=== PATIENT | male | born 1985 | race Caucasian/White ===

== ENCOUNTER 2016-06-23 20:44 | Emergency (ER) | payer OTHER ==
[2016-06-23 20:47] VITALS: BP 135/78; PULSE 84; RESP 18; TEMP 98.8
[2016-06-23] MEDS ORDERED: CLINDAMYCIN 150 MG CAP PO STA (20:57)
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
== END 2016-06-23 21:05 | disposition home or self-care (01) ==
LOC: EC 20:44
DX: K02.9 Dental caries, unspecified (principal); F17.200 Nicotine dependence, unspecified, uncomplicated; Z88.0 Allergy status to penicillin
CPT/HCPCS: 99282

== ENCOUNTER 2020-08-13 13:11 | Observation (INO) | payer OTHER ==
[2020-08-13] MEDS ORDERED: ASPIRIN 81 MG PO STA (13:30)
[2020-08-13] MEDS ORDERED: NITROGLYCERIN OINT 1 INCH/GM PACKET TOPICAL STA (13:30)
[2020-08-13] MEDS ORDERED: SODIUM CHLORIDE 0.9% 1,000 ML IV ONE (13:39)
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
[2020-08-13] MEDS ORDERED: LORazepam 2 MG/ML INJ IV STA (13:40)
--- NOTE | 2020-08-13 14:01 | XR ---
EXAMINATION TYPE: XR chest 2V DATE OF EXAM: 08/13/2020 COMPARISON: 06/16/1949 TECHNIQUE: PA and lateral views submitted. HISTORY: Chest pain FINDINGS: The lungs are clear and there is no pneumothorax, pleural effusion, or focal pneumonia. Size normal . No overt failure. Mild hyperinflation. IMPRESSION: 1. No acute process.
[2020-08-13 14:27] LABS: Basophils % (A) 1 %; Eosinophils # (A) 0.1 k/uL (0-0.7); Eosinophils % (A) 2 %; HCT 47.9 % (39.0-53.0); HGB 16.9 gm/dL (13.0-17.5); Lymphocytes # (A) 1.8 k/uL (1.0-4.8); Lymphocytes % (A) 24 %; MCH 31.7 pg (25.0-35.0); MCHC 35.2 g/dL (31.0-37.0); Mean Platelet Volume 7.4; Monocytes # (A) 0.8 k/uL (0-1.0); Monocytes % (A) 10 %; Neutrophils # (A) 4.8 k/uL (1.3-7.7); Neutrophils % (A) 63 %; Platelet Count 187 k/uL (150-450); RBC 5.32 m/uL (4.30-5.90); RDW 12.7 % (11.5-15.5); WBC 7.7 k/uL (3.8-10.6)
[2020-08-13 14:35] LABS: Partial Thromboplastin Time 23.1 sec (22.0-30.0); Prothrombin Time 10.5 sec (9.0-12.0)
[2020-08-13 14:37] LABS: ALT 28 U/L (4-49); AST 45 U/L (17-59); African American GFR (CKD) >90 (>60 ml/min/1.73 sqM); Albumin 4.6 g/dL (3.5-5.0); Alkaline Phosphatase 57 U/L (38-126); Anion Gap 11 mmol/L; Blood Urea Nitrogen 10 mg/dL (9-20); Calcium 9.7 mg/dL (8.4-10.2); Carbon Dioxide 22 mmol/L (22-30); Chloride 107 mmol/L (98-107); Glucose 102 mg/dL (74-99); Magnesium 1.9 mg/dL (1.6-2.3); Non-African American GFR(CKD) >90 (>60 ml/min/1.73 sqM); Sodium 140 mmol/L (137-145); Total Bilirubin 0.4 mg/dL (0.2-1.3); Total Protein 7.3 g/dL (6.3-8.2)
[2020-08-13] MEDS ORDERED: HEPARIN SODIUM 1,000 UN/ML (10ML VL) IV STA (15:02)
[2020-08-13] MEDS ORDERED: NITROGLYCERIN SL TABS 0.4 MG TAB SUBLINGUAL PRN (15:07)
[2020-08-13] MEDS ORDERED: HEPARIN SOD,PORK IN 0.45% NACL 25,000 UNIT in 0.45% NACL 1 250ML.BAG IV SCH (15:15)
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
[2020-08-13] MEDS ORDERED: IBUPROFEN 400 MG TAB PO STA (21:38)
[2020-08-13] MEDS: NICOTINE 14MG/24HR PATCH TRANSDERM SCH (22:21)
[2020-08-13] MEDS: NITROGLYCERIN OINT 1 INCH/GM PACKET TOPICAL SCH ×2 (22:23→23:05)
[2020-08-14] MEDS ORDERED: HEPARIN SODIUM 1,000 UN/ML (10ML VL) IV PRN (00:37)
[2020-08-14 02:27] VITALS: RESP 16
[2020-08-14] MEDS: NITROGLYCERIN OINT 1 INCH/GM PACKET TOPICAL SCH (04:38)
[2020-08-14] MEDS: NICOTINE 14MG/24HR PATCH TRANSDERM SCH (08:08)
[2020-08-14] MEDS ORDERED: ASPIRIN 325 MG TAB PO SCH (09:00)
[2020-08-14] MEDS ORDERED: ASPIRIN 81 MG PO SCH (09:00)
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
[2020-08-14 11:13] LABS: Chol/HDL Ratio 2.27; LDL Cholesterol,Calculated 53.2 mg/dL (0.0-131.0); VLDL Calculation 12.8 mg/dL (5.00-40.00)
--- NOTE | 2020-08-14 12:21 | ECHOF ---
Referral Reason:LV function MEASUREMENTS -------- HEIGHT: 170.2 cm WEIGHT: 71.7 kg BP: RVIDd: 3.0 cm (< 3.3) IVSd: 0.9 cm (0.6 - 1.1) LVIDd: 4.9 cm (3.9 - 5.3) LVPWd: 1.0 cm (0.6 - 1.1) IVSs: 1.1 cm LVIDs: 3.6 cm LVPWs: 1.5 cm LA Diam: 3.1 cm (2.7 - 3.8) LAESV Index (A-L): 15.04 ml/m Ao Diam: 3.1 cm (2.0 - 3.7) AV Cusp: 2.2 cm (1.5 - 2.6) LA Diam: 3.5 cm (2.7 - 3.8) MV EXCURSION: 22.278 mm (> 18.000) MV EF SLOPE: 99 mm/s (70 - 150) EPSS: 0.4 cm MV E Heath: 0.97 m/s MV DecT: 197 ms MV A Heath: 1.11 m/s MV E/A Ratio: 0.87 RAP: 5.00 mmHg RVSP: 25.41 mmHg FINDINGS -------- Sinus rhythm. This was a technically good study. LV size, wall thickness and systolic function are normal, with an EF greater than 55%. The left veronika tricular size is normal. The right ventricle is normal in size. Normal LA size by volume 22+/-6 ml/m2. The right atrial size is normal. The aortic valve is trileaflet, and appears structurally normal. No aortic stenosis or regurgitation. The mitral valve leaflets are mildly thickened. Mild mitral regurgitation is present. The tricuspid valve appears structurally normal. Mild tricuspid regurgitation present. Right vent ricular systolic pressure is normal at < 35 mmHg. There is no pulmonic regurgitation present. The aortic root size is normal. There is no pericardial effusion. CONCLUSIONS -------- 1. LV size, wall thickness and systolic function are normal, with an EF greater than 55%. 2. The left ventricular size is normal. 3. Normal LA size by volume 22+/-6 ml/m2. 4. The aortic valve is trileaflet, and appears structurally normal. No aortic stenosis or regurgitati on. 5. The mitral valve leaflets are mildly thickened. 6. Mild mitral regurgitation is present. 7. Mild tricuspid regurgitation present. 8. There is no pericardial effusion. PASSENGER REPRESENTATIVE: Kassandra Gabriel RDCS
--- NOTE | 2020-08-14 13:49 | ECHOS ---
STRESS ECHOCARDIOGRAM DATE OF SERVICE: AGE: 35 SEX: M HT: 5'7" WT: 158 lbs. PROTOCOL: STAGE: 4 DURATION OF EXERCISE: 12:01 HEART RATE REST: 82 BLOOD PRESSURE REST: 114/50 MAXIMUM HEART RATE ACHIEVED: 165 MAXIMUM BLOOD PRESSURE: 114/50 85% MPHR: 165 100% MPHR: 194/91 METS: 12.3 RESULTS: Baseline rhythm is a sinus mechanism, rate of 82, normal axis and intervals, normal electrocardiogram. Baseline blood pressure 114/50 minute Hg. The patient exercised on Joseph protocol for 12 minutes 1 second reaching peak rate 165 beats per minute which is equal to 90% maximum predicted heart rate. Peak blood pressure 194/91 mmHg. Test was terminated due to significant fatigue. There was no chest pain. Electrocardiograph monitoring revealed no evidence of diagnostic ischemic ST deviation. FINDINGS: Baseline echocardiogram revealed normal wall motion. At peak exercise, there was normal wall motion augmentation with no hypokinesis or dyskinesis. CONCLUSION: 1. Good exercise tolerance with normal electrocardiographic response to exercise. 2. Normal stress echocardiogram with no evidence of stress-induced ischemia. MMODL / IJN: [id number] /
[2020-08-14 14:07] LABS: Hemoglobin A1C 5.5 % (4.0-6.0)
[2020-08-14 14:59] VITALS: BP 127/88; PULSE 75; TEMP 98.2
[2020-08-14] MEDS ORDERED: CIPROFLOXACIN-DEXAMETH 0.3-0.1% DROPS 7.5 ML BTL LEFT EAR SCH (16:00)
[2020-08-14] MEDS ORDERED: CLARITHROMYCIN 500 MG TAB PO SCH (21:00)
--- NOTE | 2020-08-15 06:15 | CONS ---
CONSULTATION DATE OF CONSULTATION: 08/14/2020 REASON FOR THE CONSULTATION: Draining left ear. HISTORY OF PRESENT ILLNESS: This patient is a 35-year-old male who was admitted via the [facility] Emergency Room on 08/13/2020 with a major complaint of chest pain. While in the emergency room, the patient was given nitroglycerin and aspirin and this seemed to relieve his chest pain. An EKG was unremarkable but it was determined to admit the patient for further evaluation. In addition, this patient stated he had a draining left ear which had been going on for approximately 3 weeks. He apparently had been on one particular antibiotic and this did not seem to help and he has an allergy to PENICILLIN. Prior to 3 weeks ago, he did not have any problems with respect to ear infections or ear pain and he has never had ear tubes. The patient admits to using Q-Tips to clean his ears. I advised him to stop for obvious health reasons. ALLERGIES: PENICILLIN. SOCIAL HISTORY: He smokes 1/2 to a pack of cigarettes per day and we urged him to quit for obvious health reasons. FAMILY HISTORY: Cancer and also family history of heart disease. MEDICATIONS: Prior to his admission he was not on any medications. PAST MEDICAL HISTORY: There is no history of asthma, diabetes mellitus or hypertension. REVIEW OF SYSTEMS: The review of systems is essentially unremarkable. PHYSICAL EXAMINATION: This patient is a 35-year-old male who is alert, cooperative and well-oriented to time and place and is in no acute distress at this time. HEENT EXAMINATION: Shows patient is normocephalic. Examination right ear reveals right canal completely devoid of any wax. Tympanic membrane on the right side is completely unremarkable. Examination of the left ear reveals left ear is completely filled with purulent material and therefore the left tympanic membrane could not be observed. Pupils equal, round, react to light and accommodation. Extraocular movements within normal limits. Intranasal examination of oropharynx and cranial nerves 2-12 and remainder of the head and neck exam is all within normal limits. CHEST CARDIOVASCULAR: Both lung car are clear to percussion and auscultation. Patient is in regular sinus rhythm. S1, S2 are present without any evidence of any murmurs S3s or S4. ABDOMEN: There is no evident masses, megaly or tenderness. The abdomen is soft. The remainder of physical exam is unremarkable. IMPRESSION: 1. Left acute suppurative otitis media, left acute otitis media, perforation of left tympanic membrane? 2. Decreased hearing secondary to conductive hearing loss because either the ear canal being filled with purulent material or their is a perforation. PLAN: We are recommend placing the patient on Biaxin 500 mg p.o. b.i.d., and he should be discharged on this for 10 days. In addition to this, we will start him on Ciprodex otic suspension 4 drops in left ear t.i.d. until the 7.5 mL bottle is completely gone. When the patient is discharged, he should be given the remainder of this medication to take home. I have emphasized to him the importance of continuing the medication and that 90-95% of these type of perforations, if there is a perforation, tend to heal within the next 2-3 weeks . The patient stated that originally he had left ear pain and subsequently he sneezed and it was after the sneeze that he noticed there was a bloody purulent discharge from the left ear.He eventually was seen by a physician who simply told him that he had ruptured his eardrum, but did not place him on any medications. I have advised the patient that he should use his ear drops religiously, 4 drops in left ear 3 times daily until the medication is gone. He should stop using Q-Tips to clean his ears, although the Q-Tips did not cause his problem. Unfortunately, patients who regularly use Q-tips are subject to developing itchy ears or so-called eczematoid external otitis, which if it occurs it is generally a permanent condition. I demonstrated to the patient the proper way to clean his ears and dry his ears after a shower. Unfortunately, because has Medicaid for his health insurance plan, my office does not accept Medicaid and I do not even have a Medicaid number. However, I advised the patient that he can contact his corrective therapy aide and certainly he should be set up with a primary care physician. At that time the primary care physician can follow his left ear and make sure that the perforation has completely healed. If it does not heal, then certainly he can refer him to an ENT physician who accepts Medicaid insurance. I cautioned the patient that he should avoid pinching his nostrils when he blows his nose for the next 2 weeks and if he has to sneeze, he should open his mouth and let the force of the sneeze come out of his mouth, so as not to push pressure up into the eustachian tube and into the ear which might re-rupture the eardrum if it is healed, assuming it has ruptured in the first place. This patient can be discharged home at any time from a ENT standpoint. Again, I will not be able to see him for followup my office and I have instructed him to contact his case resource manager to find out which primary care physicians in the community are accepting Medicaid. I want to take this opportunity to thank you for allowing me to assist in the care of your patient. If I can be of any further assistance, please feel free to call my office. EMERY / HETAL: [id number] / RC
--- NOTE | 2020-08-15 15:54 | P.DS ---
Providers Date of admission: 08/13/20 15:07 Expected date of discharge: 08/14/20 Attending physician: Brandy Kimball Consults: 08/13/20 15:07 Consult Physician Urgent Consulting Provider: [facility] Consult Reason/Comments: Unstable angina Do you want consulting provider notified?: Yes 08/14/20 00:07 Consult Physician Routine Consulting Provider: Jerald Pelaez Consult Reason/Comments: Left ear discharge Do you want consulting provider notified?: Yes, Notify in am Primary care physician: Stated None Hospital Course: Final diagnosis Chest pain Acute coronary syndrome ruled out Family history of [place] Active smoker Left ear discharge secondary to eardrum rupture Discharge disposition Patient is being discharged in a stable condition with guarded prognosis to home. Patient will follow-up with Dr. Stanley in the outpatient setting upon discharge. Patient also instructed to follow-up with ENT Dr. Pelaez or speak to his insurance and find a provider that will accept his insurance for outpatient follow-up. Total time taken is greater than 35 minutes. Hospital course Mr. Barrett is a 35-year-old male with a past medical history of smoking and strong family history of heart disease coming into the hospital with a chief complaint of chest pain. Patient states that he was at work this morning when he started to feel substernal chest pain that was very severe in intensity. He also felt hot and was having diaphoresis at that time when he had the chest pain. He said he felt short of breath at that time. Patient felt that he would pass out and leaned to the ground but there was no loss of consciousness or syncopal episode. Patient denied having any nausea or vomiting. He denies any radiation of the pain to the left arm or jaw or back. He has significant history of smoking one pack a day for the past 20 years. He mentions that his father had a history of heart attack a in his 30s. Patient denies having any recent travel, no lower extremity swelling. Patient denies having any cough or sputum production. No abdominal pain nausea vomiting or diarrhea. No dysuria or hematuria. Patient states that he has discharge from his left ear that has been going on for past 3 weeks. He states that he wanted to see ENT but due to insurance issues he could not get an appointment. He also complains of hearing loss in his left ear. Patient denies having any headaches or blurring of vision. There was no loss of consciousness or syncopal episodes. In the ER at the time of admission patient's vitals temperature 98.2, heart rate 99, respiratory rate 18, blood pressure 122/74, saturating at 99% on 2 L of nasal cannula. Reviewing his labs white count of 7.7, hemoglobin 16.9, platelets 187. Sodium 140, potassium 4, chloride 107, bicarb 22, BUN 10, creatinine 0.9. Troponin less than 0.0122. Reyes virus PCR is negative. Chest x-ray negative for any acute cardiopulmonary process and EKG done showing sinus tachycardia with no ST or T-wave changes. 08/14/2020 Patient is seen in follow-up this morning and and underwent stress echo with cardiology which was negative. Urology also continues to have left ear pain and drainage and was recently diagnosed with eardrum rupture and was seen and evaluated by ENT and started on oral antibiotics along with eardrops by Dr. Pelaez. Instructed the patient to call his insurance to find out an accepting physician ENT as Dr. Pelaez's office does not accept Medicaid. Currently no reports of chest pain, shortness of breath, or palpitations. Patient is afebrile. No reports of nausea or vomiting and patient is tolerating diet. Patient will be discharged home today. On exam vital signs are stable. Cardio S1, S2 are muffled. Respiratory system shows diminished breath sounds at the bases with no wheezing or rhonchi noted. Abdomen is soft and nontender. Nervous system shows no focal deficits. Please refer to medication reconciliation sheet for a list of medications. Plan - Discharge Summary Discharge Rx Participant: Yes New Discharge Prescriptions: New Clarithromycin [Biaxin] 500 mg PO BID 10 Days #20 tab Ciprofloxacin-Dexameth [Ciprodex Otic Susp] 4 drops LEFT EAR TID #7.5 ml Discharge Medication List Ciprofloxacin-Dexameth [Ciprodex Otic Susp] 4 drops LEFT EAR TID #7.5 ml 08/14/20 [Rx] Clarithromycin [Biaxin] 500 mg PO BID 10 Days #20 tab 08/14/20 [Rx] Follow up Appointment(s)/Referral(s): Colleen Stanley MD [REFERRING] - 1-2 Days Patient Instructions/Handouts: Ruptured Eardrum (DC), Ear Infection (DC) Activity/Diet/Wound Care/Special Instructions: Activity Limited until follow-up Follow-up with primary care provider or establish with one as soon as possible Continue with antibiotics per ENT continue with eardrops per ENT Follow-up with ear nose throat specialist outpatient Discuss with your insurance about ENT providers that except your insurance Monitor for fever and treat with Tylenol and/or Motrin Continue current diet Avoid alcohol and tobacco use Discharge Disposition: HOME SELF-CARE
== END 2020-08-14 16:40 | disposition home or self-care (01) ==
LOC: EC 13:11 → 6NMEDSUR 15:07
PROVIDERS: ADMIT Internal Medicine; ATTEND Internal Medicine
DX: R07.89 Other chest pain (principal); H66.012 Acute suppurative otitis media with spontaneous rupture of ear drum, left ear; H90.2 Conductive hearing loss, unspecified; R00.0 Tachycardia, unspecified; R61 Generalized hyperhidrosis; R06.02 Shortness of breath; F17.210 Nicotine dependence, cigarettes, uncomplicated; Z20.822 Contact with and (suspected) exposure to COVID-19; Z88.0 Allergy status to penicillin; Z87.81 Personal history of (healed) traumatic fracture; Z98.890 Other specified postprocedural states; Z72.89 Other problems related to lifestyle; Z82.49 Family history of ischemic heart disease and other diseases of the circulatory system; Z80.9 Family history of malignant neoplasm, unspecified
CPT/HCPCS: 96376 ×2; 96366 ×3; 93005 ×2; 96365; 96375; 99291; 36415; 93306; 93351; 80061; 80053; 83735; 84484; 85025; 85610; 85730 ×2; 83036; 87635; 71046; G0378 ×2; S4990 ×2; J2060; J1644 ×3

== ENCOUNTER 2020-09-14 08:46 | Emergency (ER) | payer OTHER ==
[2020-09-14 08:52] VITALS: RESP 18
[2020-09-14] MEDS ORDERED: SODIUM CHLORIDE 0.9% 500 ML 500 ML IV STA (09:14)
[2020-09-14] MEDS ORDERED: LORazepam 2 MG/ML INJ IV STA (09:31)
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
--- NOTE | 2020-09-14 09:32 | XR ---
EXAMINATION TYPE: XR chest 2V DATE OF EXAM: 09/14/2020 COMPARISON: 08/13/2020 HISTORY: Heart is racing after taking ecstasy. TECHNIQUE: Frontal and lateral views of the chest are obtained. FINDINGS: There is no focal air space opacity, pleural effusion, or pneumothorax seen. The cardiac silhouette size is within normal limits. The osseous structures are intact. IMPRESSION: No acute cardiopulmonary process.
[2020-09-14 09:36] LABS: Basophils % (A) 1 %; Eosinophils # (A) 0.2 k/uL (0-0.7); Eosinophils % (A) 2 %; HCT 49.7 % (39.0-53.0); HGB 17.1 gm/dL (13.0-17.5); Lymphocytes # (A) 1.6 k/uL (1.0-4.8); Lymphocytes % (A) 23 %; MCH 30.9 pg (25.0-35.0); MCHC 34.5 g/dL (31.0-37.0); MCV 89.5 fL (80.0-100.0); Mean Platelet Volume 7.1; Monocytes # (A) 0.7 k/uL (0-1.0); Monocytes % (A) 11 %; Neutrophils # (A) 4.2 k/uL (1.3-7.7); Neutrophils % (A) 61 %; Platelet Count 149 k/uL (150-450); RBC 5.55 m/uL (4.30-5.90); RDW 12.7 % (11.5-15.5); WBC 6.9 k/uL (3.8-10.6)
[2020-09-14 09:46] LABS: Amphetamine Screen,Urine Detected (NotDetected); Barbiturate Screen,Urine Not Detected (NotDetected); Benzodiazepines Screen,Urine Not Detected (NotDetected); Cocaine Screen,Urine Not Detected (NotDetected); Methadone Screen, Urine Not Detected (NotDetected); Opiate Screen,Urine Not Detected (NotDetected); Oxycodone Screen, Urine Not Detected (NotDetected); Phencyclidine Screen,Urine Not Detected (NotDetected); Tricyclic Antidepressant,Urine Not Detected (NotDetected); Urn Cannabinoid Scrn Detected (NotDetected)
[2020-09-14 09:47] LABS: INR 0.9 (<1.2); Partial Thromboplastin Time 23.3 sec (22.0-30.0); Prothrombin Time 10.2 sec (9.0-12.0)
[2020-09-14 09:54] LABS: ALT 31 U/L (4-49); AST 42 U/L (17-59); African American GFR (CKD) >90 (>60 ml/min/1.73 sqM); Albumin 4.7 g/dL (3.5-5.0); Alkaline Phosphatase 67 U/L (38-126); Anion Gap 11 mmol/L; Blood Urea Nitrogen 7 mg/dL (9-20); Calcium 9.9 mg/dL (8.4-10.2); Carbon Dioxide 22 mmol/L (22-30); Chloride 105 mmol/L (98-107); Glucose 97 mg/dL (74-99); Non-African American GFR(CKD) >90 (>60 ml/min/1.73 sqM); Sodium 138 mmol/L (137-145); Total Bilirubin 0.8 mg/dL (0.2-1.3); Total Protein 7.8 g/dL (6.3-8.2)
[2020-09-14 10:53] VITALS: BP 130/85; PULSE 104; TEMP 98.3
== END 2020-09-14 10:52 | disposition home or self-care (01) ==
LOC: EC 08:46
DX: R07.89 Other chest pain (principal); F15.10 Other stimulant abuse, uncomplicated; F17.200 Nicotine dependence, unspecified, uncomplicated; F12.90 Cannabis use, unspecified, uncomplicated; Z88.0 Allergy status to penicillin
CPT/HCPCS: 36415; 93005; 80053; 83735; 84484; 85025; 85610; 85730; 80306; 71046; 99285; 96374; J2060

== ENCOUNTER 2020-10-08 13:33 | Emergency (ER) | payer OTHER ==
[2020-10-08 14:04] VITALS: BP 111/77; PULSE 115; RESP 16; TEMP 99.3
--- NOTE | 2020-10-08 14:45 | XR ---
EXAMINATION TYPE: XR chest 2V DATE OF EXAM: 10/08/2020 COMPARISON: 09/14/2020 HISTORY: Cough, congestion TECHNIQUE: Chest is examined in the frontal and lateral projections. FINDINGS: Heart size is normal. The pulmonary vasculature is normal. The lungs are clear. IMPRESSION: 1. Normal 2 view chest
[2020-10-08] MEDS ORDERED: ACETAMINOPHEN TAB 500 MG TAB PO STA (15:05)
[2020-10-08] MEDS ORDERED: AZITHROMYCIN 500 MG TAB PO STA (15:13)
[2020-10-08] MEDS ORDERED: DOXYCYCLINE 100 MG CAP PO STA (15:17)
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
== END 2020-10-08 15:33 | disposition home or self-care (01) ==
LOC: EC 13:33
DX: J01.90 Acute sinusitis, unspecified (principal); R05 Cough; F17.200 Nicotine dependence, unspecified, uncomplicated; F12.90 Cannabis use, unspecified, uncomplicated; Z20.822 Contact with and (suspected) exposure to COVID-19; Z88.0 Allergy status to penicillin; Z88.2 Allergy status to sulfonamides; Z88.1 Allergy status to other antibiotic agents
CPT/HCPCS: 71046; 87635; 99283

== ENCOUNTER 2021-02-13 13:21 | Emergency (ER) | payer OTHER ==
[2021-02-13 13:32] VITALS: BP 118/73; TEMP 97.8
[2021-02-13] MEDS ORDERED: CIPROFLOXACIN-DEXAMETH 0.3-0.1% DROPS 7.5 ML BTL LEFT EAR STA (13:42)
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
[2021-02-13 14:28] VITALS: PULSE 70; RESP 16
== END 2021-02-13 14:28 | disposition home or self-care (01) ==
LOC: EC 13:21
DX: H66.92 Otitis media, unspecified, left ear (principal); F12.90 Cannabis use, unspecified, uncomplicated; Z87.891 Personal history of nicotine dependence; Z88.0 Allergy status to penicillin; Z88.1 Allergy status to other antibiotic agents; Z88.2 Allergy status to sulfonamides
CPT/HCPCS: 99282

== ENCOUNTER 2021-02-23 18:39 | Emergency (ER) | payer OTHER ==
[2021-02-23 19:49] VITALS: BP 111/74; PULSE 82; RESP 20; TEMP 98.4
[2021-02-23] MEDS: LEVOFLOXACIN 500 MG TAB PO STA (21:34)
[2021-02-23] MEDS: IBUPROFEN 600 MG TAB PO STA (21:34)
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
== END 2021-02-23 21:50 | disposition home or self-care (01) ==
LOC: EC 18:39
DX: H60.92 Unspecified otitis externa, left ear (principal); F12.90 Cannabis use, unspecified, uncomplicated; Z87.891 Personal history of nicotine dependence
CPT/HCPCS: 87070; 87205; 99282

== ENCOUNTER 2021-04-01 15:13 | Inpatient (IN) | payer OTHER ==
[2021-04-01] MEDS ORDERED: HYDROmorphone 1 MG/ML 1 ML SYRINGE IVP STA (16:43)
--- NOTE | 2021-04-01 18:01 | CT ---
EXAMINATION TYPE: CT brain wo con DATE OF EXAM: 04/01/2021 COMPARISON: None HISTORY: Right ear pain, mastoiditis, abnormal uptake temporal lobe. CT DLP: 995.5 mGycm Automated exposure control for dose reduction was used. Ventricles and sulci appear normal. There is no mass effect or midline shift. There is no sign of int racranial hemorrhage. The calvarium is intact. There is opacification of the left mastoid sinus. There is opacification of the left loan auditor y canal. There is however normal aeration of the epitympanic recess on the left side. There is aerati on of the left middle ear cavity. IMPRESSION: No intracranial abnormality. Changes of severe left-sided mastoiditis and otitis externa with complete opacification of the left e xternal auditory canal and soft tissue swelling around the left ear.
[2021-04-01] MEDS ORDERED: IBUPROFEN 400 MG TAB PO PRN (18:10)
[2021-04-01] MEDS ORDERED: NALOXONE 0.4 MG/ML 1 ML VIAL IV PRN (18:10)
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
[2021-04-01] MEDS: SODIUM CHLORIDE 0.9% 1,000 ML IV SCH (19:58)
[2021-04-01] MEDS: MORPHINE SULFATE 4 MG/ML SYRINGE IV PRN ×2 (19:58→23:55)
[2021-04-01] MEDS ORDERED: VANCOMYCIN IV PER PHARMACY 1 EACH MISC MISCELLANE PRN (22:12)
[2021-04-01] MEDS ORDERED: VANCOMYCIN 1,250 MG in SODIUM CHLORIDE 0.9% 250 ML IVPB ONE (23:00)
[2021-04-02] MEDS: SODIUM CHLORIDE 0.9% 1,000 ML IV SCH ×3 (02:45→18:36)
[2021-04-02 03:24] LABS: Basophils % (A) 1 %; Eosinophils # (A) 0.2 k/uL (0-0.7); Eosinophils % (A) 3 %; HCT 47.6 % (39.0-53.0); HGB 15.2 gm/dL (13.0-17.5); Lymphocytes # (A) 1.9 k/uL (1.0-4.8); Lymphocytes % (A) 35 %; MCHC 31.9 g/dL (31.0-37.0); MCV 94.1 fL (80.0-100.0); Mean Platelet Volume 7.6; Monocytes # (A) 0.7 k/uL (0-1.0); Monocytes % (A) 13 %; Neutrophils # (A) 2.6 k/uL (1.3-7.7); Neutrophils % (A) 46 %; Platelet Count 160 k/uL (150-450); RBC 5.06 m/uL (4.30-5.90); RDW 12.7 % (11.5-15.5); WBC 5.6 k/uL (3.8-10.6)
[2021-04-02 03:53] LABS: African American GFR (CKD) >90 (>60 ml/min/1.73 sqM); Anion Gap 10 mmol/L; Blood Urea Nitrogen 7 mg/dL (9-20); Calcium 8.8 mg/dL (8.4-10.2); Carbon Dioxide 20 mmol/L (22-30); Chloride 105 mmol/L (98-107); Glucose 126 mg/dL (74-99); Non-African American GFR(CKD) >90 (>60 ml/min/1.73 sqM); Potassium 4.2 mmol/L (3.5-5.1); Sodium 135 mmol/L (137-145)
[2021-04-02] MEDS: MORPHINE SULFATE 4 MG/ML SYRINGE IV PRN ×2 (04:30→08:26)
--- NOTE | 2021-04-02 07:59 | XR ---
EXAMINATION TYPE: XR chest 2V DATE OF EXAM: 04/02/2021 COMPARISON: Chest x-ray October 08, 2020 HISTORY: COVID. TECHNIQUE: Frontal and lateral views of the chest are obtained. FINDINGS: There is no new suspicious focal air space opacity, pleural effusion, or pneumothorax seen . The cardiac silhouette size remains within normal limits. The osseous structures are intact. IMPRESSION: No acute process. No significant change from prior.
[2021-04-02] MEDS ORDERED: VANCOMYCIN 1,000 MG in SODIUM CHLORIDE 0.9% 250 ML IVPB ONE (08:00)
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
[2021-04-02] MEDS: traMADol 50 MG TAB PO PRN ×3 (11:03→21:48)
[2021-04-02] MEDS: HEPARIN SODIUM,PORCINE/PF 5,000 UNIT/0.5 ML SYRINGE SQ SCH ×2 (11:04→20:22)
[2021-04-02] MEDS: FAMOTIDINE 20 MG/2 ML VIAL IV SCH ×2 (11:04→20:19)
[2021-04-02] MEDS: ACETAMINOPHEN TAB 325 MG TAB PO PRN ×2 (13:20→20:29)
[2021-04-02] MEDS: NICOTINE 21MG/24HR PATCH TRANSDERM SCH (20:19)
[2021-04-02] MEDS: VANCOMYCIN 1,250 MG in SODIUM CHLORIDE 0.9% 250 ML IVPB SCH (20:19)
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
[2021-04-02] MEDS: CEFEPIME 2 GM in SODIUM CHLORIDE 0.9% 100 ML IVPB SCH (21:48)
[2021-04-03] MEDS: SODIUM CHLORIDE 0.9% 1,000 ML IV SCH ×3 (00:20→20:16)
[2021-04-03] MEDS: ACETAMINOPHEN TAB 325 MG TAB PO PRN ×2 (01:08→07:28)
[2021-04-03] MEDS: traMADol 50 MG TAB PO PRN (03:46)
[2021-04-03 06:54] LABS: African American GFR (CKD) >90 (>60 ml/min/1.73 sqM); Non-African American GFR(CKD) >90 (>60 ml/min/1.73 sqM)
[2021-04-03] MEDS: VANCOMYCIN 1,250 MG in SODIUM CHLORIDE 0.9% 250 ML IVPB SCH (07:28)
[2021-04-03] MEDS: CEFEPIME 2 GM in SODIUM CHLORIDE 0.9% 100 ML IVPB SCH ×2 (07:29→20:15)
[2021-04-03] MEDS: HEPARIN SODIUM,PORCINE/PF 5,000 UNIT/0.5 ML SYRINGE SQ SCH ×2 (07:29→20:41)
[2021-04-03] MEDS: FAMOTIDINE 20 MG/2 ML VIAL IV SCH ×2 (07:29→20:15)
[2021-04-03] MEDS: NICOTINE 21MG/24HR PATCH TRANSDERM SCH (07:29)
[2021-04-03] MEDS ORDERED: HYDROmorphone 0.5 MG/0.5 ML SYRINGE IVP STA (07:54)
[2021-04-03 12:59] VITALS: BMI 23.5
[2021-04-03] MEDS: HYDROcodone/APAP 5-325MG 1 EACH TAB PO PRN ×2 (13:37→20:14)
[2021-04-03] MEDS: KETOROLAC 30 MG/ML 1 ML VIAL IVP PRN ×2 (17:02→23:08)
[2021-04-03] MEDS ORDERED: VANCOMYCIN TROUGH DUE 1 EACH MISC MISCELLANE ONE (19:00)
[2021-04-03] MEDS: VANCOMYCIN 1,500 MG in SODIUM CHLORIDE 0.9% 250 ML IVPB SCH (20:14)
[2021-04-03] MEDS: CIPROFLOXACIN-DEXAMETH 0.3-0.1% DROPS 7.5 ML BTL LEFT EAR SCH (20:15)
--- NOTE | 2021-04-03 22:01 | P.PN ---
Subjective Progress Note Date: 04/03/21 Principal diagnosis: Left otitis media and mastoiditis Patient is 35-year-old male with a past medical history significant for recurrent left ear infection has been going on for more than 6 months and has been treated with multiple courses of antibiotic admitted to the hospital with worsening left ear pain with a CT done at [facility] suspicious for mastoiditis. On today's evaluation of this to 04/03/2021, the patient denies having any fever or chills, patient is currently breathing comfortably, still complaining of pain to the left ear, no chest pain no shortness of breath or cough no abdominal pain no diarrhea Objective - Vital Signs Vital signs: Vital Signs Temp 98.6 F 04/03/21 18:00 Pulse 65 04/03/21 18:00 Resp 16 04/03/21 18:00 BP 122/65 04/03/21 18:00 Pulse Ox 98 04/03/21 18:00 Intake & Output 04/03/21 04/03/21 04/04/21 06:59 18:59 06:59 Intake Total 2310 950 Balance 2310 950 Weight 68.039 kg Intake: Intake, IV Titration 1350 350 Amount Cefepime 2 gm In Sodium 100 100 Chloride 0.9% 100 ml @ 25 mls/hr IVPB Q12HR JUAN RAMON Rx #:[id number] Sodium Chloride 0.9% 1, 1000 000 ml @ 130 mls/hr IV . Q7H42M JUAN RAMON Rx#:[id number] Vancomycin 1,250 mg In 250 250 Sodium Chloride 0.9% 250 ml @ 125 mls/hr IVPB Q12H JUAN RAMON Rx#:[id number] Oral 960 600 Other: Voiding Method Toilet Toilet # Voids 3 800 # Bowel Movements 0 - Exam General description is an middle-aged male lying in bed in no distress. HEENT: Left ear currently with no swelling redness or drainage Respiratory system:Unlabored breathing, decreased intensity in breath sounds. No wheeze. Heart S1, S2. Regular rate and rhythm. Abdomen soft, no tenderness. - Labs CBC & Chem 7: 04/02/21 02:55 04/03/21 05:45 Labs: Abnormal Lab Results - Last 24 Hours (Table) 04/03/21 Range/Units 05:45 C-Reactive Protein 1.0 H (<1.0) mg/dL Microbiology - Last 24 Hours (Table) 04/02/21 08:41 Gram Stain - Preliminary Ear - Left Wound Culture - Preliminary Assessment and Plan (1) COVID-19 Current Visit: Yes Status: Acute Code(s): U07.1 - COVID-19 SNOMED Code(s): 351027805 (2) Mastoiditis of left side Current Visit: Yes Status: Acute Code(s): H70.92 - UNSPECIFIED MASTOIDITIS, LEFT EAR SNOMED Code(s): 7101054289525970 Plan: 1-patient with recurrent left otitis media and concern for possible mastoiditis waiting for ENT evaluation and possible deep cultures to continue with the cefepime and vancomycin 2-positive covid test patient did not have any respiratory symptoms, afebrile and no hypoxemia treatment is supportive
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
[2021-04-04] MEDS: HYDROcodone/APAP 5-325MG 1 EACH TAB PO PRN ×4 (02:18→20:36)
[2021-04-04] MEDS: KETOROLAC 30 MG/ML 1 ML VIAL IVP PRN ×4 (05:41→22:57)
[2021-04-04] MEDS: SODIUM CHLORIDE 0.9% 1,000 ML IV SCH ×2 (05:43→20:48)
[2021-04-04 06:22] LABS: Basophils % (A) 1 %; Eosinophils # (A) 0.1 k/uL (0-0.7); Eosinophils % (A) 3 %; HCT 45.4 % (39.0-53.0); HGB 14.6 gm/dL (13.0-17.5); Lymphocytes # (A) 1.8 k/uL (1.0-4.8); Lymphocytes % (A) 43 %; MCH 30.2 pg (25.0-35.0); MCHC 32.2 g/dL (31.0-37.0); MCV 93.8 fL (80.0-100.0); Mean Platelet Volume 8.1; Monocytes # (A) 0.5 k/uL (0-1.0); Monocytes % (A) 11 %; Neutrophils # (A) 1.7 k/uL (1.3-7.7); Neutrophils % (A) 40 %; Platelet Count 146 k/uL (150-450); RBC 4.84 m/uL (4.30-5.90); WBC 4.2 k/uL (3.8-10.6)
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
[2021-04-04 06:42] LABS: African American GFR (CKD) >90 (>60 ml/min/1.73 sqM); Anion Gap 5 mmol/L; Blood Urea Nitrogen 9 mg/dL (9-20); Calcium 8.7 mg/dL (8.4-10.2); Carbon Dioxide 22 mmol/L (22-30); Chloride 109 mmol/L (98-107); Glucose 88 mg/dL (74-99); Non-African American GFR(CKD) >90 (>60 ml/min/1.73 sqM); Potassium 4.4 mmol/L (3.5-5.1); Sodium 136 mmol/L (137-145)
[2021-04-04] MEDS: CIPROFLOXACIN-DEXAMETH 0.3-0.1% DROPS 7.5 ML BTL LEFT EAR SCH ×3 (08:28→20:38)
[2021-04-04] MEDS: HEPARIN SODIUM,PORCINE/PF 5,000 UNIT/0.5 ML SYRINGE SQ SCH ×2 (08:30→20:38)
[2021-04-04] MEDS: VANCOMYCIN 1,500 MG in SODIUM CHLORIDE 0.9% 250 ML IVPB SCH ×2 (08:30→20:37)
[2021-04-04] MEDS: NICOTINE 21MG/24HR PATCH TRANSDERM SCH (08:30)
[2021-04-04] MEDS: FAMOTIDINE 20 MG/2 ML VIAL IV SCH ×2 (08:30→20:37)
[2021-04-04] MEDS: CEFEPIME 2 GM in SODIUM CHLORIDE 0.9% 100 ML IVPB SCH (08:39)
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
[2021-04-05] MEDS: HYDROcodone/APAP 5-325MG 1 EACH TAB PO PRN ×4 (02:30→22:26)
[2021-04-05] MEDS: SODIUM CHLORIDE 0.9% 1,000 ML IV SCH ×4 (02:32→16:12)
[2021-04-05] MEDS: KETOROLAC 30 MG/ML 1 ML VIAL IVP PRN ×3 (05:28→18:14)
--- NOTE | 2021-04-05 06:08 | PN ---
PROGRESS NOTE DATE OF THE PROGRESS NOTE: 04/04/2021. SUBJECTIVE: Vital signs stable. The patient states that the pain in his left ear has decreased markedly. In addition to this, as expected, the Ballesteros wick that I previously inserted into his left ear has fallen out. I had previously advised the patient that once the swelling in the left ear decreased that the wick would most likely fall out. The Ballesteros wick allowed the Ciprodex otic drops to remain in the left ear and be more effective. OBJECTIVE: HEENT examination: Left ear reveals Ballesteros wick has extruded and the external auditory canal is now accessible with the otoscope. The patient still has significant purulent material in the left external auditory canal. One can see the central perforation that is located in the left tympanic membrane. I did not attempt to suction any of the debris out of the canal this time. My concern was that I might cause the patient to experience severe dizziness from the suction. The remainder of the head and neck exam, chest cardiovascular exam is unchanged since last visit. ASSESSMENT: 1. Left external otitis. 2. Left acute-mastoiditis. 3. Perforation of the left tympanic membrane. PLAN: From an ENT standpoint, because the patient has improved, he can be discharged home on antibiotic ear drops at any time. I have advised the patient that he should continue using the Ciprodex ear drops, 4 drops in the left ear 3 times daily until the bottle is completely gone. It would probably be a good idea to give the patient an an additional Ciprodex prescription to continue using at home. He has an appointment with an ENT specialist in [facility] towards the end of the month and I have urged him to keep that appointment this time. I will not need to see this patient for followup in my office after he is discharged. Again, he could be discharged to home at any time. I want to thank you for allowing me to assist in the care of this patient. MMODL / IJN: [id number] / RC
[2021-04-05 06:44] LABS: African American GFR (CKD) >90 (>60 ml/min/1.73 sqM); Non-African American GFR(CKD) >90 (>60 ml/min/1.73 sqM)
[2021-04-05] MEDS ORDERED: VANCOMYCIN TROUGH DUE 1 EACH MISC MISCELLANE ONE (07:00)
[2021-04-05] MEDS: NICOTINE 21MG/24HR PATCH TRANSDERM SCH (08:23)
[2021-04-05] MEDS: CIPROFLOXACIN-DEXAMETH 0.3-0.1% DROPS 7.5 ML BTL LEFT EAR SCH ×3 (08:24→22:28)
[2021-04-05] MEDS: VANCOMYCIN 1,500 MG in SODIUM CHLORIDE 0.9% 250 ML IVPB SCH ×2 (08:24→22:28)
[2021-04-05] MEDS: HEPARIN SODIUM,PORCINE/PF 5,000 UNIT/0.5 ML SYRINGE SQ SCH ×2 (08:31→22:27)
[2021-04-05] MEDS: FAMOTIDINE 20 MG/2 ML VIAL IV SCH ×2 (10:36→22:26)
[2021-04-05] MEDS: traMADol 50 MG TAB PO PRN ×2 (13:07→18:18)
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
--- NOTE | 2021-04-05 22:27 | P.PN ---
Subjective Progress Note Date: 04/04/21 Principal diagnosis: Left otitis media and mastoiditis Patient is 35-year-old male with a past medical history significant for recurrent left ear infection has been going on for more than 6 months and has been treated with multiple courses of antibiotic admitted to the hospital with worsening left ear pain with a CT done at [facility] suspicious for mastoiditis. On today's evaluation of this to 04/04/2021, the patient remains to be afebrile, patient is breathing comfortably on room air, the patient pain to the left ear has decreased intensity, no chest pain no shortness of breath or cough no abdominal pain no diarrhea Objective - Vital Signs Vital signs: Vital Signs Temp 99.1 F 04/04/21 14:00 Pulse 70 04/04/21 14:00 Resp 16 04/04/21 14:00 BP 150/83 04/04/21 14:00 Pulse Ox 98 04/04/21 14:00 Intake & Output 04/03/21 04/04/21 04/04/21 18:59 06:59 18:59 Intake Total 950 1830 296 Balance 950 1830 296 Weight 68.039 kg Intake: Intake, IV Titration 350 1350 Amount Cefepime 2 gm In Sodium 100 100 Chloride 0.9% 100 ml @ 25 mls/hr IVPB Q12HR [facility] Rx #:[id number] Sodium Chloride 0.9% 1, 1000 000 ml @ 130 mls/hr IV . Q7H42M [facility] Rx#:[id number] Vancomycin 1,250 mg In 250 Sodium Chloride 0.9% 250 ml @ 125 mls/hr IVPB Q12H [facility] Rx#:[id number] Vancomycin 1,500 mg In 250 Sodium Chloride 0.9% 250 ml @ 125 mls/hr IVPB Q12H [facility] Rx#:[id number] Oral 600 480 296 Other: Voiding Method Toilet Toilet Toilet # Voids 800 5 - Exam General description is an middle-aged male lying in bed in no distress. HEENT: Left ear with no swelling redness or drainage Respiratory system:Unlabored breathing, decreased intensity in breath sounds. No wheeze. Heart S1, S2. Regular rate and rhythm. Abdomen soft, no tenderness. - Labs CBC & Chem 7: 04/04/21 05:57 04/05/21 06:10 Labs: Abnormal Lab Results - Last 24 Hours (Table) 04/04/21 04/04/21 Range/Units 05:57 05:57 Plt Count 146 L (150-450) k/uL Sodium 136 L (137-145) mmol/L Chloride 109 H (98-107) mmol/L Microbiology - Last 24 Hours (Table) 04/02/21 08:41 Gram Stain - Preliminary Ear - Left Wound Culture - Preliminary Presumptive MRSA Assessment and Plan (1) COVID-19 Current Visit: Yes Status: Acute Code(s): U07.1 - COVID-19 SNOMED Code(s): 874528622 (2) Mastoiditis of left side Current Visit: Yes Status: Acute Code(s): H70.92 - UNSPECIFIED MASTOIDITIS, LEFT EAR SNOMED Code(s): 3082409372525725 Plan: 1-patient with recurrent left otitis media and concern for acute mastoiditis confirmed by ENT evaluation cultures are now growing presumptive MRSA, patient to continue with vancomycin, cefepime will be discontinued 2-positive covid test patient did not have any respiratory symptoms, afebrile and no hypoxemia treatment is supportive
--- NOTE | 2021-04-05 22:28 | P.PN ---
Subjective Progress Note Date: 04/05/21 Principal diagnosis: Left otitis media and mastoiditis Patient is 35-year-old male with a past medical history significant for recurrent left ear infection has been going on for more than 6 months and has been treated with multiple courses of antibiotic admitted to the hospital with worsening left ear pain with a CT done at [facility] suspicious for mastoiditis. On today's evaluation of this to 04/05/2021, the patient denies any fever or any chills, patient is complaining of more pain to the left heel area however no drainage, patient is breathing comfortably on room air and denies chest pain no shortness of breath or cough no abdominal pain no diarrhea Objective - Vital Signs Vital signs: Vital Signs Temp 97.7 F 04/05/21 18:00 Pulse 67 04/05/21 18:00 Resp 19 04/05/21 18:00 BP 143/87 04/05/21 18:00 Pulse Ox 98 04/05/21 18:00 Intake & Output 04/05/21 04/05/21 04/06/21 06:59 18:59 06:59 Intake Total 2210 300 Balance 2210 300 Intake: Intake, IV Titration 1810 Amount Sodium Chloride 0.9% 1, 1560 000 ml @ 130 mls/hr IV . [id number] [facility] Rx#:[id number] Vancomycin 1,500 mg In 250 Sodium Chloride 0.9% 250 ml @ 125 mls/hr IVPB Q12H [facility] Rx#:[id number] Oral 400 300 Other: Voiding Method Toilet Toilet # Voids 3 2 # Bowel Movements 0 - Exam General description is an middle-aged male lying in bed in no distress. HEENT: Left ear with no swelling redness or drainage Respiratory system:Unlabored breathing, decreased intensity in breath sounds. No wheeze. Heart S1, S2. Regular rate and rhythm. Abdomen soft, no tenderness. - Labs CBC & Chem 7: 04/04/21 05:57 04/05/21 06:10 Labs: Microbiology - Last 24 Hours (Table) 04/02/21 09:00 Anaerobic Culture - Final Ear - Left Anaerobic Gram Positive Cocci 04/02/21 08:41 Gram Stain - Final Ear - Left Wound Culture - Final Methicillin resist S. aureus Assessment and Plan (1) COVID-19 Current Visit: Yes Status: Acute Code(s): U07.1 - COVID-19 SNOMED Code(s): 498096017 (2) Mastoiditis of left side Current Visit: Yes Status: Acute Code(s): H70.92 - UNSPECIFIED MASTOIDITIS, LEFT EAR SNOMED Code(s): 8109759775469818 Plan: 1-patient with recurrent left otitis media and concern for acute mastoiditis co nfirmed by ENT evaluation cultures confirmed as MRSA and anaerobic gram- positive, patient to continue with vancomycin and Flagyl he be admitted PICC line has been ordered for at least 4 weeks of IV vancomycin pharmacy to dose 2-positive covid test patient did not have any respiratory symptoms, afebrile and no hypoxemia treatment is supportive Time with Patient: Less than 30
[2021-04-05] MEDS: metroNIDAZOLE 500 MG TAB PO SCH (22:39)
[2021-04-06] MEDS: traMADol 50 MG TAB PO PRN ×2 (01:30→16:07)
[2021-04-06] MEDS: KETOROLAC 30 MG/ML 1 ML VIAL IVP PRN ×3 (01:30→19:43)
[2021-04-06] MEDS: HYDROcodone/APAP 5-325MG 1 EACH TAB PO PRN ×3 (05:41→18:02)
[2021-04-06 05:57] LABS: African American GFR (CKD) >90 (>60 ml/min/1.73 sqM); Non-African American GFR(CKD) >90 (>60 ml/min/1.73 sqM)
[2021-04-06] MEDS: SODIUM CHLORIDE 0.9% 1,000 ML IV SCH ×2 (06:06→19:49)
[2021-04-06] MEDS ORDERED: HYDROmorphone 1 MG/ML 1 ML SYRINGE IVP STA (06:35)
[2021-04-06] MEDS: metroNIDAZOLE 500 MG TAB PO SCH ×3 (08:42→19:43)
[2021-04-06] MEDS: NICOTINE 21MG/24HR PATCH TRANSDERM SCH (08:42)
[2021-04-06] MEDS: HEPARIN SODIUM,PORCINE/PF 5,000 UNIT/0.5 ML SYRINGE SQ SCH ×3 (08:42→19:51)
[2021-04-06] MEDS: VANCOMYCIN 1,500 MG in SODIUM CHLORIDE 0.9% 250 ML IVPB SCH ×2 (08:42→21:10)
[2021-04-06] MEDS: CIPROFLOXACIN-DEXAMETH 0.3-0.1% DROPS 7.5 ML BTL LEFT EAR SCH ×3 (08:50→19:52)
[2021-04-06] MEDS: FAMOTIDINE 20 MG/2 ML VIAL IV SCH (08:50)
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
--- NOTE | 2021-04-06 17:31 | PN ---
PROGRESS NOTE ADDENDUM TO PROGRESS NOTE: DATE OF PROGRESS NOTE: 04/04/2021 Subjective, objective and assessment are as dictated. ADDITION TO PLAN: I am officially signing off of this case as a systems management consultant. The patient was scheduled to be discharged either today 04/04/2021 or tomorrow to 04/05/2021. As stated in the progress note, I do not need to see this patient for followup. He has an appointment to see an ENT specialist in [facility] toward the end of the month. Again, I have signed off of this patient. Thank you for allowing me to participate in the care of this patient. MMODL / IJN: [id number] / RC
[2021-04-06] MEDS ORDERED: VANCOMYCIN TROUGH DUE 1 EACH MISC MISCELLANE ONE (19:00)
[2021-04-06] MEDS: FAMOTIDINE 20 MG TAB PO SCH (19:43)
[2021-04-07] MEDS: traMADol 50 MG TAB PO PRN ×3 (00:22→21:44)
[2021-04-07] MEDS: HYDROcodone/APAP 5-325MG 1 EACH TAB PO PRN ×4 (00:24→18:11)
[2021-04-07] MEDS: KETOROLAC 30 MG/ML 1 ML VIAL IVP PRN ×4 (03:57→21:43)
[2021-04-07 05:54] LABS: African American GFR (CKD) >90 (>60 ml/min/1.73 sqM); Non-African American GFR(CKD) >90 (>60 ml/min/1.73 sqM)
[2021-04-07] MEDS: FAMOTIDINE 20 MG TAB PO SCH ×2 (07:05→21:43)
[2021-04-07] MEDS: metroNIDAZOLE 500 MG TAB PO SCH ×3 (07:06→21:43)
[2021-04-07] MEDS: SODIUM CHLORIDE 0.9% 1,000 ML IV SCH ×2 (07:06→08:56)
[2021-04-07] MEDS: NICOTINE 21MG/24HR PATCH TRANSDERM SCH (07:06)
[2021-04-07] MEDS: CIPROFLOXACIN-DEXAMETH 0.3-0.1% DROPS 7.5 ML BTL LEFT EAR SCH ×3 (07:08→21:49)
[2021-04-07] MEDS: HEPARIN SODIUM,PORCINE/PF 5,000 UNIT/0.5 ML SYRINGE SQ SCH ×2 (08:57→21:48)
[2021-04-07] MEDS: VANCOMYCIN 1,500 MG in SODIUM CHLORIDE 0.9% 250 ML IVPB SCH (09:59)
[2021-04-07] MEDS ORDERED: SODIUM CHLORIDE 0.65% NASAL SPRAY 44 ML BTL NASAL PRN (14:15)
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
[2021-04-07] MEDS: VANCOMYCIN 1,250 MG in SODIUM CHLORIDE 0.9% 250 ML IVPB SCH (17:22)
--- NOTE | 2021-04-07 22:54 | P.PN ---
Subjective Progress Note Date: 04/06/21 Principal diagnosis: Left otitis media and mastoiditis Patient is 35-year-old male with a past medical history significant for recurrent left ear infection has been going on for more than 6 months and has been treated with multiple courses of antibiotic admitted to the hospital with worsening left ear pain with a CT done at [facility] suspicious for mastoiditis. On today's evaluation of this to 04/06/2021, the patient remains to be afebrile, patient pain to the left Ear has decreased in intensity, patient denies further drainage from the left ear, patient is breathing comfortably on room air and denies chest pain no shortness of breath or cough no abdominal pain no diarrhea Objective - Vital Signs Vital signs: Vital Signs Temp 98.1 F 04/06/21 19:05 Pulse 64 04/06/21 19:05 Resp 17 04/06/21 19:05 BP 152/89 04/06/21 19:05 Pulse Ox 96 04/06/21 19:05 Intake & Output 04/06/21 04/06/21 04/07/21 06:59 18:59 06:59 Intake Total 480 236 Output Total 350 Balance 130 236 Intake: Oral 480 236 Output: Urine 350 Other: Voiding Method Toilet # Voids 1 2 2 # Bowel Movements 0 - Exam General description is an middle-aged male lying in bed in no distress. HEENT: Left ear with no swelling redness or drainage Respiratory system:Unlabored breathing, decreased intensity in breath sounds. No wheeze. Heart S1, S2. Regular rate and rhythm. Abdomen soft, no tenderness. - Labs CBC & Chem 7: 04/04/21 05:57 04/07/21 04:56 Assessment and Plan (1) COVID-19 Current Visit: Yes Status: Acute Code(s): U07.1 - COVID-19 SNOMED Code(s): 290730768 (2) Mastoiditis of left side Current Visit: Yes Status: Acute Code(s): H70.92 - UNSPECIFIED MASTOIDITIS, LEFT EAR SNOMED Code(s): 2100045876370238 Plan: 1-patient with recurrent left otitis media and concern for acute mastoiditis confirmed by ENT evaluation cultures confirmed as MRSA and anaerobic gram- positive, patient is currently covered with vancomycin and Flagyl waiting for PICC line placed. And plan is for 4 weeks of IV vancomycin pharmacy to dose 2-positive covid test patient did not have any respiratory symptoms, afebrile and no hypoxemia treatment is supportive Time with Patient: Less than 30
--- NOTE | 2021-04-07 22:57 | P.PN ---
Subjective Progress Note Date: 04/07/21 Principal diagnosis: Left otitis media and mastoiditis Patient is 35-year-old male with a past medical history significant for recurrent left ear infection has been going on for more than 6 months and has been treated with multiple courses of antibiotic admitted to the hospital with worsening left ear pain with a CT done at [facility] suspicious for mastoiditis. On today's evaluation of this to 04/07/2021, the patient continues to be afebrile, patient is feeling better and the patient pain to the left Ear has decreased in intensity, patient denies further drainage from the left ear, patient is breathing comfortably on room air and denies chest pain no shortness of breath or cough no abdominal pain no diarrhea Objective - Vital Signs Vital signs: Vital Signs Temp 98.2 F 04/07/21 19:00 Pulse 77 04/07/21 19:00 Resp 17 04/07/21 19:00 BP 145/88 04/07/21 19:00 Pulse Ox 98 04/07/21 19:00 Intake & Output 04/07/21 04/07/21 04/08/21 06:59 18:59 06:59 Other: Voiding Method Toilet Toilet # Voids 2 3 - Exam General description is an middle-aged male lying in bed in no distress. HEENT: Left ear with no swelling redness or drainage Respiratory system:Unlabored breathing, decreased intensity in breath sounds. No wheeze. Heart S1, S2. Regular rate and rhythm. Abdomen soft, no tenderness. - Labs CBC & Chem 7: 04/04/21 05:57 04/07/21 04:56 Assessment and Plan (1) COVID-19 Current Visit: Yes Status: Acute Code(s): U07.1 - COVID-19 SNOMED Code(s): 067928069 (2) Mastoiditis of left side Current Visit: Yes Status: Acute Code(s): H70.92 - UNSPECIFIED MASTOIDITIS, LEFT EAR SNOMED Code(s): 6426763476098961 Plan: 1-patient with recurrent left otitis media and concern for acute mastoiditis confirmed by ENT evaluation cultures confirmed as MRSA and anaerobic gram- positive, patient is currently covered with vancomycin and Flagyl waiting for PICC line placed. And plan is for 4 weeks of IV vancomycin pharmacy to dose 2-positive covid test patient did not have any respiratory symptoms, afebrile and no hypoxemia repea Covid Testing is negative can be taken off the droplet isolation Time with Patient: Less than 30
[2021-04-08] MEDS: HYDROcodone/APAP 5-325MG 1 EACH TAB PO PRN ×2 (01:25→07:02)
[2021-04-08] MEDS: VANCOMYCIN 1,250 MG in SODIUM CHLORIDE 0.9% 250 ML IVPB SCH ×2 (01:27→10:29)
[2021-04-08 04:12] VITALS: RESP 18
[2021-04-08] MEDS: KETOROLAC 30 MG/ML 1 ML VIAL IVP PRN ×2 (04:27→10:28)
[2021-04-08] MEDS: traMADol 50 MG TAB PO PRN ×2 (04:28→10:28)
[2021-04-08 06:05] LABS: African American GFR (CKD) >90 (>60 ml/min/1.73 sqM); Non-African American GFR(CKD) >90 (>60 ml/min/1.73 sqM)
[2021-04-08] MEDS: CIPROFLOXACIN-DEXAMETH 0.3-0.1% DROPS 7.5 ML BTL LEFT EAR SCH (08:44)
[2021-04-08] MEDS: metroNIDAZOLE 500 MG TAB PO SCH (08:45)
[2021-04-08] MEDS: HEPARIN SODIUM,PORCINE/PF 5,000 UNIT/0.5 ML SYRINGE SQ SCH (08:45)
[2021-04-08] MEDS: FAMOTIDINE 20 MG TAB PO SCH (08:45)
[2021-04-08] MEDS: NICOTINE 21MG/24HR PATCH TRANSDERM SCH (08:45)
[2021-04-08 10:46] VITALS: BP 131/74; PULSE 91; TEMP 98
[2021-04-08] MEDS ORDERED: LIDOCAINE 1% INJ 10MG/ML (20 ML MDV) ONE (12:25)
[2021-04-08] MEDS ORDERED: LIDOCAINE 1% INJ 10MG/ML (20 ML MDV) SQ ONE (12:30)
--- NOTE | 2021-04-08 12:50 | IR ---
PICC LINE PLACEMENT: HISTORY: Infection requiring long-term antibiotic therapy PROCEDURE: Ultrasound and fluoroscopic guidance of PICC line placement. COMPLICATIONS: None ANESTHESIA: 1. 1% Lidocaine locally. FINDINGS/TECHNIQUE: The procedure was explained to the patient. The risks, complications, benefits and alternatives were discussed and any questions were answered. Informed consent was obtained. The patient was placed supine on the fluoroscopic table and prepped and draped in the usual sterile fash ion. Utilizing a 21 gauge needle and sonographic and fluoroscopic guidance, access in the left basi lic vein was achieved and there is placement of a 0.018 guidewire. The vein is patent. A 4-F sheath was placed over the guidewire. The guidewire and dilator were removed and a 4-F. PICC line was plac ed through the sheath with the tip at the level of the SVC. The sheath was removed, the catheter was flushed and sutured into position. The patient was stable throughout the procedure and remained sta ble upon discharge from the Department of Radiology. The vein puncture was patent under ultrasound. A schneider scale image was obtained to document patency of the vein punctured. All elements of the maximal barrier technique were utilized. FLUOROSCOPY TIME: 0.1 minute and one image submitted IMPRESSION: Successful PICC line placement under ultrasound and fluoroscopic guidance.
[2021-04-08] MEDS ORDERED: VANCOMYCIN TROUGH DUE 1 EACH MISC MISCELLANE ONE (17:00)
--- NOTE | 2021-04-09 09:50 | P.DS ---
Providers Date of admission: 04/01/21 18:10 Expected date of discharge: 04/08/21 Attending physician: Florentin Randolph Consults: 04/01/21 18:10 Consult Physician Urgent Consulting Provider: Jerald Pelaez Consult Reason/Comments: acute/chronic mastoiditis Do you want consulting provider notified?: Yes 04/02/21 06:46 Consult Physician Urgent Consulting Provider: Serenity Anderson Consult Reason/Comments: Mastoiditis, otitis Do you want consulting provider notified?: Yes Primary care physician: Stated None Hospital Course: Final diagnosis Acute mastoiditis and otitis externa of the left ear Possible otitis media of left ear Covid 19 infection without pneumonia or hypoxia, now with negative rapid test, asymptomatic on room air. Recent History of ruptured tympanic eardrum of the left Substance abuse with marijuana Past medical history of heroin abuse DVT prophylaxis: Sub q heparin GI prophylaxis: pepcid Full code Discharge disposition Patient is being discharged in a stable condition with guarded prognosis to home. Patient will follow-up with Dr. Stanley in the outpatient setting upon discharge. Patient is to follow-up with infectious disease Dr. Anderson as scheduled. Patient will continue on IV vancomycin along with oral Flagyl 500 mg 3 times a day as well as Ciprodex otic drops and encouraged to follow-up with ENT scheduled appointment in [place]. Patient will have home care for IV and biotic therapy. Total time taken is greater than 35 minutes. Hospital course This is a 35-year-old male who was recently admitted with increased left jaw pain and left ear infection and was recently seen at [facility] and sent here for further evaluation and ENT consult. Patient culture showing presumptive MRSA and was maintained on vancomycin and will also continue on IV antibiotics and has received a PICC line and close outpatient follow-up with Dr. Anderson. Patient also continue on oral Flagyl 3 times a day for the next 6 weeks. Patient is being arranged for home care to help manage IV antibiotic therapy. Patient was seen by ENT Dr. Pelaez here and a wick was placed which has fallen out and placed on Ciprodex drops and has an appointment at an ENT office in [place] and encouraged to keep this appointment. Patient encouraged to follow-up with primary care provider and discuss possible pain management in the outpatient setting. Recommend repeat labs weekly to monitor Vanco and kidney functions closely. She also encouraged to continue a soft diet as eating a regular diet has caused increased irritation and further pain to the left side of the face and ear. Currently no reports of chest pain, shortness of breath, or palpitations. Patient is afebrile. No reports of nausea or vomiting and patient is tolerating diet. Patient will be discharged home today. PHYSICAL EXAMINATION: GENERAL: The patient is alert and oriented x3, not in any acute distress. Well developed, well nourished. HEENT: Pupils are round and equally reacting to light. EOMI. No scleral icterus. No conjunctival pallor. Normocephalic, atraumatic. No pharyngeal erythema. No thyromegaly. left side facial pain and mild swelling on exam, the swelling improved of the left side of the face, left ear with packing noted. small mobile soft lump below left ear palpated. CARDIOVASCULAR: S1 and S2 present. No murmurs, rubs, or gallops. PULMONARY: Chest is clear to auscultation, no wheezing or crackles. ABDOMEN: Soft, nontender, nondistended, normoactive bowel sounds. No palpable organomegaly. MUSCULOSKELETAL: No joint swelling or deformity. EXTREMITIES: No cyanosis, clubbing, or pedal edema. NEUROLOGICAL: Gross neurological examination did not reveal any focal deficits. SKIN: No rashes. Please refer to medication reconciliation sheet for a list of medications. Patient Condition at Discharge: Stable Plan - Discharge Summary Discharge Rx Participant: No New Discharge Prescriptions: New metroNIDAZOLE [Flagyl] 500 mg PO TID 30 Days #90 tab Nicotine 21Mg/24Hr Patch [Habitrol] 1 patch TRANSDERM DAILY #30 patch Ciprofloxacin-Dexameth [Ciprodex Otic Susp] 4 drops LEFT EAR TID #1 each Acetaminophen Tab [Tylenol] 650 mg PO Q6HR PRN tab PRN Reason: Mild Pain Or Fever > 100.5 HYDROcodone/APAP 5-325MG [[place] 5-325] 1 each PO Q6HR PRN #12 tab PRN Reason: Pain Famotidine [Pepcid] 20 mg PO BID 30 Days #60 tab traMADol HCl [Ultram] 50 mg PO QID PRN #9 tab PRN Reason: Pain Continue Ciprofloxacin-Dexameth [Ciprodex Otic Susp] 4 drops LEFT EAR BID Changed Ibuprofen [Motrin Ib] 600 mg PO Q4H PRN #0 PRN Reason: Pain Discharge Medication List Ciprofloxacin-Dexameth [Ciprodex Otic Susp] 4 drops LEFT EAR BID 04/01/21 [History] Acetaminophen Tab [Tylenol] 650 mg PO Q6HR PRN tab 04/05/21 [Rx] Ciprofloxacin-Dexameth [Ciprodex Otic Susp] 4 drops LEFT EAR TID #1 each 04/05/21 [Rx] Ibuprofen [Motrin Ib] 600 mg PO Q4H PRN #0 04/05/21 [Rx] Famotidine [Pepcid] 20 mg PO BID 30 Days #60 tab 04/08/21 [Rx] HYDROcodone/APAP 5-325MG [[place] 5-325] 1 each PO Q6HR PRN #12 tab 04/08/21 [Rx] Nicotine 21Mg/24Hr Patch [Habitrol] 1 patch TRANSDERM DAILY #30 patch 04/08/21 [Rx] metroNIDAZOLE [Flagyl] 500 mg PO TID 30 Days #90 tab 04/08/21 [Rx] traMADol HCl [Ultram] 50 mg PO QID PRN #9 tab 04/08/21 [Rx] Follow up Appointment(s)/Referral(s): Colleen Stanley MD [REFERRING] - 1 Week (patient to call and schedule appointme nt after D/C) [facility], [NON-STAFF] - As Needed [facility], [REFERRING] - As Needed Serenity Anderson MD [STAFF PHYSICIAN] - 04/15/21 1:15 pm Ambulatory/Diagnostic Orders: Complete Blood Count w/diff [LAB.AMB] Time Frame: 1 Week, Location: None Selected Patient Instructions/Handouts: Mastoiditis (DC) Activity/Diet/Wound Care/Special Instructions: Patient has follow up with ENT specialist in [facility] at the end of Apr, keep this appointment Activity Limited until follow-up Follow-up with primary care provider on discharge Continue with antibiotics per ID and recommendations Follow-up with Dr. Anderson in 1-2 weeks in his clinic Repeat labs weekly for close Vanco monitoring Continue with soft foods until cleared by ENT and primary Avoid any illicit drug use Take medications as prescribed Avoid anything in the left ear Discharge Disposition: HOME WITH HOME HEALTH SERVICES
== END 2021-04-08 13:55 | disposition home health service (06) | DRG 152 ==
LOC: EC 15:13 → 4SSUR 18:10
PROVIDERS: ADMIT Internal Medicine; ATTEND Internal Medicine
PROC: 02HV33Z Insertion of Infusion Device into Superior Vena Cava, Percutaneous Approach (ICD-10-PCS; principal; 2021-04-08 07:30)
DX: H70.002 Acute mastoiditis without complications, left ear (principal); U07.1 COVID-19; H70.12 Chronic mastoiditis, left ear; F12.10 Cannabis abuse, uncomplicated; F17.210 Nicotine dependence, cigarettes, uncomplicated; F31.9 Bipolar disorder, unspecified; F41.9 Anxiety disorder, unspecified; H60.92 Unspecified otitis externa, left ear; H66.92 Otitis media, unspecified, left ear; H72.92 Unspecified perforation of tympanic membrane, left ear; Z79.2 Long term (current) use of antibiotics; F11.11 Opioid abuse, in remission; Z82.0 Family history of epilepsy and other diseases of the nervous system; Z83.3 Family history of diabetes mellitus; Z86.14 Personal history of Methicillin resistant Staphylococcus aureus infection; Z88.0 Allergy status to penicillin; Z88.2 Allergy status to sulfonamides; Z98.890 Other specified postprocedural states
CPT/HCPCS: 36573; 70450; 71046; 80048; 80202; 82565; 84145; 85025; 85652; 86140; 87070; 87075; 87077; 87186; 87205; 87635; 96374; 99285

== ENCOUNTER 2021-04-09 15:31 | Observation (INO) | payer OTHER ==
[2021-04-09] MEDS ORDERED: methylPREDNISolone SOD SUCCI 125 MG/2 ML VIAL IV STA (17:13)
[2021-04-09] MEDS ORDERED: diphenhydrAMINE 50 MG/ML 1 ML VIAL IVP STA (17:13)
[2021-04-09 17:35] LABS: HCT 48.5 % (39.0-53.0); HGB 15.9 gm/dL (13.0-17.5); MCH 30.1 pg (25.0-35.0); MCHC 32.7 g/dL (31.0-37.0); MCV 92.1 fL (80.0-100.0); Mean Platelet Volume 7.9; Platelet Count 179 k/uL (150-450); RBC 5.27 m/uL (4.30-5.90); RDW 12.8 % (11.5-15.5); WBC 5.3 k/uL (3.8-10.6)
[2021-04-09 17:46] LABS: ALT 46 U/L (4-49); AST 47 U/L (17-59); African American GFR (CKD) >90 (>60 ml/min/1.73 sqM); Albumin 4.8 g/dL (3.5-5.0); Alkaline Phosphatase 63 U/L (38-126); Anion Gap 7 mmol/L; Blood Urea Nitrogen 11 mg/dL (9-20); Calcium 9.6 mg/dL (8.4-10.2); Carbon Dioxide 27 mmol/L (22-30); Chloride 105 mmol/L (98-107); Glucose 89 mg/dL (74-99); Non-African American GFR(CKD) >90 (>60 ml/min/1.73 sqM); Potassium 4.3 mmol/L (3.5-5.1); Sodium 139 mmol/L (137-145); Total Bilirubin 0.5 mg/dL (0.2-1.3); Total Protein 8.1 g/dL (6.3-8.2)
--- NOTE | 2021-04-09 17:53 | ED ---
General Adult HPI - General Chief complaint: Chest Pain Stated complaint: rash, chest pressure Source: patient Mode of arrival: ambulatory Limitations: no limitations - History of Present Illness Initial comments: 35-year-old male presented to the emergency department last week for left ear pain. He was found to have mastoiditis. Patient reports that he was just discharged from the hospital yesterday on vancomycin after a PICC line was placed. He did receive his infusion last night around 7:00. Reports that his home care nurse came to the house around 9:00 this morning and started his second infusion. He is getting vancomycin daily. He finished his infusion and then went to work. He noted that he had a rash on his chest when arriving at work. He began having a burning sensation to the area which extended up into his jaw. He then inspected his gutierres and noted that he had a bunch of vesicular lesions in his gutierres. Did not identify this rash while he was hospitalized receiving Vanco. Denies previous ALLERGY to vancomycin. He admits to mild associated chest discomfort and shortness of breath. No oral swelling. Did not take any medications for his symptoms however presented to the emergency department for evaluation. No other alleviating, precipitating or modifying factors - Related Data Home Medications Medication Instructions Recorded Confirmed HYDROcodone/APAP 5-325MG [[place] 1 tab PO Q6HR PRN 04/09/21 04/09/21 5-325] Nicotine 21Mg/24Hr Patch [Habitrol] 1 patch TRANSDERM DAILY PRN 04/09/21 04/09/21 Previous Rx's Medication Instructions Recorded Acetaminophen Tab [Tylenol] 650 mg PO Q6HR PRN tab 04/05/21 Ciprofloxacin-Dexameth [Ciprodex 4 drops LEFT EAR TID #1 each 04/05/21 Otic Susp] Ibuprofen [Motrin Ib] 600 mg PO Q4H PRN #0 04/05/21 Famotidine [Pepcid] 20 mg PO BID 30 Days #60 tab 04/08/21 metroNIDAZOLE [Flagyl] 500 mg PO TID 30 Days #90 tab 04/08/21 traMADol HCl [Ultram] 50 mg PO QID PRN #9 tab 04/08/21 Allergies Allergy/AdvReac Type Severity Reaction Status Date / Time Penicillins Allergy Rash/Hives Verified 04/09/21 18:52 sulfamethoxazole Allergy Rash/Hives Verified 04/09/21 18:52 [From Bactrim] trimethoprim [From Bactrim] Allergy Rash/Hives Verified 04/09/21 18:52 Review of Systems ROS Statement: Those systems with pertinent positive or pertinent negative responses have been documented in the HPI. ROS Other: All systems not noted in ROS Statement are negative. Past Medical History Past Medical History: No Reported History Additional Past Medical History / Comment(s): Covid positive 04/01/21, L tympanic membrane perforation 6-7 months ago/treated with antibiotics past several months, 2014 jaw fracture/surgeries. History of Any Multi-Drug Resistant Organisms: None Reported, MRSA Date of last positivie culture/infection: 04/02/21 MDRO Source:: MRSA EAR Past Surgical History: Hernia Repair Additional Past Surgical History / Comment(s): jaw fracture repositioned then ended up wired 05/04/14, inguinal hernia repair/pt cannot recall laterallity. Past Anesthesia/Blood Transfusion Reactions: No Reported Reaction Past Psychological History: Anxiety, Bipolar, Depression Smoking Status: Current some day smoker Past Alcohol Use History: None Reported - Past Family History Mother Additional Family Medical History / Comment(s): Mother is . Pt does not know her medical history. Father Family Medical History: Diabetes Mellitus, Neurologic Disorder Additional Family Medical History / Comment(s): Parkinson's disease General Exam Limitations: no limitations Course Vital Signs 04/09/21 04/09/21 04/09/21 16:10 17:53 19:30 Temperature 97.5 F L Pulse Rate 88 84 91 Respiratory 16 20 20 Rate Blood Pressure 153/107 153/94 144/78 O2 Sat by Pulse 100 100 98 Oximetry EKG Findings - EKG Comments: EKG Findings:: EKG demonstrates sinus rhythm with a ventricular rate of 76. AK interval 137. QRS 99. QTC of 394. No acute ST segment elevations or depressions Medical Decision Making - Medical Decision Making Upon arrival patient was placed into room 31. Her history and physical exam is performed. I did call and speak with Dr. jasso. He does present to the emergency department and evaluates the patient. He is concerned for drug reaction. Vancomycin is discontinued. Patient given Benadryl 25 mg and Solu- Medrol [address] Marquez recommendations. He does recommend that the patient be started on daptomycin 6 mg daily. We did fax the information over to [facility]. They will likely be able to arrange the patient's medications for the morning however need insurance approval. Because of this the patient will be admitted to the hospital overnight pending approval. Patient agreed to the plan and is awaiting a bed on the floor - Lab Data Result diagrams: 04/09/21 17:19 04/09/21 17:19 Lab Results 04/09/21 04/09/21 04/09/21 Range/Units 17:19 17:19 17:19 WBC 5.3 (3.8-10.6) k/uL RBC 5.27 (4.30-5.90) m/uL Hgb 15.9 (13.0-17.5) gm/dL Hct 48.5 (39.0-53.0) % MCV 92.1 (80.0-100.0) fL MCH 30.1 (25.0-35.0) pg MCHC 32.7 (31.0-37.0) g/dL RDW 12.8 (11.5-15.5) % Plt Count 179 (150-450) k/uL MPV 7.9 Neutrophils % (Manual) 56 % Lymphocytes % (Manual) 24 % Monocytes % (Manual) 18 % Eosinophils % (Manual) 2 % Neutrophils # (Manual) 2.97 (1.3-7.7) k/uL Lymphocytes # (Manual) 1.27 (1.0-4.8) k/uL Monocytes # (Manual) 0.95 (0-1.0) k/uL Eosinophils # (Manual) 0.11 (0-0.7) k/uL Nucleated RBCs 0 (0-0) /100 WBC Manual Slide Review Performed RBC Morphology Normal Sodium 139 (137-145) mmol/L Potassium 4.3 (3.5-5.1) mmol/L Chloride 105 (98-107) mmol/L Carbon Dioxide 27 (22-30) mmol/L Anion Gap 7 mmol/L BUN 11 (9-20) mg/dL Creatinine 0.89 (0.66-1.25) mg/dL Est GFR (CKD-EPI)AfAm >90 (>60 ml/min/1.73 sqM) Est GFR (CKD-EPI)NonAf >90 (>60 ml/min/1.73 sqM) Glucose 89 (74-99) mg/dL Calcium 9.6 (8.4-10.2) mg/dL Total Bilirubin 0.5 (0.2-1.3) mg/dL AST 47 (17-59) U/L ALT 46 (4-49) U/L Alkaline Phosphatase 63 (38-126) U/L Troponin I <0.012 (0.000-0.034) ng/mL Total Protein 8.1 (6.3-8.2) g/dL Albumin 4.8 (3.5-5.0) g/dL Disposition Clinical Impression: Mastoiditis of left side, COVID-19, Drug reaction Disposition: ADMITTED IP TO [facility] Condition: Stable Is patient prescribed a controlled substance at d/c from ED?: No Decision to Admit Reason: Admit from EC Decision Date: 04/09/21 Decision Time: 18:58
--- NOTE | 2021-04-09 18:07 | XR ---
EXAMINATION TYPE: XR chest 2V DATE OF EXAM: 04/09/2021 COMPARISON: Chest x-ray 1 week ago. HISTORY: Cough and pain. TECHNIQUE: Frontal and lateral views of the chest are obtained. FINDINGS: There is no suspicious focal air space opacity, pleural effusion, or pneumothorax seen. T he cardiac silhouette size remains within normal limits. The osseous structures are intact. IMPRESSION: No acute process. No significant change from prior.
[2021-04-09 18:42] LABS: Eosinophils # (M) 0.11 k/uL (0-0.7); Lymphocytes # (M) 1.27 k/uL (1.0-4.8); Monocytes # (M) 0.95 k/uL (0-1.0); Neutrophils # (M) 2.97 k/uL (1.3-7.7); Neutrophils % (M) 56 %; Nucleated Red Blood Cells 0 /100 WBC (0-0); RBC Morphology Normal; Total Cells Counted 100
[2021-04-09] MEDS ORDERED: NALOXONE 0.4 MG/ML 1 ML VIAL IV PRN (18:58)
[2021-04-09] MEDS ORDERED: HYDROmorphone 1 MG/ML 1 ML SYRINGE IVP STA (19:00)
[2021-04-09] MEDS ORDERED: ACETAMINOPHEN TAB 325 MG TAB PO PRN (19:06)
[2021-04-09] MEDS ORDERED: traMADol 50 MG TAB PO PRN (19:06)
[2021-04-09] MEDS ORDERED: IBUPROFEN 600 MG TAB PO PRN (19:06)
[2021-04-09] MEDS ORDERED: NICOTINE 21MG/24HR PATCH TRANSDERM PRN (19:06)
[2021-04-09] MEDS: metroNIDAZOLE 500 MG TAB PO SCH (22:14)
[2021-04-09] MEDS: FAMOTIDINE 20 MG TAB PO SCH (22:14)
[2021-04-09] MEDS: CIPROFLOXACIN-DEXAMETH 0.3-0.1% DROPS 7.5 ML BTL LEFT EAR SCH (22:48)
--- NOTE | 2021-04-09 23:20 | P.CONS ---
History of Present Illness - Reason for Consult Consult date: 04/09/21 drug rash and mastoiditis Requesting physician: Milvia Perez - Chief Complaint rash around head and neck x 1 day - History of Present Illness History of present illness : Patient is 35-year male with a past medical history significant for recurrent left ear infection in this patient who was recently diagnosed with a left otitis media and mastoiditis cultures were positive for MRSA and anaerobes patient will get a PICC line and was advised a total of 6-week course of IV vancomycin the patient was receiving the hospital for almost 10 days before he was discharged yesterday patient mentioned he did get his dose of vancomycin last night this morning when he woke up started having more rash around the gutierres with associated itching and also developed a rash on the anterior chest area patient mention he did call his home care nurse who advised him to go to the hospital patient was evaluated by the ER physician has been diagnosed with a drug rash possibly related to the vancomycin which was discontinued Case was discussed with you by the ER physician and the patient was switched over to daptomycin he also received some steroids patient currently denies having any shortness of breath and no mucous membrane lesion, patient is complaining of pain to the left ear area more of a dull aching to sharp 5-6 out of 10 no radiation denies any further drainage from the left ear Review of system: CONSTITUTIONAL: Positive for weakness denies fever. EYES: No complaint. ENT: As per history of present illness. RESPIRATORY: No complaint. CARDIOVASCULAR: No complaint. GENITOURINARY: No complaint. GASTROINTESTINAL: No complaint. MUSCULOSKELETAL: No complaint. INTEGUMENTARY: As per history of present illness. PSYCHOLOGIC: No complaint. ENDOCRINE: No complaint. NEUROLOGIC: No complaint. Past medical history : Reviewed, documented below Past surgical history : Reviewed, documented below Social history: Reviewed, documented below Medications: Reviewed, as documented below EXAMINATION: Vital sigans= Reviewed and documented below GENERAL DESCRIPTION: Middle-aged male lying in bed, no distress. No tachypnea or accessory muscle of respiration use. HEENT: Shows Pallor , no scleral icterus. Oral mucous membrane is dry. NECK: Trachea central, no thyromegaly. LUNGS: Unlabored breathing. Clear to auscultation anteriorly. No wheeze or crackle. HEART: S1, S2, regular rate and rhythm. ABDOMEN: Soft, no tenderness , guarding or rigidity EXTREMITIES: No edema of feet. SKIN: Maculopapular rash around the gutierres line symmetrical rash on anterior ch est area. NEUROLOGICAL: The patient is awake, alert, oriented x3, mood and affect normal. LABS AND RADIOLOGY: Reviewed results see below Assessment : 1patient presented to hospital with a rash around the head and neck and upper chest area with concern for possible related to the vancomycin which has been discontinued no evidence of anaphylaxis clinically. 2patient with the left otitis media secondary to MRSA Plan: 1-daptomycin 6 mg/kg daily prescription has been provided to the case finisher to arrange for outpatient antibiotic for discharge 2-Flagyl 500 mg p.o. every 8 hours 3-short course of steroid for his underlying rash We will follow on clinical condition and cultures to further adjust medication if needed Thank you for this consultation we will follow the patient along with you Past Medical History Past Medical History: No Reported History Additional Past Medical History / Comment(s): Covid positive 04/01/21, L tympanic membrane perforation 6-7 months ago/treated with antibiotics past several months, 2014 jaw fracture/surgeries. History of Any Multi-Drug Resistant Organisms: None Reported, MRSA Year Discovered:: 04/02/21 MDRO Source:: MRSA EAR Past Surgical History: Hernia Repair Additional Past Surgical History / Comment(s): jaw fracture repositioned then ended up wired 05/04/14, inguinal hernia repair/pt cannot recall laterallity. Past Anesthesia/Blood Transfusion Reactions: No Reported Reaction Past Psychological History: Anxiety, Bipolar, Depression Smoking Status: Current some day smoker Past Alcohol Use History: None Reported - Past Family History Mother Additional Family Medical History / Comment(s): Mother is . Pt does not know her medical history. Father Family Medical History: Diabetes Mellitus, Neurologic Disorder Additional Family Medical History / Comment(s): Parkinson's disease Medications and Allergies Home Medications Medication Instructions Recorded Confirmed Type Acetaminophen Tab [Tylenol] 650 mg PO Q6HR PRN tab 04/05/21 04/09/21 Rx Ciprofloxacin-Dexameth [Ciprodex 4 drops LEFT EAR TID #1 each 04/05/21 04/09/21 Rx Otic Susp] Ibuprofen [Motrin Ib] 600 mg PO Q4H PRN #0 04/05/21 04/09/21 Rx Famotidine [Pepcid] 20 mg PO BID 30 Days #60 tab 04/08/21 04/09/21 Rx metroNIDAZOLE [Flagyl] 500 mg PO TID 30 Days #90 tab 04/08/21 04/09/21 Rx traMADol HCl [Ultram] 50 mg PO QID PRN #9 tab 04/08/21 04/09/21 Rx HYDROcodone/APAP 5-325MG [[place] 1 tab PO Q6HR PRN 04/09/21 04/09/21 History 5-325] Nicotine 21Mg/24Hr Patch [Habitrol] 1 patch TRANSDERM DAILY PRN 04/09/21 04/09/21 History Allergies Allergy/AdvReac Type Severity Reaction Status Date / Time Penicillins Allergy Rash/Hives Verified 04/09/21 18:52 sulfamethoxazole Allergy Rash/Hives Verified 04/09/21 18:52 [From Bactrim] trimethoprim [From Bactrim] Allergy Rash/Hives Verified 04/09/21 18:52 Physical Exam Vitals: Vital Signs Temp Pulse Resp BP Pulse Ox 04/09/21 19:30 91 20 144/78 98 04/09/21 17:53 84 20 153/94 100 04/09/21 16:10 97.5 F L 88 16 153/107 100 Intake and Output 04/09/21 04/09/21 04/10/21 14:59 22:59 06:59 Other: Weight 68.039 kg Results CBC & Chem 7: 04/09/21 17:19 04/09/21 17:19
[2021-04-10] MEDS ORDERED: MORPHINE SULFATE 4 MG/ML SYRINGE IVP STA (00:20)
[2021-04-10] MEDS: HYDROcodone/APAP 5-325MG 1 EACH TAB PO PRN ×2 (03:17→09:46)
[2021-04-10 07:51] VITALS: BP 136/92; PULSE 83; RESP 18; TEMP 98.2
[2021-04-10] MEDS: FAMOTIDINE 20 MG TAB PO SCH (09:46)
[2021-04-10] MEDS: CIPROFLOXACIN-DEXAMETH 0.3-0.1% DROPS 7.5 ML BTL LEFT EAR SCH (09:47)
[2021-04-10] MEDS: metroNIDAZOLE 500 MG TAB PO SCH (09:47)
[2021-04-10 10:14] LABS: HCT 46.8 % (39.6-50.0); HGB 15.1 g/dL (13.0-17.0); MCH 29.2 pg (27.0-32.0); MCHC 32.3 g/dL (32.0-37.0); MCV 90.3 fL (80.0-97.0); Mean Platelet Volume 11.1 fL (9.5-12.2); NRBC Per 100 WBC 0 /100 WBCS (0.0-0.0); Platelet Count 198 X 10*3/uL (140-440); RBC 5.18 X 10*6/uL (4.40-5.60); RDW 12.2 % (11.5-14.5); WBC 4.83 X 10*3/uL (4.50-10.00)
[2021-04-10 10:22] LABS: African American GFR (CKD) 128.7 (60.0-200.0); Anion Gap 12.4 mmol/L (10.00-18.00); BUN/Creat Ratio 14.62 Ratio (12.00-20.00); Blood Urea Nitrogen 12.5 mg/dL (9.0-27.0); Calcium 9.3 mg/dL (8.7-10.3); Carbon Dioxide 20.5 mmol/L (20.0-27.5); Potassium 5.1 mmol/L (3.5-5.5)
[2021-04-10 10:53] LABS: Basophils # (A) 0.03 X 10*3/uL (0.00-0.10); Basophils % (A) 0.6 %; Eosinophils # (A) 0.01 X 10*3/uL (0.04-0.35); Eosinophils % (A) 0.2 %; Immature Grans, Automated 0.4 %; Lymphocytes # (A) 1.32 X 10*3/uL (0.90-5.00); Lymphocytes % (A) 27.3 %; Monocytes # (A) 0.31 X 10*3/uL (0.20-1.00); Monocytes % (A) 6.4 %; Neutrophils # (A) 3.14 X 10*3/uL (1.80-7.70); Neutrophils % (A) 65.1 %
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
--- NOTE | 2021-04-10 12:40 | P.DS ---
Providers Date of admission: 04/09/21 18:58 Expected date of discharge: 04/10/21 Attending physician: Rolly Reynoso Consults: 04/09/21 18:59 Consult Physician Urgent Consulting Provider: Serenity Anderson Consult Reason/Comments: acute drug reaction Do you want consulting provider notified?: Already Contacted Primary care physician: Stated None Hospital Course: Final diagnosis Left-sided facial and upper chest wall rash, possible ALLERGIC reaction to vancomycin no evidence of anaphylaxis Left otitis externa and media with concern for possible mastoiditis Continued ongoing nicotine dependence Left otitis media 2 with failed outpatient therapy Ruptured left tympanic membrane History of heroin abuse THC use DVT prophylaxis GI prophylaxis Full code Discharge disposition Patient is being discharged in a stable condition with guarded prognosis to home. Patient will follow-up with Dr. Stanley in the outpatient setting upon discharge. Patient is to continue with IV daptomycin along with oral Flagyl and Ciprodex drops. Patient will continue with home care in the outpatient setting. Total time taken is greater than 35 minutes. Hospital course This is a 35-year-old male who was recently admitted and discharged for left otitis externa and media with possible mastoiditis and presumptive MRSA on the cultures and did receive a PICC line and had been receiving IV vancomycin along with Flagyl and Ciprodex drops in the outpatient setting. Patient started experiencing a rash on the left side of the face and neck and also the chest wall and contacted Homecare and was instructed to follow-up at the ER for further evaluation. Infectious disease evaluated the patient and medication was switched to daptomycin and vancomycin discontinued. Patient did receive a dose of Benadryl and Solu-Medrol in the ER was significant improvement. Patient denied any shortness of breath or throat swelling. IV antibiotics have been changed and arrange [facility] and patient will continue with home care in the outpatient setting. Currently no reports of chest pain, shortness of breath, or palpitations. Patient is afebrile. No reports of nausea or vomiting and patient is tolerating diet. Patient will be discharged home today. Physical exam: Gen: This is a 35-year-old male awake, alert and oriented 3, well-developed, well-nourished. HEENT: Head is atraumatic, normocephalic. Pupils equal, round. Sclerae is anicteric. Left ear packing noted with continued drainage NECK: Supple. No JVD. No lymphadenopathy. No thyromegaly. LUNGS: Clear to auscultation. No wheezes or rhonchi. No intercostal retractions. HEART: Regular rate and rhythm. No murmur. ABDOMEN: Soft. Bowel sounds are present. No masses. No tenderness. EXTREMITIES: No pedal edema. No calf tenderness. NEUROLOGICAL: Patient is awake, alert and oriented x3. Cranial nerves 2 through 12 are grossly intact. SKIN: No rashes or lesions noted Please refer to medication reconciliation sheet for a list of medications. Patient Condition at Discharge: Stable Plan - Discharge Summary New Discharge Prescriptions: Continue Ibuprofen [Motrin Ib] 600 mg PO Q4H PRN #0 PRN Reason: Pain metroNIDAZOLE [Flagyl] 500 mg PO TID 30 Days #90 tab HYDROcodone/APAP 5-325MG [[place] 5-325] 1 tab PO Q6HR PRN PRN Reason: Pain Ciprofloxacin-Dexameth [Ciprodex Otic Susp] 4 drops LEFT EAR TID #1 each Acetaminophen Tab [Tylenol] 650 mg PO Q6HR PRN tab PRN Reason: Mild Pain Or Fever > 100.5 Famotidine [Pepcid] 20 mg PO BID 30 Days #60 tab traMADol HCl [Ultram] 50 mg PO QID PRN #9 tab PRN Reason: Pain Nicotine 21Mg/24Hr Patch [Habitrol] 1 patch TRANSDERM DAILY PRN PRN Reason: Nicotine Cravings Discharge Medication List Acetaminophen Tab [Tylenol] 650 mg PO Q6HR PRN tab 04/05/21 [Rx] Ciprofloxacin-Dexameth [Ciprodex Otic Susp] 4 drops LEFT EAR TID #1 each 04/05/21 [Rx] Ibuprofen [Motrin Ib] 600 mg PO Q4H PRN #0 04/05/21 [Rx] Famotidine [Pepcid] 20 mg PO BID 30 Days #60 tab 04/08/21 [Rx] metroNIDAZOLE [Flagyl] 500 mg PO TID 30 Days #90 tab 04/08/21 [Rx] traMADol HCl [Ultram] 50 mg PO QID PRN #9 tab 04/08/21 [Rx] HYDROcodone/APAP 5-325MG [[place] 5-325] 1 tab PO Q6HR PRN 04/09/21 [History] Nicotine 21Mg/24Hr Patch [Habitrol] 1 patch TRANSDERM DAILY PRN 04/09/21 [Histo ry] Follow up Appointment(s)/Referral(s): [facility], [NON-STAFF] - 04/11/21 [facility], [REFERRING] - 04/11/21 Serenity Anderson MD [STAFF PHYSICIAN] - 1 Week Activity/Diet/Wound Care/Special Instructions: Activity Limited until follow-up Follow-up with primary care provider on discharge Follow-up with your ENT out of [place] as scheduled Follow-up with Dr. Anderson infectious disease as scheduled Continue home care and IV antibiotics along with eardrops and oral antibiotics until finished Continue soft diet Discharge Disposition: HOME WITH HOME HEALTH SERVICES
== END 2021-04-10 10:31 | disposition home health service (06) ==
LOC: EC 15:31 → 6NMEDSUR 18:58
PROVIDERS: ADMIT Hospitalist; ATTEND Hospitalist
DX: R21 Rash and other nonspecific skin eruption (principal); H66.92 Otitis media, unspecified, left ear; H60.92 Unspecified otitis externa, left ear; F17.200 Nicotine dependence, unspecified, uncomplicated; H72.92 Unspecified perforation of tympanic membrane, left ear; F11.10 Opioid abuse, uncomplicated; R07.89 Other chest pain; R06.02 Shortness of breath; F41.9 Anxiety disorder, unspecified; F31.9 Bipolar disorder, unspecified; Z86.16 Personal history of COVID-19; Z86.14 Personal history of Methicillin resistant Staphylococcus aureus infection; Z95.828 Presence of other vascular implants and grafts; Z88.0 Allergy status to penicillin; Z88.2 Allergy status to sulfonamides; Z82.0 Family history of epilepsy and other diseases of the nervous system; Z83.3 Family history of diabetes mellitus
CPT/HCPCS: 96365; 96375 ×2; 99285; 36415; 93005; 80053; 80048; 84484; 85025 ×2; 71046; G0378 ×2; J2270; J1200; J2930; J0878; J1170

== ENCOUNTER 2021-04-15 10:30 | Observation (INO) | payer OTHER ==
[2021-04-15] MEDS ORDERED: METOCLOPRAMIDE 5 MG/ML 2 ML VIAL IVP STA (10:41)
[2021-04-15] MEDS ORDERED: MORPHINE SULFATE 4 MG/ML SYRINGE IVP STA (10:41)
--- NOTE | 2021-04-15 10:43 | ED ---
General Adult HPI - General Chief complaint: Skin/Abscess/Foreign Body Stated complaint: Dizziness Time Seen by Provider: 04/15/21 10:32 Source: patient, RN/MD, RN notes reviewed Mode of arrival: EMS Limitations: no limitations - History of Present Illness Initial comments: Patient is a pleasant 35-year-old male presenting to the emergency Department wi th chief complaint of dizziness and left ear problems. Patient has been dealing with this for months patient is on IV antibiotics. PICC line as well as oral Flagyl. Patient has had intermittent antibiotics over months. Originally this started with a perforated eardrum however recently was more diagnosed with mastoiditis. Patient has had dizziness since yesterday feeling a spinning sensation. Patient has had several episodes of vomiting and still has nausea. Patient did have some bleeding from his left ear. Patient continues to have significant discomfort. - Related Data Home Medications Medication Instructions Recorded Confirmed HYDROcodone/APAP 5-325MG [[place] 1 tab PO Q6HR PRN 04/09/21 04/15/21 5-325] Nicotine 21Mg/24Hr Patch [Habitrol] 1 patch TRANSDERM DAILY PRN 04/09/21 04/15/21 Previous Rx's Medication Instructions Recorded Acetaminophen Tab [Tylenol] 650 mg PO Q6HR PRN tab 04/05/21 Ciprofloxacin-Dexameth [Ciprodex 4 drops LEFT EAR TID #1 each 04/05/21 Otic Susp] Ibuprofen [Motrin Ib] 600 mg PO Q4H PRN #0 04/05/21 Famotidine [Pepcid] 20 mg PO BID 30 Days #60 tab 04/08/21 metroNIDAZOLE [Flagyl] 500 mg PO TID 30 Days #90 tab 04/08/21 traMADol HCl [Ultram] 50 mg PO QID PRN #9 tab 04/08/21 Allergies Allergy/AdvReac Type Severity Reaction Status Date / Time Penicillins Allergy Rash/Hives Verified 04/15/21 11:28 sulfamethoxazole Allergy Rash/Hives Verified 04/15/21 11:28 [From Bactrim] trimethoprim [From Bactrim] Allergy Rash/Hives Verified 04/15/21 11:28 Review of Systems ROS Statement: Those systems with pertinent positive or pertinent negative responses have been documented in the HPI. ROS Other: All systems not noted in ROS Statement are negative. Constitutional: Denies: fever Eyes: Denies: eye pain ENT: Reports: as per HPI, ear pain Respiratory: Denies: cough Cardiovascular: Denies: chest pain Endocrine: Denies: fatigue Gastrointestinal: Denies: abdominal pain Genitourinary: Denies: dysuria Musculoskeletal: Denies: back pain Skin: Denies: rash Neurological: Reports: vertigo. Denies: weakness Past Medical History Past Medical History: No Reported History Additional Past Medical History / Comment(s): Covid positive 04/01/21, L tympanic membrane perforation 6-7 months ago/treated with antibiotics past several months, 2014 jaw fracture/surgeries. History of Any Multi-Drug Resistant Organisms: None Reported, MRSA Date of last positivie culture/infection: 04/02/21 MDRO Source:: MRSA EAR Past Surgical History: Hernia Repair Additional Past Surgical History / Comment(s): jaw fracture repositioned then ended up wired 05/04/14, inguinal hernia repair/pt cannot recall laterallity. Past Anesthesia/Blood Transfusion Reactions: No Reported Reaction Past Psychological History: Anxiety, Bipolar, Depression Smoking Status: Current some day smoker Past Alcohol Use History: None Reported Past Drug Use History: Marijuana - Past Family History Mother Additional Family Medical History / Comment(s): Mother is . Pt does not know her medical history. Father Family Medical History: Diabetes Mellitus, Neurologic Disorder Additional Family Medical History / Comment(s): Parkinson's disease General Exam Limitations: no limitations General appearance: alert, in no apparent distress Head exam: Present: atraumatic Eye exam: Present: normal appearance, PERRL, EOMI. Absent: nystagmus ENT exam: Present: normal oropharynx, other (Left TM difficult to visualize secondary to bleeding even though it appears mild. There is mild diffuse swelling left ear. Tenderness left mastoid.) Neck exam: Present: normal inspection Respiratory exam: Present: normal lung sounds bilaterally Cardiovascular Exam: Present: tachycardia GI/Abdominal exam: Present: soft. Absent: tenderness Extremities exam: Present: normal inspection Neurological exam: Present: alert, oriented X3, CN II-XII intact. Absent: motor sensory deficit Psychiatric exam: Present: normal affect, normal mood Skin exam: Present: normal color Course Vital Signs 04/15/21 10:31 Temperature 98.2 F Pulse Rate 114 H Respiratory 18 Rate Blood Pressure 140/93 O2 Sat by Pulse 99 Oximetry Medical Decision Making - Medical Decision Making Patient reevaluated and updated. Case was discussed with Dr. Randolph, who will admit patient that they did recently discharge. Infectious disease and ENT will be consulted - Lab Data Result diagrams: 04/15/21 10:42 04/15/21 10:42 Lab Results 04/15/21 04/15/21 04/15/21 Range/Units 10:42 10:42 10:42 WBC 8.3 (3.8-10.6) k/uL RBC 5.89 (4.30-5.90) m/uL Hgb 17.9 H (13.0-17.5) gm/dL Hct 52.8 (39.0-53.0) % MCV 89.5 (80.0-100.0) fL MCH 30.4 (25.0-35.0) pg MCHC 34.0 (31.0-37.0) g/dL RDW 12.7 (11.5-15.5) % Plt Count 235 (150-450) k/uL MPV 7.9 Neutrophils % 58 % Lymphocytes % 29 % Monocytes % 9 % Eosinophils % 2 % Basophils % 1 % Neutrophils # 4.8 (1.3-7.7) k/uL Lymphocytes # 2.4 (1.0-4.8) k/uL Monocytes # 0.7 (0-1.0) k/uL Eosinophils # 0.2 (0-0.7) k/uL Basophils # 0.1 (0-0.2) k/uL Sodium 136 L (137-145) mmol/L Potassium 4.3 (3.5-5.1) mmol/L Chloride 101 (98-107) mmol/L Carbon Dioxide 20 L (22-30) mmol/L Anion Gap 15 mmol/L BUN 16 (9-20) mg/dL Creatinine 0.95 (0.66-1.25) mg/dL Est GFR (CKD-EPI)AfAm >90 (>60 ml/min/1.73 sqM) Est GFR (CKD-EPI)NonAf >90 (>60 ml/min/1.73 sqM) Glucose 108 H (74-99) mg/dL Plasma Lactic Acid Jin 2.2 H* (0.7-2.0) mmol/L Calcium 10.0 (8.4-10.2) mg/dL Total Bilirubin 0.8 (0.2-1.3) mg/dL AST 23 (17-59) U/L ALT 23 (4-49) U/L Alkaline Phosphatase 70 (38-126) U/L Total Protein 8.6 H (6.3-8.2) g/dL Albumin 4.9 (3.5-5.0) g/dL - Radiology Data Radiology results: report reviewed (Computed tomography scan concerning for mastoiditis with bony erosion) Disposition Clinical Impression: Mastoiditis of left side Disposition: ADMITTED IP TO THIS [facility] Condition: Serious Is patient prescribed a controlled substance at d/c from ED?: No Referrals: None,Stated [Primary Care Provider] - 1-2 days Decision Time: 11:50
[2021-04-15 11:23] LABS: ALT 23 U/L (4-49); AST 23 U/L (17-59); African American GFR (CKD) >90 (>60 ml/min/1.73 sqM); Albumin 4.9 g/dL (3.5-5.0); Alkaline Phosphatase 70 U/L (38-126); Anion Gap 15 mmol/L; Blood Urea Nitrogen 16 mg/dL (9-20); Carbon Dioxide 20 mmol/L (22-30); Chloride 101 mmol/L (98-107); Glucose 108 mg/dL (74-99); Non-African American GFR(CKD) >90 (>60 ml/min/1.73 sqM); Potassium 4.3 mmol/L (3.5-5.1); Sodium 136 mmol/L (137-145); Total Bilirubin 0.8 mg/dL (0.2-1.3); Total Protein 8.6 g/dL (6.3-8.2)
[2021-04-15 11:36] LABS: INR 1.1 (<1.2); Partial Thromboplastin Time 24.4 sec (22.0-30.0); Prothrombin Time 12.1 sec (9.0-12.0)
[2021-04-15 11:40] LABS: Basophils # (A) 0.1 k/uL (0-0.2); Basophils % (A) 1 %; Eosinophils # (A) 0.2 k/uL (0-0.7); Eosinophils % (A) 2 %; HCT 52.8 % (39.0-53.0); HGB 17.9 gm/dL (13.0-17.5); Lymphocytes # (A) 2.4 k/uL (1.0-4.8); Lymphocytes % (A) 29 %; MCH 30.4 pg (25.0-35.0); MCV 89.5 fL (80.0-100.0); Mean Platelet Volume 7.9; Monocytes # (A) 0.7 k/uL (0-1.0); Monocytes % (A) 9 %; Neutrophils # (A) 4.8 k/uL (1.3-7.7); Neutrophils % (A) 58 %; Platelet Count 235 k/uL (150-450); RBC 5.89 m/uL (4.30-5.90); RDW 12.7 % (11.5-15.5); WBC 8.3 k/uL (3.8-10.6)
--- NOTE | 2021-04-15 11:41 | CT ---
EXAMINATION TYPE: CT mastoid wo con DATE OF EXAM: 04/15/2021 COMPARISON: Outside CT scan dated 04/01/2021 HISTORY: Left ear pain and dizziness. CT DLP: 243.2 mGycm. Automated Exposure Control for Dose Reduction was Utilized. TECHNIQUE: CT scan of internal auditory canal is performed without contrast, thin cut axial images ar e obtained, coronal reformatted images are also reviewed. FINDINGS: Persistent complete obstruction of the left external auditory canal by soft tissue thickening with ov erlying soft tissue thickening and swelling extending to the inferior aspect of the left ear pinna as well as along the lateral aspect the left TMJ. This is inseparable from the superior aspect of the s uperficial portion of the left parotid gland. A bone fragment measuring 6 mm is seen at that location which could represent bony debris or soft tissue calcification. This could be due to severe acute in flammation/infectious process however underlying neoplastic process cannot be excluded. There is persistent erosion of the adjacent portion of the left mastoid process and mastoid air cells with persistent complete opacification of the left mastoid air cells. There is also erosion of the r berto of the left mandibular fossa. Partial opacification of the left epitympanic space with opacificat ion of the left [place] space yet the scutum is apparently intact. No gross erosion of the left middl e ear ossicles. The left tympanic membrane is bulging into the middle ear cavity and suboptimally assessed. The tegme ntum tympani is apparently intact. Unremarkable left inner ear structures. Unremarkable right tempora l bone. Right maxillary sinus polyp/retention cyst measuring up to 16 mm. Mild mucosal thickening of the left maxillary sinus. Markedly enlarged nasopharyngeal soft tissue, please correlate clinically. IMPRESSION: Persistent signs suggestive of severe otitis externa/mastoiditis, with adjacent bony erosive changes as detailed above. This could be acute on top of chronic process. Overlying significant soft tissue s welling as described above. Underlying cholesteatoma or malignant process is not possible to exclude at this time. Recommend urgent ENT consultation.
[2021-04-15] MEDS ORDERED: NALOXONE 0.4 MG/ML 1 ML VIAL IV PRN (11:51)
[2021-04-15] MEDS ORDERED: ACETAMINOPHEN TAB 325 MG TAB PO PRN (11:51)
[2021-04-15] MEDS ORDERED: CLINDAMYCIN 900 MG in DEXTROSE 5% IN WATER 50 ML IVPB STA ×2 (11:53)
[2021-04-15] MEDS ORDERED: NICOTINE 21MG/24HR PATCH TRANSDERM PRN (12:17)
[2021-04-15] MEDS: SODIUM CHLORIDE 0.9% 1,000 ML IV SCH ×2 (12:50→21:53)
[2021-04-15] MEDS: traMADol 50 MG TAB PO PRN ×2 (12:51→20:18)
[2021-04-15] MEDS ORDERED: DAPTOmycin 500 MG in SODIUM CHLORIDE 0.9% 50 ML IVPB SCH (13:00)
[2021-04-15] MEDS: MORPHINE SULFATE 4 MG/ML SYRINGE IV PRN ×3 (14:37→21:40)
[2021-04-15] MEDS: metroNIDAZOLE 500 MG TAB PO SCH ×2 (16:43→21:40)
[2021-04-15] MEDS ORDERED: LEVOFLOXACIN 750MG-D5W PMX 750 MG in DEXTROSE/WATER 1 150ML.BAG IVPB SCH (17:30)
--- NOTE | 2021-04-15 17:36 | P.GSCN ---
History of Present Illness Consult date: 04/15/21 Reason for Consult: Ear pain left side since this summer Requesting physician: Florentin Randolph History of present illness: This is a 30-year-old white male who this summer had a repair of a left tympanic membranes perforation by Dr. Jerald Pelaez. Subsequently to the repair he is having intermittent ear infection issues. He's been treating with Dr. Pelaez for this chronic left-sided ear infection is tender and the ear is swollen. He's been treated with topical drops with no improvement. He has hearing loss in the left ear severe ear pain and swelling. 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 The patient has failed medical therapy in the past per the patient and referral for debridement and care is recommended. Review of Systems - Constitutional Reports as per HPI - EENT EENT Comment(s): Left ear canal is swollen and tender with some tenderness to the posterior auricular region. Small stone is palpable in the parotid gland on the left side. Canal is filled with purulent material and inflamed tissue. Ears, nose, mouth and throat: Reports as per HPI - Cardiovascular Reports as per HPI - Respiratory Reports as per HPI - Gastrointestinal Reports as per HPI - Genitourinary Reports as per HPI - Musculoskeletal Reports as per HPI - Integumentary Reports as per HPI - Neurological Reports as per HPI - Psychiatric Reports as per HPI - Hematologic/Lymphatic Reports as per HPI Past Medical History Past Medical History: No Reported History Additional Past Medical History / Comment(s): Covid positive 04/01/21, L tympanic membrane perforation 6-7 months ago/treated with antibiotics past several months, 2014 jaw fracture/surgeries. History of Any Multi-Drug Resistant Organisms: None Reported, MRSA Year Discovered:: 04/02/21 MDRO Source:: MRSA EAR Past Surgical History: Hernia Repair Additional Past Surgical History / Comment(s): jaw fracture repositioned then e nded up wired 05/04/14, inguinal hernia repair/pt cannot recall laterallity. Past Anesthesia/Blood Transfusion Reactions: No Reported Reaction Past Psychological History: Anxiety, Bipolar, Depression Smoking Status: Current some day smoker Past Alcohol Use History: None Reported Past Drug Use History: Marijuana - Past Family History Mother Additional Family Medical History / Comment(s): Mother is . Pt does not know her medical history. Father Family Medical History: Diabetes Mellitus, Neurologic Disorder Additional Family Medical History / Comment(s): Parkinson's disease Medications and Allergies Home Medications Medication Instructions Recorded Confirmed Type Acetaminophen Tab [Tylenol] 650 mg PO Q6HR PRN tab 04/05/21 04/15/21 Rx Ciprofloxacin-Dexameth [Ciprodex 4 drops LEFT EAR TID #1 each 04/05/21 04/15/21 Rx Otic Susp] Ibuprofen [Motrin Ib] 600 mg PO Q4H PRN #0 04/05/21 04/15/21 Rx Famotidine [Pepcid] 20 mg PO BID 30 Days #60 tab 04/08/21 04/15/21 Rx metroNIDAZOLE [Flagyl] 500 mg PO TID 30 Days #90 tab 04/08/21 04/15/21 Rx traMADol HCl [Ultram] 50 mg PO QID PRN #9 tab 04/08/21 04/15/21 Rx HYDROcodone/APAP 5-325MG [[place] 1 tab PO Q6HR PRN 04/09/21 04/15/21 History 5-325] Nicotine 21Mg/24Hr Patch [Habitrol] 1 patch TRANSDERM DAILY PRN 04/09/21 04/15/21 History Daptomycin 500mg 500 mg IV DAILY 04/15/21 04/15/21 History Allergies Allergy/AdvReac Type Severity Reaction Status Date / Time Penicillins Allergy Rash/Hives Verified 04/15/21 12:36 sulfamethoxazole Allergy Rash/Hives Verified 04/15/21 12:36 [From Bactrim] trimethoprim [From Bactrim] Allergy Rash/Hives Verified 04/15/21 12:36 vancomycin Allergy Rash/Hives Verified 04/15/21 12:36 Surgical - Exam Osteopathic Statement: *. No significant issues noted on an osteopathic structural exam other than those noted in the History and Physical/Consult. Vital Signs Temp Pulse Resp BP Pulse Ox 98.2 F 114 H 18 140/93 99 04/15/21 10:31 04/15/21 10:31 04/15/21 10:31 04/15/21 10:31 04/15/21 10:31 - General well developed, well nourished, moderate distress - Eyes PERRL, normal ocular movement - ENT Patient's left ear is swollen shut very tender to touch and the surrounding area parotid stone is palpable. Severe swelling and tenderness is noted in the left ear canal. normal mucosa, no no hearing loss - Neck no masses, no bruits - Abdomen Abdomen: soft - Neurologic normal coordination, normal sensation - Musculoskeletal normal gait, normal posture - Psychiatric oriented to time, oriented to person, oriented to place, speech is normal, memory intact Results - Labs 04/15/21 10:42 04/15/21 10:42 Abnormal Lab Results - Last 24 Hours (Table) 04/15/21 04/15/21 04/15/21 Range/Units 10:42 10:42 10:42 Hgb 17.9 H (13.0-17.5) gm/dL PT 12.1 H (9.0-12.0) sec Sodium 136 L (137-145) mmol/L Carbon Dioxide 20 L (22-30) mmol/L Glucose 108 H (74-99) mg/dL Plasma Lactic Acid Jin (0.7-2.0) mmol/L C-Reactive Protein (<1.0) mg/dL Total Protein 8.6 H (6.3-8.2) g/dL 04/15/21 04/15/21 Range/Units 10:42 10:42 Hgb (13.0-17.5) gm/dL PT (9.0-12.0) sec Sodium (137-145) mmol/L Carbon Dioxide (22-30) mmol/L Glucose (74-99) mg/dL Plasma Lactic Acid Jin 2.2 H* (0.7-2.0) mmol/L C-Reactive Protein 1.7 H (<1.0) mg/dL Total Protein (6.3-8.2) g/dL Diabetes panel 04/15/21 Range/Units 10:42 Sodium 136 L (137-145) mmol/L Potassium 4.3 (3.5-5.1) mmol/L Chloride 101 (98-107) mmol/L Carbon Dioxide 20 L (22-30) mmol/L BUN 16 (9-20) mg/dL Creatinine 0.95 (0.66-1.25) mg/dL Glucose 108 H (74-99) mg/dL Calcium 10.0 (8.4-10.2) mg/dL AST 23 (17-59) U/L ALT 23 (4-49) U/L Alkaline Phosphatase 70 (38-126) U/L Total Protein 8.6 H (6.3-8.2) g/dL Albumin 4.9 (3.5-5.0) g/dL Calcium panel 04/15/21 Range/Units 10:42 Calcium 10.0 (8.4-10.2) mg/dL Albumin 4.9 (3.5-5.0) g/dL Pituitary panel 04/15/21 Range/Units 10:42 Sodium 136 L (137-145) mmol/L Potassium 4.3 (3.5-5.1) mmol/L Chloride 101 (98-107) mmol/L Carbon Dioxide 20 L (22-30) mmol/L BUN 16 (9-20) mg/dL Creatinine 0.95 (0.66-1.25) mg/dL Glucose 108 H (74-99) mg/dL Calcium 10.0 (8.4-10.2) mg/dL Adrenal panel 04/15/21 Range/Units 10:42 Sodium 136 L (137-145) mmol/L Potassium 4.3 (3.5-5.1) mmol/L Chloride 101 (98-107) mmol/L Carbon Dioxide 20 L (22-30) mmol/L BUN 16 (9-20) mg/dL Creatinine 0.95 (0.66-1.25) mg/dL Glucose 108 H (74-99) mg/dL Calcium 10.0 (8.4-10.2) mg/dL Total Bilirubin 0.8 (0.2-1.3) mg/dL AST 23 (17-59) U/L ALT 23 (4-49) U/L Alkaline Phosphatase 70 (38-126) U/L Total Protein 8.6 H (6.3-8.2) g/dL Albumin 4.9 (3.5-5.0) g/dL Assessment and Plan (1) Malignant otitis externa, left ear Current Visit: Yes Status: Acute Code(s): H60.22 - MALIGNANT OTITIS EXTERNA, LEFT EAR SNOMED Code(s): 0495391573927835 (2) Osteomyelitis Current Visit: Yes Status: Acute Code(s): M86.9 - OSTEOMYELITIS, UNSPECIFIED SNOMED Code(s): 31296494 (3) Parotid sialolithiasis Current Visit: Yes Status: Acute Code(s): K11.5 - SIALOLITHIASIS SNOMED Code(s): 714464035 Plan: This patient has a severe infection of the left mastoid and temporal bone. He has otitis externa maligna and I'm recommending a transfer to a tertiary care center for definitive treatment and possible debridement. The CAT scan shows significant bony erosion of the posterior wall of the ear canal and this is an aggressive and infection that may need surgical debridement. Culture has been recommended. Agnes has been admitted to the therapy and we will work with nursing staff and primary care to expedite a transfer to a tertiary care center. Time with Patient: Greater than 30
[2021-04-15] MEDS: CIPROFLOXACIN-DEXAMETH 0.3-0.1% DROPS 7.5 ML BTL LEFT EAR SCH ×2 (18:49→21:40)
[2021-04-15] MEDS ORDERED: CLINDAMYCIN 600 MG in DEXTROSE 5% IN WATER 50 ML IVPB SCH ×2 (20:00)
[2021-04-15] MEDS: FAMOTIDINE 20 MG TAB PO SCH (21:40)
--- NOTE | 2021-04-15 22:33 | P.HPIM ---
History of Present Illness H&P Date: 04/15/21 Chief Complaint: Left ear pain Patient is a 35-year-old male with a known history of left tympanic perforation about 6 to 7 months ago and has multiple admissions since then with left middle ear infection and mastoiditis and was recently discharged 04/10/2021. Patient was discharged on daptomycin and oral Flagyl and Ciprodex drops. Patient states that for the past few days he has been having drainage from the left ear and bleeding noted. Patient was afebrile on admission. Tachycardic. CT of the head and mastoid showed persistent s sinus suggestive of severe otitis e xterna/mastoiditis with adjacent bony erosive changes as detailed. This could be acute on top of chronic process. Overlying significant soft tissue swelling noted. Underlying cholesteatoma or malignant process is not possible to exclude at this time. Recommend urgent ENT consultation. Review of Systems Constitutional: Patient denies any fever or chills . No generalized weakness or weight loss. Abdomen: Patient denied nausea vomiting and diarrhea and abdominal pain. Cardiovascular: Patient denies any chest pain or short of breath no palpitations. Respiratory: patient denied any cough or sputum production. No shortness of breath Neurologic: Patient denied any numbness or tingling headache. Musculoskeletal: Patient denies any complaints of joint swelling or deformity. Left ear pain and swelling and purulent drainage. Skin: Negative Psychiatric: Negative Endocrine: No heat or cold intolerance. No recent weight gain. Genitourinary: No dysuria or hematuria. All other 14 point ROS negative except the above Past Medical History Past Medical History: No Reported History Additional Past Medical History / Comment(s): Covid positive 04/01/21, L tympanic membrane perforation 6-7 months ago/treated with antibiotics past several months, 2014 jaw fracture/surgeries. History of Any Multi-Drug Resistant Organisms: None Reported, MRSA Date of last positivie culture/infection: 04/02/21 MDRO Source:: MRSA EAR Past Surgical History: Hernia Repair Additional Past Surgical History / Comment(s): jaw fracture repositioned then ended up wired 05/04/14, inguinal hernia repair/pt cannot recall laterallity. Past Anesthesia/Blood Transfusion Reactions: No Reported Reaction Past Psychological History: Anxiety, Bipolar, Depression Smoking Status: Current some day smoker Past Alcohol Use History: None Reported Past Drug Use History: Marijuana - Past Family History Mother Additional Family Medical History / Comment(s): Mother is . Pt does not know her medical history. Father Family Medical History: Diabetes Mellitus, Neurologic Disorder Additional Family Medical History / Comment(s): Parkinson's disease Medications and Allergies Home Medications Medication Instructions Recorded Confirmed Type Acetaminophen Tab [Tylenol] 650 mg PO Q6HR PRN tab 04/05/21 04/15/21 Rx Ciprofloxacin-Dexameth [Ciprodex 4 drops LEFT EAR TID #1 each 04/05/21 04/15/21 Rx Otic Susp] Ibuprofen [Motrin Ib] 600 mg PO Q4H PRN #0 04/05/21 04/15/21 Rx Famotidine [Pepcid] 20 mg PO BID 30 Days #60 tab 04/08/21 04/15/21 Rx metroNIDAZOLE [Flagyl] 500 mg PO TID 30 Days #90 tab 04/08/21 04/15/21 Rx traMADol HCl [Ultram] 50 mg PO QID PRN #9 tab 04/08/21 04/15/21 Rx HYDROcodone/APAP 5-325MG [[place] 1 tab PO Q6HR PRN 04/09/21 04/15/21 History 5-325] Nicotine 21Mg/24Hr Patch [Habitrol] 1 patch TRANSDERM DAILY PRN 04/09/21 04/15/21 History Daptomycin 500mg 500 mg IV DAILY 04/15/21 04/15/21 History Allergies Allergy/AdvReac Type Severity Reaction Status Date / Time Penicillins Allergy Rash/Hives Verified 04/15/21 12:36 sulfamethoxazole Allergy Rash/Hives Verified 04/15/21 12:36 [From Bactrim] trimethoprim [From Bactrim] Allergy Rash/Hives Verified 04/15/21 12:36 vancomycin Allergy Rash/Hives Verified 04/15/21 12:36 Physical Exam Vitals: Vital Signs Temp Pulse Resp BP Pulse Ox 04/15/21 21:50 97.6 F 85 18 146/85 96 04/15/21 14:35 90 18 138/96 98 04/15/21 10:31 98.2 F 114 H 18 140/93 99 Intake and Output 04/15/21 04/15/21 04/15/21 06:59 14:59 22:59 Other: Weight 63.503 kg PHYSICAL EXAMINATION: Patient is lying in the bed comfortably, no acute distress, awake alert and oriented.. HEENT: Normocephalic. Neck is supple. Pupils reactive. Nostrils clear. Oral cavity is moist. Patient does have left ear and mastoid process tenderness and extensive swelling, redness and warmth. Seropurulent drainage from the left ear. Neck reveals no JVD, carotid bruits, or thyromegaly. CHEST EXAMINATION: Trachea is central. Symmetrical expansion. Lung car clear to auscultation and percussion. CARDIAC: Normal S1, S2 with no gallops. No murmurs ABDOMEN: Soft. Bowel sounds normal. No organomegaly. No abdominal bruits. Extremities: reveal no edema. No clubbing or cyanosis Neurologically awake, alert, oriented x3 with well-coordinated movements. No focal deficits noted Skin: No rash or skin lesions. Psychiatric: Cooperative. Nonsuicidal Musculoskeletal: No joint swelling or deformity. Normal range of motion. Results CBC & Chem 7: 04/15/21 10:42 04/15/21 10:42 Labs: Abnormal Lab Results - Last 24 Hours (Table) 04/15/21 04/15/21 04/15/21 Range/Units 10:42 10:42 10:42 Hgb 17.9 H (13.0-17.5) gm/dL PT 12.1 H (9.0-12.0) sec Sodium 136 L (137-145) mmol/L Carbon Dioxide 20 L (22-30) mmol/L Glucose 108 H (74-99) mg/dL Plasma Lactic Acid Jin (0.7-2.0) mmol/L C-Reactive Protein (<1.0) mg/dL Total Protein 8.6 H (6.3-8.2) g/dL Procalcitonin (0.02-0.09) ng/mL 04/15/21 04/15/21 04/15/21 Range/Units 10:42 10:42 14:08 Hgb (13.0-17.5) gm/dL PT (9.0-12.0) sec Sodium (137-145) mmol/L Carbon Dioxide (22-30) mmol/L Glucose (74-99) mg/dL Plasma Lactic Acid Jin 2.2 H* (0.7-2.0) mmol/L C-Reactive Protein 1.7 H (<1.0) mg/dL Total Protein (6.3-8.2) g/dL Procalcitonin 0.83 H (0.02-0.09) ng/mL Thrombosis Risk Factor Assmnt - DVT/VTE Prophylaxis DVT/VTE Prophylaxis: Pharmacologic Prophylaxis ordered Assessment and Plan Assessment: Malignant otitis externa of the left ear. Acute on chronic mastoiditis with adjacent bony erosions Possible osteomyelitis Left facial cellulitis. Ongoing nicotine addiction History of heroine abuse Fracture tympanic membranes THC use GI and DVT prophylaxis Plan: Patient will be continued on antibiotics in the form of daptomycin, Levaquin was added by ENT. Continue with Ciprodex eardrops. Continue with IV hydration and monitor closely. Follow-up culture reports. Due to suspected otitis externa maligna, ENT is recommended to be transferred for definitive treatment and possible debridement. Case management service was consulted and is planning to transfer to tertiary care facility. Time with Patient: Greater than 30
--- NOTE | 2021-04-15 23:38 | P.CONS ---
History of Present Illness - Reason for Consult Consult date: 04/15/21 Left-sided mastoiditis Requesting physician: Florentin Randolph - Chief Complaint Left ear pain and drainage worsening x few days - History of Present Illness Patient is a 35-year male with a past medical history significant for recurrent left ear infection that has been going on for a few months now patient was recently admitted at this facility patient did have a CT at [facility] prior to the patient being transferred here with evidence of mastoiditis local culture positive for MRSA and anaerobes patient was discharged home on IV vancomycin and oral Flagyl patient subsequently presented back to the hospital with the rash thought to be related to possible vancomycin which was discontinued and the patient was switched over to daptomycin and oral Flagyl was continued patient now presenting back to the hospital with concern for dizziness that apparently s tarted yesterday before presentation to the hospital has been complaining of feeling of spinning sensation patient did have several episodes of vomiting and did have nausea patient also complaining of bleeding from his left ear that is new compared to previous symptoms with the symptom the patient was evaluated by the ER physician on arrival to the ER the patient was afebrile patient did have a normal white count CRP was mildly elevated sed rate is normal patient did have a head and mastoid CT obtained which shows signs suggestive of severe otitis externa or mastoiditis with adjacent bone erosion patient was admitted to the hospital continued on daptomycin infectious disease was consulted for further management of antibiotic therapy Review of Systems CONSTITUTIONAL: Positive for weakness. Denies high-grade Fever EYES: No complaint. ENT:As per history of present illness RESPIRATORY: No complaint. CARDIOVASCULAR: No complaint. GENITOURINARY: No complaint. GASTROINTESTINAL: No complaint. MUSCULOSKELETAL: No complaint. INTEGUMENTARY: No complaint. PSYCHOLOGICAL: No complaint. ENDOCRINE: No complaint. NEUROLOGIC: No complaint. Past Medical History Past Medical History: No Reported History Additional Past Medical History / Comment(s): Covid positive 04/01/21, L tympanic membrane perforation 6-7 months ago/treated with antibiotics past several months, 2014 jaw fracture/surgeries. History of Any Multi-Drug Resistant Organisms: None Reported, MRSA Year Discovered:: 04/02/21 MDRO Source:: MRSA EAR Past Surgical History: Hernia Repair Additional Past Surgical History / Comment(s): jaw fracture repositioned then ended up wired 05/04/14, inguinal hernia repair/pt cannot recall laterallity. Past Anesthesia/Blood Transfusion Reactions: No Reported Reaction Past Psychological History: Anxiety, Bipolar, Depression Smoking Status: Current some day smoker Past Alcohol Use History: None Reported Past Drug Use History: Marijuana - Past Family History Mother Additional Family Medical History / Comment(s): Mother is . Pt does not know her medical history. Father Family Medical History: Diabetes Mellitus, Neurologic Disorder Additional Family Medical History / Comment(s): Parkinson's disease Medications and Allergies Home Medications Medication Instructions Recorded Confirmed Type Acetaminophen Tab [Tylenol] 650 mg PO Q6HR PRN tab 04/05/21 04/15/21 Rx Ciprofloxacin-Dexameth [Ciprodex 4 drops LEFT EAR TID #1 each 04/05/21 04/15/21 Rx Otic Susp] Ibuprofen [Motrin Ib] 600 mg PO Q4H PRN #0 04/05/21 04/15/21 Rx Famotidine [Pepcid] 20 mg PO BID 30 Days #60 tab 04/08/21 04/15/21 Rx metroNIDAZOLE [Flagyl] 500 mg PO TID 30 Days #90 tab 04/08/21 04/15/21 Rx traMADol HCl [Ultram] 50 mg PO QID PRN #9 tab 04/08/21 04/15/21 Rx HYDROcodone/APAP 5-325MG [[place] 1 tab PO Q6HR PRN 04/09/21 04/15/21 History 5-325] Nicotine 21Mg/24Hr Patch [Habitrol] 1 patch TRANSDERM DAILY PRN 04/09/21 04/15/21 History Daptomycin 500mg 500 mg IV DAILY 04/15/21 04/15/21 History Allergies Allergy/AdvReac Type Severity Reaction Status Date / Time Penicillins Allergy Rash/Hives Verified 04/15/21 12:36 sulfamethoxazole Allergy Rash/Hives Verified 04/15/21 12:36 [From Bactrim] trimethoprim [From Bactrim] Allergy Rash/Hives Verified 04/15/21 12:36 vancomycin Allergy Rash/Hives Verified 04/15/21 12:36 Physical Exam Vitals: Vital Signs Temp Pulse Resp BP Pulse Ox 04/15/21 10:31 98.2 F 114 H 18 140/93 99 Intake and Output 04/14/21 04/15/21 04/15/21 22:59 06:59 14:59 Other: Weight 63.503 kg GENERAL DESCRIPTION: Middle-aged male lying in bed, no distress. No tachypnea or accessory muscle of respiration use. HEENT: Shows Pallor , no scleral icterus. Oral mucous membrane is dry. No pharyngeal erythema or thrush Left ear did have a some fluid inside the canal no swelling or redness of the external ear NECK: Trachea central, no thyromegaly. LUNGS: Unlabored breathing. Clear to auscultation anteriorly. No wheeze or crackle. HEART: S1, S2, regular rate and rhythm. No loud murmur ABDOMEN: Soft, no tenderness , guarding or rigidity, no organomegaly EXTREMITIES: No edema of feet. SKIN: No rash, no masses palpable. NEUROLOGICAL: The patient is awake, alert, oriented x3, mood and affect normal. Results CBC & Chem 7: 04/15/21 10:42 04/15/21 10:42 Labs: Abnormal Lab Results - Last 24 Hours (Table) 04/15/21 04/15/21 04/15/21 Range/Units 10:42 10:42 10:42 Hgb 17.9 H (13.0-17.5) gm/dL PT 12.1 H (9.0-12.0) sec Sodium 136 L (137-145) mmol/L Carbon Dioxide 20 L (22-30) mmol/L Glucose 108 H (74-99) mg/dL Plasma Lactic Acid Jin (0.7-2.0) mmol/L Total Protein 8.6 H (6.3-8.2) g/dL 04/15/21 Range/Units 10:42 Hgb (13.0-17.5) gm/dL PT (9.0-12.0) sec Sodium (137-145) mmol/L Carbon Dioxide (22-30) mmol/L Glucose (74-99) mg/dL Plasma Lactic Acid Jin 2.2 H* (0.7-2.0) mmol/L Total Protein (6.3-8.2) g/dL Assessment and Plan (1) Mastoiditis of left side Current Visit: Yes Status: Acute Code(s): H70.92 - UNSPECIFIED MASTOIDITIS, LEFT EAR SNOMED Code(s): 4881575592430250 Plan: 1-Patient with recurrent left ear infection now with evidence of mastoiditis in this patient cultures done on April 02 were positive for MRSA and out of gram- positive in this patient was rehospitalized with dizziness spinning of the room and bleeding from his left ear with concern for worsening mastoiditis. 2patient with multiple antibiotic allergies that would limit the number of antibiotics safe to use 3-patient will benefit from ENT evaluation for possible debridement and deep cultures. 4patient to continue with the daptomycin we will add to cefepime while waiting for the work-up to be completed we will follow on clinical condition and cultures to further adjust medication if needed Thank you for this consultation we will follow the patient along with you Time with Patient: Greater than 30
[2021-04-16] MEDS: HEPARIN SODIUM,PORCINE/PF 5,000 UNIT/0.5 ML SYRINGE SQ SCH ×4 (01:01→22:47)
[2021-04-16] MEDS ORDERED: HYDROmorphone 0.5 MG/0.5 ML SYRINGE IVP STA (01:31)
[2021-04-16] MEDS: KETOROLAC 15 MG/ML 1 ML VIAL IVP SCH ×2 (01:49→09:24)
[2021-04-16] MEDS: MORPHINE SULFATE 4 MG/ML SYRINGE IV PRN ×3 (07:00→21:36)
[2021-04-16 07:32] LABS: African American GFR (CKD) >90 (>60 ml/min/1.73 sqM); Anion Gap 7 mmol/L; Blood Urea Nitrogen 13 mg/dL (9-20); Calcium 8.9 mg/dL (8.4-10.2); Carbon Dioxide 25 mmol/L (22-30); Chloride 104 mmol/L (98-107); Glucose 92 mg/dL (74-99); Non-African American GFR(CKD) >90 (>60 ml/min/1.73 sqM); Potassium 4.6 mmol/L (3.5-5.1); Sodium 136 mmol/L (137-145)
[2021-04-16 08:09] LABS: Basophils # (A) 0.1 k/uL (0-0.2); Basophils % (A) 1 %; Eosinophils # (A) 0.2 k/uL (0-0.7); Eosinophils % (A) 3 %; HCT 45.9 % (39.0-53.0); HGB 15.1 gm/dL (13.0-17.5); Lymphocytes # (A) 2.1 k/uL (1.0-4.8); Lymphocytes % (A) 33 %; MCH 30.2 pg (25.0-35.0); MCHC 32.9 g/dL (31.0-37.0); Mean Platelet Volume 8.4; Monocytes # (A) 0.9 k/uL (0-1.0); Monocytes % (A) 14 %; Neutrophils # (A) 2.8 k/uL (1.3-7.7); Neutrophils % (A) 45 %; Platelet Count 170 k/uL (150-450); RBC 4.98 m/uL (4.30-5.90); RDW 11.9 % (11.5-15.5); WBC 6.2 k/uL (3.8-10.6)
[2021-04-16] MEDS: metroNIDAZOLE 500 MG TAB PO SCH ×3 (08:35→20:49)
[2021-04-16] MEDS: FAMOTIDINE 20 MG TAB PO SCH ×2 (08:36→20:49)
[2021-04-16] MEDS: KETOROLAC 30 MG/ML 1 ML VIAL IVP SCH ×3 (08:46→20:49)
[2021-04-16] MEDS: CIPROFLOXACIN-DEXAMETH 0.3-0.1% DROPS 7.5 ML BTL LEFT EAR SCH ×3 (09:00→20:50)
[2021-04-16] MEDS ORDERED: DAPTOmycin 500 MG in SODIUM CHLORIDE 0.9% 50 ML IVPB SCH (09:00)
[2021-04-16] MEDS ORDERED: CEFEPIME 2 GM in SODIUM CHLORIDE 0.9% 100 ML IVPB SCH ×2 (09:00→16:00)
[2021-04-16] MEDS ORDERED: ALPRAZolam 0.25 MG TAB PO PRN (14:50)
[2021-04-16] MEDS ORDERED: HYDROcodone/APAP 7.5-325MG 1 EACH TAB PO PRN (14:50)
[2021-04-16 14:54] VITALS: BMI 21.9
[2021-04-16] MEDS: SODIUM CHLORIDE 0.9% 1,000 ML IV SCH ×3 (17:30→17:37)
[2021-04-16 20:49] VITALS: BP 148/87; PULSE 75; RESP 16; TEMP 98
[2021-04-16] MEDS ORDERED: TEMAZEPAM 15 MG CAP PO SCH (21:00)
--- NOTE | 2021-04-16 22:17 | P.PN ---
Subjective Progress Note Date: 04/16/21 Principal diagnosis: Left-sided mastoiditis/osteomyelitis Patient is a 35-year-old male with a past medical history significant for recurrent left infection with a recent diagnosis of a left-sided mastoiditis superficial culture positive for MRSA and anaerobes and the patient was on daptomycin and pleasant presented to hospital predominantly with dizziness spinning of the room and vomiting with the CT shows slight worsening of the mastoiditis/osteomyelitis. On today's evaluation that is 04/16/2021, the patient denies having any fever or any chills, no further dizziness or vomiting; complaining of pain to the left ear but no further drainage no chest pain shortness of breath or cough no abdominal pain no diarrhea Objective - Vital Signs Vital signs: Vital Signs Temp 98.2 F 04/16/21 11: Pulse 83 04/16/21 11:22 Resp 20 04/16/21 11:22 BP 121/62 04/16/21 11:22 Pulse Ox 99 04/16/21 11:22 Intake & Output 04/15/21 04/16/21 04/16/21 18:59 06:59 18:59 Weight 63.503 kg Other: Voiding Method Toilet Toilet # Voids 1 - Exam GENERAL DESCRIPTION: A middle-aged male lying in bed in no distress HEENT : Left External ear with no swelling or redness no drainage was noticed RESPIRATORY SYSTEM: Unlabored breathing , decreased breath sounds at bases HEART: S1 S2 regular rate and rhythm , ABDOMEN: Soft , no tenderness EXTREMITIES: No edema feet - Labs CBC & Chem 7: 04/16/21 06:36 04/16/21 06:36 Labs: Abnormal Lab Results - Last 24 Hours (Table) 04/15/21 04/15/21 04/16/21 Range/Units 10:42 14:08 06:36 Sodium 136 L (137-145) mmol/L C-Reactive Protein 1.7 H (<1.0) mg/dL Procalcitonin 0.83 H (0.02-0.09) ng/mL Assessment and Plan (1) Mastoiditis of left side Current Visit: Yes Status: Acute Code(s): H70.92 - UNSPECIFIED MASTOIDITIS, LEFT EAR SNOMED Code(s): 3737033245652501 Plan: 1-Patient with recurrent left ear infection now with evidence of mastoiditis in this patient cultures done on April 02 were positive for MRSA and anaerobic gram-positive in this patient was rehospitalized with dizziness spinning of the room and bleeding from his left ear with concern for worsening mastoiditis. 2patient with multiple antibiotic allergies that would limit the number of antibiotics safe to use 3-patient to continue with the daptomycin and cefepime , waiting for possible transfer to tertiary care for surgical intervention and deep culture Time with Patient: Less than 30
--- NOTE | 2021-04-17 05:00 | P.PN ---
Subjective Progress Note Date: 04/16/21 Patient is a 35-year-old male with a known history of left tympanic perforation about 6 to 7 months ago and has multiple admissions since then with left middle ear infection and mastoiditis and was recently discharged 04/10/2021. Patient was discharged on daptomycin and oral Flagyl and Ciprodex drops. Patient states that for the past few days he has been having drainage from the left ear and bleeding noted. Patient was afebrile on admission. Tachycardic. CT of the head and mastoid showed persistent s sinus suggestive of severe otitis externa/mastoiditis with adjacent bony erosive changes as detailed. This could be acute on top of chronic process. Overlying significant soft tissue swelling noted. Underlying cholesteatoma or malignant process is not possible to exclude at this time. Recommend urgent ENT consultation. 04/16/2021 Patient is seen and evaluated this morning and continues on IV antibiotics with ID following closely. Patient has PICC line as he has failed with outpatient erapy. Patient continues with facial swelling and extreme discomfort to the left ear and side of the face. Patient evaluated by ENT and [facility] and [facility]. Case management consulted and transfer process initiated to [facility] who has been accepted and requiring insurance authorization. Review of systems: Constitutional: Patient denies any fever or chills . No generalized weakness or weight loss. GI: Patient denied nausea vomiting and diarrhea and abdominal pain. Cardiovascular: Patient denies any chest pain or short of breath no palpitations. Respiratory: patient denied any cough or sputum production. No shortness of breath Neurologic: Patient denied any numbness or tingling headache. Musculoskeletal: Patient denies any complaints of joint swelling or deformity. Left ear pain and swelling and purulent drainage. Medications have been reviewed. Physical exam: Patient is lying in the bed comfortably, no acute distress, awake alert and oriented.. HEENT: Normocephalic. Neck is supple. Pupils reactive. Nostrils clear. Oral cavity is moist. Patient does have left ear and mastoid process tenderness and extensive swelling, redness and warmth. Seropurulent drainage from the left ear. Neck reveals no JVD, carotid bruits, or thyromegaly. CHEST EXAMINATION: Trachea is central. Symmetrical expansion. Lung car clear to auscultation and percussion. CARDIAC: Normal S1, S2 with no gallops. No murmurs ABDOMEN: Soft. Bowel sounds normal. No organomegaly. No abdominal bruits. Extremities: reveal no edema. No clubbing or cyanosis Neurologically awake, alert, oriented x3 with well-coordinated movements. No focal deficits noted Skin: No rash or skin lesions. Psychiatric: Cooperative. Nonsuicidal Musculoskeletal: No joint swelling or deformity. Normal range of motion. 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 Acute on chronic mastoiditis with adjacent bony erosions Possible osteomyelitis Left facial cellulitis. Ongoing nicotine addiction History of heroine abuse Ruptured tympanic membrane of the left history THC use GI and DVT prophylaxis full code Plan: Patient will be continued on antibiotics in the form of daptomycin, Levaquin was added by ENT. Continue with Ciprodex eardrops. Continue with IV hydration and monitor closely. Follow-up culture reports. Cultures continue to be pending at this time and will continue with current medications. Pain uncontrolled at this time and will add toradol and oral norco. Due to suspected otitis externa maligna, ENT is recommended to be transferred for definitive treatment and possible debridement. Case management service was consulted and is planning to transfer to tertiary care facility. Insurance authorization required and pending. Patient has been accepted to [facility]. Objective - Vital Signs Vital signs: Vital Signs Temp 98.2 F 04/16/21 11:22 Pulse 83 04/16/21 11:22 Resp 20 04/16/21 11:22 BP 121/62 04/16/21 11:22 Pulse Ox 99 04/16/21 11:22 Intake & Output 04/15/21 04/16/21 04/16/21 18:59 06:59 18:59 Weight 63.503 kg Other: Voiding Method Toilet Toilet # Voids 1 - Labs CBC & Chem 7: 04/16/21 06:36 04/16/21 06:36 Labs: Abnormal Lab Results - Last 24 Hours (Table) 04/15/21 04/16/21 Range/Units 14:08 06:36 Sodium 136 L (137-145) mmol/L Procalcitonin 0.83 H (0.02-0.09) ng/mL
--- NOTE | 2021-04-17 08:50 | P.DS ---
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 Acute on chronic mastoiditis with adjacent bony erosions Possible osteomyelitis Left facial cellulitis. Ongoing nicotine addiction History of heroine abuse Ruptured tympanic membrane of the left history THC use GI and DVT prophylaxis full code Discharge disposition Patient is being transferred in a stable condition with guarded prognosis to [facility] in [place] for further evaluation. Patient will follow-up with primary care provider in the outpatient setting upon discharge. Patient is to continue with IV antibiotics per infectious disease recommendations. Total time taken is greater than 35 minutes. Hospital course This is a 35-year-old male who was recently admitted with left middle ear infection and mastoiditis and has recently been admitted and discharged on IV antibiotics with a PICC line and was scheduled to follow-up with ENT out [facility] in the outpatient setting although patient continued to have worsening symptoms and increasing pain and inability to eat and came back to the ER for further evaluation. Patient was evaluated by ENT who recommends urgent transfer to [facility] [address] for further evaluation and surgical interventions. Transfer initiation was started and patient was accepted at [facility] although requiring prior authorization from insurance. Authorization was obtained late evening on 04/16/2021 and patient was transferred via EMS to [facility]. Accepting physician was Dr. Shiraz Dorsey of [facility]. Patient is medically stable for transfer to [facility] [address]. Awaiting a bed assignment. Currently no reports of chest pain, shortness of breath, or palpitations. Patient is afebrile. No reports of nausea or vomiting and patient is tolerating diet. Physical exam: Patient is lying in the bed comfortably, no acute distress, awake alert and oriented.. HEENT: Normocephalic. Neck is supple. Pupils reactive. Nostrils clear. Oral cavity is moist. Patient does have left ear and mastoid process tenderness and extensive swelling, redness and warmth. Seropurulent drainage from the left ear. Neck reveals no JVD, carotid bruits, or thyromegaly. CHEST EXAMINATION: Trachea is central. Symmetrical expansion. Lung car clear to auscultation and percussion. CARDIAC: Normal S1, S2 with no gallops. No murmurs ABDOMEN: Soft. Bowel sounds normal. No organomegaly. No abdominal bruits. Extremities: reveal no edema. No clubbing or cyanosis Neurologically awake, alert, oriented x3 with well-coordinated movements. No focal deficits noted Skin: No rash or skin lesions. Psychiatric: Cooperative. Non-suicidal Musculoskeletal: No joint swelling or deformity. Normal range of motion. Please refer to medication reconciliation sheet for a list of medications. Patient Condition at Discharge: Fair Plan - Discharge Summary Discharge Rx Participant: No New Discharge Prescriptions: No Action Ibuprofen [Motrin Ib] 600 mg PO Q4H PRN #0 PRN Reason: Pain metroNIDAZOLE [Flagyl] 500 mg PO TID 30 Days #90 tab HYDROcodone/APAP 5-325MG [[place] 5-325] 1 tab PO Q6HR PRN PRN Reason: Pain Ciprofloxacin-Dexameth [Ciprodex Otic Susp] 4 drops LEFT EAR TID #1 each Acetaminophen Tab [Tylenol] 650 mg PO Q6HR PRN tab PRN Reason: Mild Pain Or Fever > 100.5 Famotidine [Pepcid] 20 mg PO BID 30 Days #60 tab traMADol HCl [Ultram] 50 mg PO QID PRN #9 tab PRN Reason: Pain Nicotine 21Mg/24Hr Patch [Habitrol] 1 patch TRANSDERM DAILY PRN PRN Reason: Nicotine Cravings Daptomycin 500mg 500 mg IV DAILY Discharge Medication List Acetaminophen Tab [Tylenol] 650 mg PO Q6HR PRN tab 04/05/21 [Rx] Ciprofloxacin-Dexameth [Ciprodex Otic Susp] 4 drops LEFT EAR TID #1 each 04/05/21 [Rx] Ibuprofen [Motrin Ib] 600 mg PO Q4H PRN #0 04/05/21 [Rx] Famotidine [Pepcid] 20 mg PO BID 30 Days #60 tab 04/08/21 [Rx] metroNIDAZOLE [Flagyl] 500 mg PO TID 30 Days #90 tab 04/08/21 [Rx] traMADol HCl [Ultram] 50 mg PO QID PRN #9 tab 04/08/21 [Rx] HYDROcodone/APAP 5-325MG [[place] 5-325] 1 tab PO Q6HR PRN 04/09/21 [History] Nicotine 21Mg/24Hr Patch [Habitrol] 1 patch TRANSDERM DAILY PRN 04/09/21 [History] Daptomycin 500mg 500 mg IV DAILY 04/15/21 [History] Follow up Appointment(s)/Referral(s): None,Stated [Primary Care Provider] - 1-2 days Discharge Disposition: DC/[facility] INTERMEDIATE CARE FAC
== END 2021-04-16 10:50 ==
LOC: EC 10:30 → 1SOBS 11:51 → 5NMEDONC 04-16 00:38 → OBSVTOIN 04-16 08:57 → INTOOBSV 04-16 08:57 → UNDODISIN 04-16 10:50
PROVIDERS: ADMIT Internal Medicine; ATTEND Internal Medicine
DX: H60.22 Malignant otitis externa, left ear (principal); H70.002 Acute mastoiditis without complications, left ear; L03.211 Cellulitis of face; H70.12 Chronic mastoiditis, left ear; K11.5 Sialolithiasis; M85.88 Other specified disorders of bone density and structure, other site; H72.92 Unspecified perforation of tympanic membrane, left ear; R00.0 Tachycardia, unspecified; F17.200 Nicotine dependence, unspecified, uncomplicated; H91.92 Unspecified hearing loss, left ear; F31.9 Bipolar disorder, unspecified; F41.9 Anxiety disorder, unspecified; Z20.822 Contact with and (suspected) exposure to COVID-19; Z79.899 Other long term (current) drug therapy; Z88.0 Allergy status to penicillin; Z88.1 Allergy status to other antibiotic agents; Z88.2 Allergy status to sulfonamides; Z86.16 Personal history of COVID-19; Z86.14 Personal history of Methicillin resistant Staphylococcus aureus infection; Z87.898 Personal history of other specified conditions; Z98.890 Other specified postprocedural states; Z82.0 Family history of epilepsy and other diseases of the nervous system; Z83.3 Family history of diabetes mellitus
CPT/HCPCS: 96376 ×2; 96361 ×3; 96366 ×2; 96367; 96365; 96375 ×2; 99285; 36415; 80053; 80048; 85652; 83605; 85025 ×2; 85610; 85730; 86140; 87040; 84145; 87635; 70486; G0378 ×3; S4990; J2270 ×2; J2765; J0692; J1885 ×2; J0878; J1956; J1170; 96374

== ENCOUNTER 2021-05-01 04:09 | Emergency (ER) | payer OTHER ==
[2021-05-01 04:17] VITALS: TEMP 98.1
[2021-05-01] MEDS ORDERED: MORPHINE SULFATE 4 MG/ML SYRINGE IM STA (04:33)
--- NOTE | 2021-05-01 04:39 | ED ---
ENT HPI - General Chief complaint: ENT Stated complaint: Pain Control Time Seen by Provider: 05/01/21 04:18 Source: patient Mode of arrival: EMS Limitations: no limitations - History of Present Illness Initial comments: 's patient is a 35-year-old man who presents with left ear pain that is been going on for months. 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 The patient states that he will be requiring surgery but this has not yet been scheduled. He is being managed at home with [facility] but states that he has not been able sleep tonight due to pain and he is requesting pain management. The patient states he doesn't tend to continue following with [facility] are related to the cancer care. He has not had fever or chills. No purulent drainage. MD complaint: ear pain -: month(s) Location: L ear Severity: severe Quality: aching Consistency: constant Improves with: none Worsens with: none Context-Epistaxis: recent surgery/procedure - Related Data Home Medications Medication Instructions Recorded Confirmed HYDROcodone/APAP 5-325MG [[place] 1 tab PO Q6HR PRN 04/09/21 04/15/21 5-325] Nicotine 21Mg/24Hr Patch [Habitrol] 1 patch TRANSDERM DAILY PRN 04/09/21 04/15/21 Daptomycin 500mg 500 mg IV DAILY 04/15/21 04/15/21 Previous Rx's Medication Instructions Recorded Acetaminophen Tab [Tylenol] 650 mg PO Q6HR PRN tab 04/05/21 Ciprofloxacin-Dexameth [Ciprodex 4 drops LEFT EAR TID #1 each 04/05/21 Otic Susp] Ibuprofen [Motrin Ib] 600 mg PO Q4H PRN #0 04/05/21 Famotidine [Pepcid] 20 mg PO BID 30 Days #60 tab 04/08/21 metroNIDAZOLE [Flagyl] 500 mg PO TID 30 Days #90 tab 04/08/21 traMADol HCl [Ultram] 50 mg PO QID PRN #9 tab 04/08/21 Allergies Allergy/AdvReac Type Severity Reaction Status Date / Time Penicillins Allergy Rash/Hives Verified 04/15/21 12:36 sulfamethoxazole Allergy Rash/Hives Verified 04/15/21 12:36 [From Bactrim] trimethoprim [From Bactrim] Allergy Rash/Hives Verified 04/15/21 12:36 vancomycin Allergy Rash/Hives Verified 04/15/21 12:36 Review of Systems ROS Statement: Those systems with pertinent positive or pertinent negative responses have been documented in the HPI. ROS Other: All systems not noted in ROS Statement are negative. Constitutional: Denies: fever, chills Eyes: Denies: eye pain ENT: Reports: ear pain. Denies: hearing loss Respiratory: Denies: cough, dyspnea Cardiovascular: Denies: chest pain Gastrointestinal: Denies: abdominal pain, vomiting Musculoskeletal: Denies: back pain Skin: Denies: rash Neurological: Reports: headache. Denies: weakness, numbness, confusion Past Medical History Past Medical History: Cancer Additional Past Medical History / Comment(s): Covid positive 04/01/21, L tympanic membrane perforation 6-7 months ago/treated with antibiotics past several months, 2014 jaw fracture/surgeries. History of Any Multi-Drug Resistant Organisms: None Reported, MRSA Date of last positivie culture/infection: 04/02/21 MDRO Source:: MRSA EAR Past Surgical History: Hernia Repair Additional Past Surgical History / Comment(s): jaw fracture repositioned then ended up wired 05/04/14, inguinal hernia repair/pt cannot recall laterallity. Past Anesthesia/Blood Transfusion Reactions: No Reported Reaction Past Psychological History: Anxiety, Bipolar, Depression Smoking Status: Current some day smoker Past Alcohol Use History: None Reported - Past Family History Mother Additional Family Medical History / Comment(s): Mother is . Pt does not know her medical history. Father Family Medical History: Diabetes Mellitus, Neurologic Disorder Additional Family Medical History / Comment(s): Parkinson's disease General Exam Limitations: no limitations General appearance: alert, in no apparent distress Head exam: Present: atraumatic, normocephalic Eye exam: Present: normal appearance ENT exam: Present: other (There is a healing surgical incision in the left posterior auricular area. There is no erythema, warmth or other evidence of infection. Trace of serous range.) Neck exam: Present: normal inspection, full ROM. Absent: meningismus Neurological exam: Present: alert Skin exam: Present: warm, dry, intact, normal color. Absent: rash Course Vital Signs 05/01/21 04:14 Temperature 98.1 F Pulse Rate 108 H Respiratory 20 Rate Blood Pressure 143/100 O2 Sat by Pulse 95 Oximetry Disposition Clinical Impression: Ear pain, left Disposition: HOME SELF-CARE Condition: Fair Instructions (If sedation given, give patient instructions): Earache (ED) Is patient prescribed a controlled substance at d/c from ED?: No Referrals: None,Stated [Primary Care Provider] - 1-2 days
[2021-05-01 06:04] VITALS: BP 140/91; PULSE 91; RESP 16
== END 2021-05-01 07:29 | disposition home or self-care (01) ==
LOC: EC 04:09
DX: H92.02 Otalgia, left ear (principal); F41.9 Anxiety disorder, unspecified; F31.9 Bipolar disorder, unspecified; F17.200 Nicotine dependence, unspecified, uncomplicated; Z88.0 Allergy status to penicillin; Z88.1 Allergy status to other antibiotic agents; Z88.2 Allergy status to sulfonamides
CPT/HCPCS: 99282; 96372; J2270

== ENCOUNTER 2021-07-29 08:01 | Emergency (ER) | payer OTHER ==
[2021-07-29 08:05] VITALS: TEMP 98
[2021-07-29] MEDS ORDERED: HYDROmorphone 0.5 MG/0.5 ML SYRINGE IVP STA ×2 (08:13→10:35)
[2021-07-29] MEDS ORDERED: ASPIRIN 81 MG PO STA (08:13)
[2021-07-29] MEDS ORDERED: ONDANSETRON 4 MG/2 ML VIAL IVP STA (08:13)
--- NOTE | 2021-07-29 08:41 | ED ---
Chest Pain HPI - General Chief Complaint: Chest Pain Stated Complaint: Chest pain Time Seen by Provider: 07/29/21 08:05 Source: patient, EMS, RN notes reviewed Mode of arrival: EMS Limitations: no limitations - History of Present Illness Initial Comments: 35-year-old male presents emergency Department chief complaint of chest pain. Patient states pain started yesterday. Patient states it's centralized pain states does hurt take a deep breath feels short of breath. Patient is currently under chemotherapy and radiation treatment for skin cancer of his left side of his face, left ear. Patient states he just finished a course of chemotherapy. He states he is coughing but this is been chronic denies any fevers or chills no night sweats. Patient states that he has no prior cardiac disease he does feel that his heart has been racing rapidly when he gets up and moves. - Related Data Home Medications Medication Instructions Recorded Confirmed Emtricitabine/Tenofov Alafenam 1 tab PO DAILY 07/29/21 07/29/21 [Descovy 200-25 mg Tablet] Famotidine [Pepcid] 20 mg PO DAILY 07/29/21 07/29/21 Gabapentin 600 mg PO TID 07/29/21 07/29/21 HYDROcodone/APAP 10-325MG [[place] 1 tab PO Q6H PRN 07/29/21 07/29/21 10-325] Ondansetron Odt [Zofran Odt] 8 mg PO Q8HR PRN 07/29/21 07/29/21 Prochlorperazine [Compazine] 10 mg PO Q6H PRN 07/29/21 07/29/21 Vitamin B Complex 1 cap PO DAILY 07/29/21 07/29/21 methocarbamoL [Robaxin] 1,000 mg PO TID 07/29/21 07/29/21 Allergies Allergy/AdvReac Type Severity Reaction Status Date / Time Penicillins Allergy Rash/Hives Verified 07/29/21 09:49 sulfamethoxazole Allergy Rash/Hives Verified 07/29/21 09:49 [From Bactrim] trimethoprim [From Bactrim] Allergy Rash/Hives Verified 07/29/21 09:49 vancomycin Allergy Rash/Hives Verified 07/29/21 09:49 Review of Systems ROS Statement: Those systems with pertinent positive or pertinent negative responses have been documented in the HPI. ROS Other: All systems not noted in ROS Statement are negative. EKG Findings - EKG Comments: EKG Findings:: EKG performed at 8:05 sinus tachycardia rate of 100 VT 143 QRS 96 QT / QTC 322/379 Past Medical History Past Medical History: Cancer Additional Past Medical History / Comment(s): Covid positive 04/01/21, L tympanic membrane perforation 6-7 months ago/treated with antibiotics past several months, 2014 jaw fracture/surgeries. History of Any Multi-Drug Resistant Organisms: None Reported, MRSA Date of last positivie culture/infection: 04/02/21 MDRO Source:: MRSA EAR Past Surgical History: Hernia Repair Additional Past Surgical History / Comment(s): jaw fracture repositioned then ended up wired 05/04/14, inguinal hernia repair/pt cannot recall laterallity. Past Anesthesia/Blood Transfusion Reactions: No Reported Reaction Past Psychological History: Anxiety, Bipolar, Depression Smoking Status: Current some day smoker Past Alcohol Use History: None Reported Past Drug Use History: Marijuana - Past Family History Mother Additional Family Medical History / Comment(s): Mother is . Pt does not know her medical history. Father Family Medical History: Diabetes Mellitus, Neurologic Disorder Additional Family Medical History / Comment(s): Parkinson's disease General Exam Limitations: no limitations General appearance: alert, in no apparent distress Head exam: Present: atraumatic, normocephalic, normal inspection Eye exam: Present: normal appearance, PERRL, EOMI. Absent: scleral icterus, conjunctival injection, periorbital swelling ENT exam: Present: mucous membranes moist. Absent: normal exam (Large deformity the left side of the face, removal of the left ear scarring, skin discoloration noted) Neck exam: Present: normal inspection, full ROM. Absent: tenderness, meningismus, lymphadenopathy Respiratory exam: Present: normal lung sounds bilaterally. Absent: respiratory distress, wheezes, rales, rhonchi, stridor Cardiovascular Exam: Present: regular rate, normal rhythm, normal heart sounds. Absent: systolic murmur, diastolic murmur, rubs, gallop, clicks Neurological exam: Present: alert, oriented X3 Skin exam: Present: warm, dry, intact, normal color. Absent: rash Course Vital Signs 07/29/21 07/29/21 08:02 08:59 Temperature 98.0 F Pulse Rate 109 H 84 Respiratory 18 16 Rate Blood Pressure 116/80 109/79 O2 Sat by Pulse 100 100 Oximetry Chest Pain MDM - MDM Patient has mild hypomagnesemia. Patient's troponin is negative, EKG does not reveal any acute changes. Patient his d-dimer was elevated and which CT was performed negative for PE. Patient has pleuritic chest pain may related to ongoing cancer treatment. Patient informed that his white count is 1.2 that he is neutropenic he states he has been on sure how low. He is afebrile. We discussed close follow-up with oncology tomorrow for repeat labs and return for any evidence of fever or cold-like symptoms. Disposition Clinical Impression: Chest wall pain, Hypomagnesemia Disposition: HOME SELF-CARE Condition: Stable Instructions (If sedation given, give patient instructions): Chest Wall Pain (ED) Additional Instructions: Please return to the Emergency Department if symptoms worsen or any other concerns. Is patient prescribed a controlled substance at d/c from ED?: No Referrals: None,Stated [Primary Care Provider] - 1-2 days Time of Disposition: 10:37
--- NOTE | 2021-07-29 08:42 | XR ---
EXAMINATION TYPE: XR chest 2V DATE OF EXAM: 07/29/2021 COMPARISON: To 822 INDICATION: Chest pain TECHNIQUE: Frontal and lateral views of the chest are obtained. FINDINGS: The heart size is normal. The pulmonary vasculature is normal. The lungs are clear. IMPRESSION: 1. No acute pulmonary process.
[2021-07-29 08:48] LABS: Anisocytosis Slight; HGB 12.1 gm/dL (13.0-17.5); MCH 25.4 pg (25.0-35.0); MCHC 31.8 g/dL (31.0-37.0); MCV 79.9 fL (80.0-100.0); Mean Platelet Volume 9.3; Microcytosis Slight; RBC 4.76 m/uL (4.30-5.90); RDW 18.5 % (11.5-15.5)
[2021-07-29 09:02] LABS: WBC 1.2 k/uL (3.8-10.6)
[2021-07-29 09:04] LABS: ALT 11 U/L (4-49); AST 15 U/L (17-59); African American GFR (CKD) >90 (>60 ml/min/1.73 sqM); Albumin 4.1 g/dL (3.5-5.0); Alkaline Phosphatase 68 U/L (38-126); Anion Gap 16 mmol/L; Blood Urea Nitrogen 11 mg/dL (9-20); Carbon Dioxide 20 mmol/L (22-30); Chloride 99 mmol/L (98-107); Glucose 89 mg/dL (74-99); Lipase 25 U/L (23-300); Magnesium 1.5 mg/dL (1.6-2.3); Non-African American GFR(CKD) >90 (>60 ml/min/1.73 sqM); Potassium 3.6 mmol/L (3.5-5.1); Sodium 135 mmol/L (137-145); Total Bilirubin 0.5 mg/dL (0.2-1.3)
[2021-07-29 09:08] LABS: INR 1.1 (<1.2); Partial Thromboplastin Time 23.9 sec (22.0-30.0)
[2021-07-29 09:16] LABS: Platelet Count 74 k/uL (150-450)
[2021-07-29 09:24] LABS: Neutrophils % (M) 24 %
[2021-07-29 09:25] LABS: Band Neutrophils % 1 %; Eosinophils # (M) 0.01 k/uL (0-0.7); Lymphocytes # (M) 0.48 k/uL (1.0-4.8); Monocytes # (M) 0.41 k/uL (0-1.0); Nucleated Red Blood Cells 0 /100 WBC (0-0); Total Cells Counted 100
--- NOTE | 2021-07-29 10:26 | CT ---
CT CHEST FOR PULMONARY EMBOLISM. EXAMINATION TYPE: CT chest angio for PE DATE OF EXAM: 07/29/2021 INDICATION: chest pain, shortness of breath CT DLP: 236.2 mGycm, Automated exposure control for dose reduction was used. CONTRAST: Patient injected with 100, wasted 37 mL of Isovue 300. COMPARISON: None TECHNIQUE: CT of the chest is performed on a spiral scan at 2 mm thick sections. Study is performed with intravenous contrast timed for evaluation for pulmonary embolism. This will limit additional po rtions of the evaluation. 3-D MIP images reconstructed by the technologist are reviewed on the compu ter in the coronal and sagittal planes. FINDINGS: No persistent filling defects are evident to suggest an acute pulmonary embolism. No mediastinal or hilar adenopathy enlarged by CT criteria is evident. The ascending aorta diameter at the level of the main pulmonary artery is 3.2 cm. The main pulmonary artery diameter at the bifur cation is 2.7 cm. Lung windows are clear. Limited CT section through the upper abdomen are unremarkable. IMPRESSIONS: 1. No acute pulmonary embolism. 2. No acute pulmonary process.
[2021-07-29] MEDS ORDERED: SODIUM CHLORIDE 0.9% 500 ML 500 ML IV ONE (10:35)
[2021-07-29] MEDS ORDERED: MAGNESIUM SULFATE-D5W PMX 1 GM in DEXTROSE/WATER 1 100ML.BAG IVPB ONE (10:35)
[2021-07-29] MEDS ORDERED: SODIUM CHLORIDE 0.9% 1,000 ML IV ONE (10:35)
[2021-07-29 11:52] VITALS: BP 103/69; PULSE 79; RESP 18
== END 2021-07-29 12:06 | disposition home or self-care (01) ==
LOC: EC 08:01
DX: R07.89 Other chest pain (principal); E83.42 Hypomagnesemia; F17.200 Nicotine dependence, unspecified, uncomplicated; Z86.16 Personal history of COVID-19; Z88.1 Allergy status to other antibiotic agents; Z88.0 Allergy status to penicillin; Z88.2 Allergy status to sulfonamides
CPT/HCPCS: 36415; 93005; 85379; 83880; 80053; 83690; 83735; 84484; 85025; 85610; 85730; 71046; 71275; 99285; 96365; 96375; 96376; J2405; J3475; J1170; Q9967

== ENCOUNTER 2022-01-11 10:00 | Emergency (ER) | payer OTHER ==
[2022-01-11 10:15] VITALS: RESP 18
[2022-01-11] MEDS ORDERED: ONDANSETRON 4 MG/2 ML VIAL IVP STA ×3 (10:18→14:42)
[2022-01-11] MEDS ORDERED: MORPHINE SULFATE 4 MG/ML SYRINGE IVP STA (10:18)
--- NOTE | 2022-01-11 10:21 | ED ---
General Adult HPI - General Chief complaint: Syncope Stated complaint: Syncope Time Seen by Provider: 01/11/22 10:03 Source: patient, RN notes reviewed Mode of arrival: EMS Limitations: no limitations - History of Present Illness Initial comments: Patient is a pleasant 36-year-old male presenting to the emergency department following reported syncopal episode. Patient does not recall the episode. Patient states otherwise he feels fine and does not have complaints. Patient does have some left-sided face and head discomfort and nausea however has had those persistent since surgery on Thursday. Patient does have history of ear and brain tumor or section followed by plate placement, followed by infection. Patient just had plates removed on Thursday. No fevers. - Related Data Home Medications Medication Instructions Recorded Confirmed Emtricitabine/Tenofov Alafenam 1 tab PO DAILY 07/29/21 07/29/21 [Descovy 200-25 mg Tablet] Famotidine [Pepcid] 20 mg PO DAILY 07/29/21 07/29/21 Gabapentin 600 mg PO TID 07/29/21 07/29/21 HYDROcodone/APAP 10-325MG [[place] 1 tab PO Q6H PRN 07/29/21 07/29/21 10-325] Ondansetron Odt [Zofran Odt] 8 mg PO Q8HR PRN 07/29/21 07/29/21 Prochlorperazine [Compazine] 10 mg PO Q6H PRN 07/29/21 07/29/21 Vitamin B Complex 1 cap PO DAILY 07/29/21 07/29/21 methocarbamoL [Robaxin] 1,000 mg PO TID 07/29/21 07/29/21 Allergies Allergy/AdvReac Type Severity Reaction Status Date / Time Penicillins Allergy Rash/Hives Verified 01/11/22 10:16 sulfamethoxazole Allergy Rash/Hives Verified 01/11/22 10:16 [From Bactrim] trimethoprim [From Bactrim] Allergy Rash/Hives Verified 01/11/22 10:16 vancomycin Allergy Rash/Hives Verified 01/11/22 10:16 Review of Systems ROS Statement: Those systems with pertinent positive or pertinent negative responses have been documented in the HPI. ROS Other: All systems not noted in ROS Statement are negative. Constitutional: Denies: fever Eyes: Denies: eye pain ENT: Reports: as per HPI Respiratory: Denies: cough, dyspnea Cardiovascular: Denies: chest pain Endocrine: Denies: fatigue Gastrointestinal: Reports: nausea. Denies: abdominal pain, vomiting Genitourinary: Denies: dysuria Musculoskeletal: Denies: back pain Skin: Denies: rash Neurological: Denies: confusion Past Medical History Past Medical History: Cancer Additional Past Medical History / Comment(s): Covid positive 04/01/21, L tympanic membrane perforation 6-7 months ago/treated with antibiotics past several thu jaw fracture/surgeries.CA left ear. and Brain, History of Any Multi-Drug Resistant Organisms: None Reported, MRSA Date of last positivie culture/infection: 04/02/21 MDRO Source:: MRSA EAR Past Surgical History: Ear Surgery, Hernia Repair Additional Past Surgical History / Comment(s): jaw fracture repositioned then ended up wired 05/04/14, inguinal hernia repair/pt cannot recall laterallity. Titanium plate removed from left side of head 01/06/22. Left ear removed due to brain cancer 04/2021. Past Anesthesia/Blood Transfusion Reactions: No Reported Reaction Past Psychological History: Anxiety, Bipolar, Depression Smoking Status: Current every day smoker Past Alcohol Use History: None Reported Past Drug Use History: Marijuana - Past Family History Mother Additional Family Medical History / Comment(s): Mother is . Pt does not know her medical history. Father Family Medical History: Diabetes Mellitus, Neurologic Disorder Additional Family Medical History / Comment(s): Parkinson's disease General Exam Limitations: no limitations General appearance: alert, in no apparent distress Head exam: Present: other (Left temporal ear and facial postoperative changes, wound clean and dry and intact. No erythema. There is packing present. No drainage.) Eye exam: Present: normal appearance ENT exam: Present: normal oropharynx Neck exam: Present: normal inspection. Absent: tenderness Respiratory exam: Present: normal lung sounds bilaterally Cardiovascular Exam: Present: regular rate, normal rhythm Expanded Peripheral pulses: 2+: Radial (R), Radial (L), Posterior Tibialis (R), Posterior Tibialis (L) GI/Abdominal exam: Present: soft. Absent: tenderness, guarding Extremities exam: Present: normal inspection. Absent: pedal edema, calf tenderness Neurological exam: Present: alert, oriented X3, CN II-XII intact (Except for some limitation with facial movement on the left side which patient states has been chronic since operation) Expanded Neurological exam: Present: protecting the airway Speech: Present: fluid speech Cranial nerves: EOM's Intact: Normal, Facial Sensation: Normal Sensory exam: Upper Extremity Light Touch: Normal, Lower Extremity Light Touch: Normal Motor strength exam: RUE: 5, LUE: 5, RLE: 5, LLE: 5 Eye Response: (4) open spontaneously Motor Response: (6) obeys commands Verbal Response: (5) oriented Psychiatric exam: Present: normal affect, normal mood Skin exam: Present: normal color Course Vital Signs 01/11/22 01/11/22 10:03 12:13 Temperature 98.7 F Pulse Rate 94 66 Respiratory 18 18 Rate Blood Pressure 110/77 102/69 O2 Sat by Pulse 98 98 Oximetry EKG Findings - EKG Comments: EKG Findings:: Sinus rhythm rate 77. W[place] 159. QRS 11. QT 368. QTC 400. Right axis. Normal QRS. No acute ST change. Medical Decision Making - Medical Decision Making Patient reevaluated and resting comfortably in bed. Exam unchanged. Patient is updated on results. Case was discussed with surgeon at [facility], Dr. Jordan who was somewhat familiar with this patient and does review the chart. Patient evaluation and presentation and CT results are all reviewed with him. He is comfortable with discharge home. They do have an appointment to reevaluate the patient this week. Patient is comfortable with this plan and agreeable to return if worsening symptoms - Lab Data Result diagrams: 01/11/22 10:01/11/22 10: Lab Results 01/11/22 01/11/22 01/11/22 Range/Units 10:26 10:26 10:26 WBC 6.2 (3.8-10.6) k/uL RBC 4.77 (4.30-5.90) m/uL Hgb 13.6 (13.0-17.5) gm/dL Hct 40.2 (39.0-53.0) % MCV 84.2 (80.0-100.0) fL MCH 28.6 (25.0-35.0) pg MCHC 33.9 (31.0-37.0) g/dL RDW 13.8 (11.5-15.5) % Plt Count 153 (150-450) k/uL MPV 8.3 Neutrophils % 78 % Lymphocytes % 8 % Monocytes % 11 % Eosinophils % 1 % Basophils % 0 % Neutrophils # 4.8 (1.3-7.7) k/uL Lymphocytes # 0.5 L (1.0-4.8) k/uL Monocytes # 0.7 (0-1.0) k/uL Eosinophils # 0.1 (0-0.7) k/uL Basophils # 0.0 (0-0.2) k/uL PT 10.7 (9.0-12.0) sec INR 1.0 (<1.2) APTT 23.8 (22.0-30.0) sec D-Dimer 0.83 H (<0.60) mg/L FEU Sodium 137 (137-145) mmol/L Potassium 4.0 (3.5-5.1) mmol/L Chloride 106 (98-107) mmol/L Carbon Dioxide 23 (22-30) mmol/L Anion Gap 8 mmol/L BUN 16 (9-20) mg/dL Creatinine 0.84 (0.66-1.25) mg/dL Est GFR (CKD-EPI)AfAm >90 (>60 ml/min/1.73 sqM) Est GFR (CKD-EPI)NonAf >90 (>60 ml/min/1.73 sqM) Glucose 94 (74-99) mg/dL Calcium 9.0 (8.4-10.2) mg/dL Magnesium 2.3 (1.6-2.3) mg/dL Total Bilirubin 0.4 (0.2-1.3) mg/dL AST 17 (17-59) U/L ALT 14 (4-49) U/L Alkaline Phosphatase 68 (38-126) U/L Troponin I (0.000-0.034) ng/mL Total Protein 6.9 (6.3-8.2) g/dL Albumin 4.3 (3.5-5.0) g/dL 01/11/22 Range/Units 10:26 WBC (3.8-10.6) k/uL RBC (4.30-5.90) m/uL Hgb (13.0-17.5) gm/dL Hct (39.0-53.0) % MCV (80.0-100.0) fL MCH (25.0-35.0) pg MCHC (31.0-37.0) g/dL RDW (11.5-15.5) % Plt Count (150-450) k/uL MPV Neutrophils % % Lymphocytes % % Monocytes % % Eosinophils % % Basophils % % Neutrophils # (1.3-7.7) k/uL Lymphocytes # (1.0-4.8) k/uL Monocytes # (0-1.0) k/uL Eosinophils # (0-0.7) k/uL Basophils # (0-0.2) k/uL PT (9.0-12.0) sec INR (<1.2) APTT (22.0-30.0) sec D-Dimer (<0.60) mg/L FEU Sodium (137-145) mmol/L Potassium (3.5-5.1) mmol/L Chloride (98-107) mmol/L Carbon Dioxide (22-30) mmol/L Anion Gap mmol/L BUN (9-20) mg/dL Creatinine (0.66-1.25) mg/dL Est GFR (CKD-EPI)AfAm (>60 ml/min/1.73 sqM) Est GFR (CKD-EPI)NonAf (>60 ml/min/1.73 sqM) Glucose (74-99) mg/dL Calcium (8.4-10.2) mg/dL Magnesium (1.6-2.3) mg/dL Total Bilirubin (0.2-1.3) mg/dL AST (17-59) U/L ALT (4-49) U/L Alkaline Phosphatase (38-126) U/L Troponin I <0.012 (0.000-0.034) ng/mL Total Protein (6.3-8.2) g/dL Albumin (3.5-5.0) g/dL - Radiology Data Radiology results: report reviewed (CT angios chest shows no evidence of pulmonary embolism. Computed tomography scan of the brain shows left temporal encephalomalacia. Postoperative changes versus lesions may be present. Linear subdural density left temporal region. Likely postsurgical. Tiny subdural difficult to exclude althoug), image reviewed (Chest x-ray also interpreted by myself reveals no acute process.) Disposition Clinical Impression: Syncope, Headache Disposition: HOME SELF-CARE Condition: Stable Instructions (If sedation given, give patient instructions): Syncope (ED), Acute Headache (ED) Additional Instructions: Please do follow-up with your surgical team this week as planned. Please do also follow-up with your primary care physician and oncologist this week. Return for passing out, increased headache, weakness, uncontrolled vomiting, fever or redness, worsening symptoms or any other concerns. Is patient prescribed a controlled substance at d/c from ED?: No Referrals: Nonstaff,Physician [Primary Care Provider] - 1-2 days Gregorio Owens MD [STAFF PHYSICIAN] - 1-2 days Time of Disposition: 14:48
[2022-01-11 10:39] LABS: Basophils % (A) 0 %; Eosinophils # (A) 0.1 k/uL (0-0.7); Eosinophils % (A) 1 %; HCT 40.2 % (39.0-53.0); HGB 13.6 gm/dL (13.0-17.5); Lymphocytes # (A) 0.5 k/uL (1.0-4.8); Lymphocytes % (A) 8 %; MCH 28.6 pg (25.0-35.0); MCHC 33.9 g/dL (31.0-37.0); MCV 84.2 fL (80.0-100.0); Mean Platelet Volume 8.3; Monocytes # (A) 0.7 k/uL (0-1.0); Monocytes % (A) 11 %; Neutrophils # (A) 4.8 k/uL (1.3-7.7); Neutrophils % (A) 78 %; Platelet Count 153 k/uL (150-450); RBC 4.77 m/uL (4.30-5.90); RDW 13.8 % (11.5-15.5); WBC 6.2 k/uL (3.8-10.6)
[2022-01-11 10:56] LABS: ALT 14 U/L (4-49); AST 17 U/L (17-59); African American GFR (CKD) >90 (>60 ml/min/1.73 sqM); Albumin 4.3 g/dL (3.5-5.0); Alkaline Phosphatase 68 U/L (38-126); Anion Gap 8 mmol/L; Blood Urea Nitrogen 16 mg/dL (9-20); Carbon Dioxide 23 mmol/L (22-30); Chloride 106 mmol/L (98-107); Glucose 94 mg/dL (74-99); Magnesium 2.3 mg/dL (1.6-2.3); Non-African American GFR(CKD) >90 (>60 ml/min/1.73 sqM); Sodium 137 mmol/L (137-145); Total Bilirubin 0.4 mg/dL (0.2-1.3); Total Protein 6.9 g/dL (6.3-8.2)
[2022-01-11 11:09] LABS: Partial Thromboplastin Time 23.8 sec (22.0-30.0); Prothrombin Time 10.7 sec (9.0-12.0)
--- NOTE | 2022-01-11 11:22 | CT ---
EXAMINATION TYPE: CT brain wo con DATE OF EXAM: 01/11/2022 COMPARISON: 04/01/2021 HISTORY: syncope. recent sx to remove plates from left side of skull. pt has hx of brain ca and remov al of left ear CT DLP: 1114.[address] of the brain was performed. Lack of contrast limits evaluation. There is evidence of left temporal parietal craniotomy as well as mastoidectomy and removal of the ex ternal left ear. There is extensive streak artifact overlying the left orbit and extending into porti ons of the brain which limits evaluation. There is focal encephalomalacia left temporal lobe with 2 f oci of isodensity. This could be related to postoperative change however underlying lesions are not e xcluded. Additional possibility is that of nonacute hemorrhage. I do not see evidence for acute intra parenchymal hemorrhage at this time. Linear Subdural density left temporal region image 24 and 31 measuring maximal 3 mm thickness is like ly related to postsurgical subdural change. Given slight hyperdensity tiny subdural hemorrhage is dif ficult to exclude although again I believe this is likely postoperative in nature. Otherwise the ventricles, basal cisterns and sulci overlying the cerebral convexities demonstrate a n ormal appearance. No mass effects are seen. Osseous calvarium is intact. If symptoms persist consider MRI as clinically warranted. IMPRESSION: 1. There is focal encephalomalacia left temporal lobe with 2 foci of isodensity. This could be relat ed to postoperative change however underlying lesions are not excluded. Additional possibility is elke t of nonacute hemorrhage. 2.Linear Subdural density left temporal region image 24 and 31 measuring maximal 3 mm thickness is li krista related to postsurgical subdural change. Given slight hyperdensity tiny subdural hemorrhage is d ifficult to exclude although again I believe this is likely postoperative in nature.
--- NOTE | 2022-01-11 11:28 | XR ---
EXAMINATION TYPE: XR chest 2V DATE OF EXAM: 01/11/2022 COMPARISON: 07/29/2021 HISTORY: Chest pain TECHNIQUE: Frontal and lateral views of the chest are obtained. FINDINGS: There is no focal air space opacity. Right-sided MediPort catheter is unchanged in position. No evidence for pneumothorax. No pleural effusion. The cardiac silhouette size is within normal limits. The osseous structures are grossly intact. Surgical clips about the left neck. IMPRESSION: 1. No acute cardiopulmonary process.
[2022-01-11] MEDS ORDERED: HYDROmorphone 1 MG/ML 1 ML SYRINGE IVP STA ×2 (11:42→14:43)
--- NOTE | 2022-01-11 13:11 | CT ---
EXAMINATION TYPE: CT angio chest DATE OF EXAM: 01/11/2022 COMPARISON: 07/29/2021 HISTORY: syncope. elevated d-dimer CT DLP: 258.7 mGycm CONTRAST: CT chest with contrast and 3D reconstruction with MIP imaging is performed with IV Contrast, patient injected with 56 mL of Isovue 370. Contrast-enhanced CT of the chest was performed through the course of the pulmonary arteries with valentin g and mediastinal window settings submitted. 3D reconstruction with MIP imaging was also performed. PULMONARY ARTERIES: The pulmonary arteries and their major tributaries are patent. I do not see hilton dence for sizable filling defect to suggest pulmonary embolic process. LUNGS: The lungs are clear and free of infiltrate. No evidence for atelectasis. No pulmonary nodule or mass is detected. No pleural effusion. MEDIASTINUM: Thoracic aorta is of normal caliber,however, evaluation is limited given timing of the contrast bolus. If there is concern for thoracic aortic pathology consider CARO. Correlate clinicall y . The heart is not enlarged. No evidence for mediastinal mass. No mediastinal lymph nodes greater than 1cm. HILAR STRUCTURES: No evidence for mass. No hilar lymph nodes greater than 1 cm. UPPER ABDOMEN: No significant abnormality is seen. IMPRESSION: 1. No evidence for Pulmonary embolism at this time.
[2022-01-11 15:22] VITALS: BP 104/65; PULSE 67; TEMP 98
== END 2022-01-11 15:22 | disposition home or self-care (01) ==
LOC: EC 10:00
DX: R55 Syncope and collapse (principal); R51.9 Headache, unspecified; F41.9 Anxiety disorder, unspecified; F32.A Depression, unspecified; F17.200 Nicotine dependence, unspecified, uncomplicated; Z88.0 Allergy status to penicillin; Z88.1 Allergy status to other antibiotic agents; Z88.2 Allergy status to sulfonamides
CPT/HCPCS: 36415; 93005; 85379; 80053; 83735; 84484; 85025; 85610; 85730; 71046; 70450; 71275; 99285; 96374; 96375 ×4; 96376; J2270; J2405; J1170; Q9967

== ENCOUNTER 2022-05-22 13:09 | Emergency (ER) | payer OTHER ==
[2022-05-22] MEDS ORDERED: SODIUM CHLORIDE 0.9% 500 ML 500 ML IV ONE (13:41)
--- NOTE | 2022-05-22 14:04 | ED ---
General Adult HPI - General Source: patient, EMS, RN notes reviewed, old records reviewed Mode of arrival: EMS Limitations: no limitations <Joshua Sherman - Last Filed: 05/22/22 14:26> <Chip Yu - Last Filed: 05/24/22 08:16> - General Chief complaint: Abdominal Pain Stated complaint: Abd Pain Time Seen by Provider: 05/22/22 13:31 - History of Present Illness Initial comments: 36-year-old male presenting for evaluation of right lower quadrant abdominal pain. Pain is been present for the past several days and has been worsening. He states that initially was in his mid abdomen and now it is in his right lower quadrant. He also complains of some dysuria. No fever. He's had nausea without vomiting. Normal bowel movement. (Joshua Sherman) - Related Data Home Medications Medication Instructions Recorded Confirmed HYDROcodone/APAP 10-325MG [[place] 1 tab PO Q4H PRN 07/29/21 05/22/22 10-325] methocarbamoL [Robaxin] 1,000 mg PO TID 07/29/21 05/22/22 Buprenorphine [[place] 15 MCG/HR] 1 patch TRANSDERM WE 05/22/22 05/22/22 Gabapentin [Neurontin] 800 mg PO TID 05/22/22 05/22/22 Previous Rx's Medication Instructions Recorded Tamsulosin [Flomax] 0.4 mg PO DAILY #14 cap 05/22/22 Allergies Allergy/AdvReac Type Severity Reaction Status Date / Time Penicillins Allergy Rash/Hives Verified 05/22/22 15:09 sulfamethoxazole Allergy Rash/Hives Verified 05/22/22 15:09 [From Bactrim] trimethoprim [From Bactrim] Allergy Rash/Hives Verified 05/22/22 15:09 vancomycin Allergy Rash/Hives Verified 05/22/22 15:09 Review of Systems ROS Other: All systems not noted in ROS Statement are negative. <Joshua Sehrman - Last Filed: 05/22/22 14:26> ROS Other: All systems not noted in ROS Statement are negative. <Chip Yu - Last Filed: 05/24/22 08:16> ROS Statement: Those systems with pertinent positive or pertinent negative responses have been documented in the HPI. Past Medical History Past Medical History: Cancer Additional Past Medical History / Comment(s): Covid positive 04/01/21, L tympanic membrane perforation 6-7 months ago/treated with antibiotics past several months, 2014 jaw fracture/surgeries.CA left ear. and Brain, History of Any Multi-Drug Resistant Organisms: None Reported, MRSA Date of last positivie culture/infection: 04/02/21 MDRO Source:: MRSA EAR Past Surgical History: Ear Surgery, Hernia Repair Additional Past Surgical History / Comment(s): jaw fracture repositioned then ended up wired 05/04/14, inguinal hernia repair/pt cannot recall laterallity. Titanium plate removed from left side of head 01/06/22. Left ear removed due to brain cancer 04/2021. Past Anesthesia/Blood Transfusion Reactions: No Reported Reaction Past Psychological History: Anxiety, Bipolar, Depression Smoking Status: Current every day smoker Past Alcohol Use History: None Reported Past Drug Use History: None Reported, Marijuana - Past Family History Mother Additional Family Medical History / Comment(s): Mother is . Pt does not know her medical history. Father Family Medical History: Diabetes Mellitus, Neurologic Disorder Additional Family Medical History / Comment(s): Parkinson's disease <Joshua Sherman N - Last Filed: 05/22/22 14:26> General Exam Limitations: no limitations General appearance: alert, in no apparent distress Head exam: Present: other (Prior head neck cancer) Eye exam: Present: normal appearance, PERRL ENT exam: Present: normal exam Neck exam: Present: normal inspection. Absent: tenderness, meningismus Respiratory exam: Present: normal lung sounds bilaterally. Absent: respiratory distress, wheezes Cardiovascular Exam: Present: regular rate, normal rhythm GI/Abdominal exam: Present: soft, tenderness (Right Lower quadrant). Absent: distended exam: Present: normal inspection. Absent: testicular tenderness, scrotal swelling Extremities exam: Present: normal inspection, normal capillary refill. Absent: pedal edema Neurological exam: Present: alert. Absent: motor sensory deficit Skin exam: Present: warm, dry, intact <Joshua Sherman - Last Filed: 05/22/22 14:26> Course <Joshua Sherman - Last Filed: 05/22/22 14:26> Vital Signs 05/22/22 05/22/22 05/22/22 13:37 17:20 18:15 Temperature 98.0 F Pulse Rate 61 56 L 45 L Respiratory 16 18 Rate Blood Pressure 131/70 121/77 O2 Sat by Pulse 100 100 Oximetry - Reevaluation(s) Reevaluation #1: 05/22/22 1500 This patient's care signed out at shift change to Dr Yu awaiting laboratory testing and computed tomography scan of the abdomen pelvis. (Joshua Sherman) Medical Decision Making - Lab Data Result diagrams: 05/22/22 14:42 05/22/22 14:42 <Chip Yu - Last Filed: 05/24/22 08:16> - Medical Decision Making This patient is a 36-year-old man with right lower quadrant pain radiating to testicle. He was signed out to me pending his studies. The studies show that there is hematuria. The patient did go for computed tomography scan which was interpreted by radiologist as showing normal appendix. No stone was readily apparent but there was contrast in the ureter. The patient states he has had previous kidney stone and this does feel similar. He has had relief with medication. We discussed appropriate further care and follow-up and patient would like to go home at this point. Discussed appropriate further care and follow-up including that the patient must have reevaluation if his symptoms do not resolve and also to have the urine rechecked and ensure that the hematuria resolves. Was pt. sent in by a medical professional or institution (, [facility], GEOTHERMAL OPERATING ENGINEER, urgent care, hospital, or snf...) When possible be specific @ -[No] Did you speak to anyone other than the patient for history (EMS, parent, family, police, friend...)? What history was obtained from this source @ -[No] Did you review nursing and triage notes (agree or disagree)? Why? @ -[I reviewed and agree with nursing and triage notes] Were old charts reviewed (outside hosp., previous admission, EMS record, old EKG, old radiological studies, urgent care reports/EKG's, snf records)? Report findings @ -[No old charts were reviewed] Differential Diagnosis (chest pain, altered mental status, abdominal pain women, abdominal pain men, vaginal bleeding, weakness, fever, dyspnea, syncope, headache, dizziness, GI bleed, back pain, seizure, CVA, palpatations, mental health, musculoskeletal)? @ -[Differential Abdominal Pain Men: Appendicitis, cholecystitis, diverticulosis, ischemic bowel, pancreatitis, hepatitis, UTI, gastroenteritis, AAA, incarcerated hernia, bowel obstruction, constipation, inflammatory bowel, hepatitis, peptic ulcer disease, splenic infarction, perforated viscus, testicular torsion, this is not meant to be an all-inclusive list EKG interpreted by me (3pts min.). @ -[As above] X-rays interpreted by me (1pt min.). @ -[None done] CT interpreted by me (1pt min.). @ -[None done] U/S interpreted by me (1pt. min.). @ -[None done] What testing was considered but not performed or refused? (CT, X-rays, U/S, labs)? Why? @ -[None] What meds were considered but not given or refused? Why? @ -[None] Did you discuss the management of the patient with other professionals (professionals i.e. , PA, GEOTHERMAL OPERATING ENGINEER, lab, RT, psych nurse, social media director, pick up, teacher, information systems security officer, pillowcase cleaner)? Give summary @ -[No] Was smoking cessation discussed for >3mins.? @ -[No] Was critical care preformed (if so, how long)? @ -[No] Were there social determinants of health that impacted care today? How? (Homelessness, low income, unemployed, alcoholism, drug addiction, transportation, low edu. Level, literacy, decrease access to med. care, nursing home, rehab)? @ -[No] Was there de-escalation of care discussed even if they declined (Discuss DNR or withdrawal of care, Hospice)? DNR status @ -[No] What co-morbidities impacted this encounter? (DM, HTN, Smoking, COPD, CAD, Canc er, CVA, ARF, Chemo, Hep., AIDS, mental health diagnosis, sleep apnea, morbid obesity)? @ -[None] Was patient admitted / discharged? Hospital course, mention meds given and route, prescriptions, significant lab abnormalities, going to OR and other pertinent info. @ -[Discharged Undiagnosed new problem with uncertain prognosis? @ -[No] Drug Therapy requiring intensive monitoring for toxicity (Heparin, Nitro, Insulin, Cardizem)? @ -[No] Were any procedures done? @ -[No] Diagnosis/symptom? @ -[Acute abdominal pain Hematuria Probable kidney stone, acute Acute, or Chronic, or Acute on Chronic? @ -[default] Uncomplicated (without systemic symptoms) or Complicated (systemic symptoms)? @ -[Uncomplicated Side effects of treatment? @ -[No] Exacerbation, Progression, or Severe Exacerbation? @ -[No] Poses a threat to life or bodily function? How? (Chest pain, [place], [place], pneumonia, PE, COPD, DKA, ARF, appy, cholecystitis, CVA, Diverticulitis, Homicidal, Suicidal, threat to staff... and all critical care pts) @ -[No] (Chip Yu) - Lab Data Lab Results 05/22/22 05/22/22 05/22/22 Range/Units 14:42 14:42 14:42 WBC 2.9 L (3.8-10.6) k/uL RBC 4.98 (4.30-5.90) m/uL Hgb 13.5 (13.0-17.5) gm/dL Hct 41.3 (39.0-53.0) % MCV 82.9 (80.0-100.0) fL MCH 27.0 (25.0-35.0) pg MCHC 32.6 (31.0-37.0) g/dL RDW 14.1 (11.5-15.5) % Plt Count 117 L (150-450) k/uL MPV 8.4 Neutrophils % 55 % Lymphocytes % 31 % Monocytes % 8 % Eosinophils % 3 % Basophils % 0 % Neutrophils # 1.6 (1.3-7.7) k/uL Lymphocytes # 0.9 L (1.0-4.8) k/uL Monocytes # 0.2 (0-1.0) k/uL Eosinophils # 0.1 (0-0.7) k/uL Basophils # 0.0 (0-0.2) k/uL PT 11.1 (9.0-12.0) sec INR 1.1 (<1.2) APTT 23.7 (22.0-30.0) sec Sodium (137-145) mmol/L Potassium (3.5-5.1) mmol/L Chloride (98-107) mmol/L Carbon Dioxide (22-30) mmol/L Anion Gap mmol/L BUN (9-20) mg/dL Creatinine (0.66-1.25) mg/dL Est GFR (CKD-EPI)AfAm (>60 ml/min/1.73 sqM) Est GFR (CKD-EPI)NonAf (>60 ml/min/1.73 sqM) Glucose (74-99) mg/dL Calcium (8.4-10.2) mg/dL Total Bilirubin (0.2-1.3) mg/dL AST (17-59) U/L ALT (4-49) U/L Alkaline Phosphatase (38-126) U/L Total Protein (6.3-8.2) g/dL Albumin (3.5-5.0) g/dL Lipase (23-300) U/L Urine Color Yellow Urine Appearance Clear (Clear) Urine pH 5.5 (5.0-8.0) Ur Specific [place] 1.019 (1.001-1.035) Urine Protein Trace H (Negative) Urine Glucose (UA) Negative (Negative) Urine Ketones Negative (Negative) Urine Blood Large H (Negative) Urine Nitrite Negative (Negative) Urine Bilirubin Negative (Negative) Urine Urobilinogen <2.0 (<2.0) mg/dL Ur Leukocyte Esterase Negative (Negative) Urine RBC >182 H (0-5) /hpf Urine WBC 2 (0-5) /hpf Urine Mucus Few H (None) /hpf 05/22/22 Range/Units 14:42 WBC (3.8-10.6) k/uL RBC (4.30-5.90) m/uL Hgb (13.0-17.5) gm/dL Hct (39.0-53.0) % MCV (80.0-100.0) fL MCH (25.0-35.0) pg MCHC (31.0-37.0) g/dL RDW (11.5-15.5) % Plt Count (150-450) k/uL MPV Neutrophils % % Lymphocytes % % Monocytes % % Eosinophils % % Basophils % % Neutrophils # (1.3-7.7) k/uL Lymphocytes # (1.0-4.8) k/uL Monocytes # (0-1.0) k/uL Eosinophils # (0-0.7) k/uL Basophils # (0-0.2) k/uL PT (9.0-12.0) sec INR (<1.2) APTT (22.0-30.0) sec Sodium 139 (137-145) mmol/L Potassium 4.5 (3.5-5.1) mmol/L Chloride 108 H (98-107) mmol/L Carbon Dioxide 24 (22-30) mmol/L Anion Gap 7 mmol/L BUN 6 L (9-20) mg/dL Creatinine 0.75 (0.66-1.25) mg/dL Est GFR (CKD-EPI)AfAm >90 (>60 ml/min/1.73 sqM) Est GFR (CKD-EPI)NonAf >90 (>60 ml/min/1.73 sqM) Glucose 77 (74-99) mg/dL Calcium 8.8 (8.4-10.2) mg/dL Total Bilirubin 0.5 (0.2-1.3) mg/dL AST 17 (17-59) U/L ALT 13 (4-49) U/L Alkaline Phosphatase 69 (38-126) U/L Total Protein 7.2 (6.3-8.2) g/dL Albumin 4.4 (3.5-5.0) g/dL Lipase 29 (23-300) U/L Urine Color Urine Appearance (Clear) Urine pH (5.0-8.0) Ur Specific [place] (1.001-1.035) Urine Protein (Negative) Urine Glucose (UA) (Negative) Urine Ketones (Negative) Urine Blood (Negative) Urine Nitrite (Negative) Urine Bilirubin (Negative) Urine Urobilinogen (<2.0) mg/dL Ur Leukocyte Esterase (Negative) Urine RBC (0-5) /hpf Urine WBC (0-5) /hpf Urine Mucus (None) /hpf Disposition <Joshua Sherman - Last Filed: 05/22/22 14:26> Is patient prescribed a controlled substance at d/c from ED?: No <Chip Yu - Last Filed: 05/24/22 08:16> Clinical Impression: Renal colic on right side Disposition: HOME SELF-CARE Condition: Good Instructions (If sedation given, give patient instructions): Abdominal Pain (ED) Prescriptions: Tamsulosin [Flomax] 0.4 mg PO DAILY #14 cap Referrals: Nonstaff,Physician [Primary Care Provider] - 1-2 days Nii Taylor MD [STAFF PHYSICIAN] - 1-2 days
[2022-05-22 14:59] LABS: Basophils % (A) 0 %; Eosinophils # (A) 0.1 k/uL (0-0.7); Eosinophils % (A) 3 %; HCT 41.3 % (39.0-53.0); HGB 13.5 gm/dL (13.0-17.5); Lymphocytes # (A) 0.9 k/uL (1.0-4.8); Lymphocytes % (A) 31 %; MCHC 32.6 g/dL (31.0-37.0); MCV 82.9 fL (80.0-100.0); Mean Platelet Volume 8.4; Monocytes # (A) 0.2 k/uL (0-1.0); Monocytes % (A) 8 %; Neutrophils # (A) 1.6 k/uL (1.3-7.7); Neutrophils % (A) 55 %; Platelet Count 117 k/uL (150-450); RBC 4.98 m/uL (4.30-5.90); RDW 14.1 % (11.5-15.5); WBC 2.9 k/uL (3.8-10.6)
[2022-05-22 15:13] LABS: Appearance,Urine Clear (Clear); Bilirubin,Urine Negative (Negative); Blood,Urine Large (Negative); Color,Urine Yellow; Glucose,Urine (UA) Negative (Negative); Ketones,Urine Negative (Negative); Leukocyte Esterase,Urine Negative (Negative); Mucus,Urine Few /hpf; Nitrite,Urine Negative (Negative); PH, Urine 5.5 (5.0-8.0); Protein,Urine Trace (Negative); RBC,Urine >182 /hpf (0-5); Specific Gravity,Urine 1.019 (1.001-1.035); Urobilinogen,Urine <2.0 mg/dL (<2.0); WBC,Urine 2 /hpf (0-5)
[2022-05-22 15:14] LABS: ALT 13 U/L (4-49); AST 17 U/L (17-59); African American GFR (CKD) >90 (>60 ml/min/1.73 sqM); Albumin 4.4 g/dL (3.5-5.0); Alkaline Phosphatase 69 U/L (38-126); Anion Gap 7 mmol/L; Blood Urea Nitrogen 6 mg/dL (9-20); Calcium 8.8 mg/dL (8.4-10.2); Carbon Dioxide 24 mmol/L (22-30); Chloride 108 mmol/L (98-107); Glucose 77 mg/dL (74-99); Lipase 29 U/L (23-300); Non-African American GFR(CKD) >90 (>60 ml/min/1.73 sqM); Potassium 4.5 mmol/L (3.5-5.1); Sodium 139 mmol/L (137-145); Total Bilirubin 0.5 mg/dL (0.2-1.3); Total Protein 7.2 g/dL (6.3-8.2)
[2022-05-22 15:18] LABS: INR 1.1 (<1.2); Partial Thromboplastin Time 23.7 sec (22.0-30.0); Prothrombin Time 11.1 sec (9.0-12.0)
[2022-05-22] MEDS ORDERED: KETOROLAC 15 MG/ML 1 ML VIAL IVP STA (15:30)
--- NOTE | 2022-05-22 15:56 | CT ---
EXAMINATION TYPE: CT abdomen pelvis w con CT DLP: 568.2 mGycm, Automated exposure control for dose reduction was used. DATE OF EXAM: 05/22/2022 3:47 PM COMPARISON: CTA chest 01/11/2022 CLINICAL INDICATION:Male, 36 years old with history of rlq ab pain; RLQ pain. TECHNIQUE: Standard CT of the abdomen and pelvis following the administration of 100 cc of Isovue 3 00 IV contrast material. Coronal and sagittal reformats were performed. FINDINGS: LOWER CHEST: Unremarkable ABDOMEN LIVER: Unremarkable GALLBLADDER AND BILE DUCTS: Unremarkable. PANCREAS: Unremarkable. SPLEEN: Unremarkable. ADRENAL GLANDS: Unremarkable. KIDNEYS AND URETERS: No evidence of hydronephrosis or renal calculus. The kidneys enhance symmetrical ly without suspicious focal lesion. Contrast is demonstrated within both collecting systems on the de layed phase. PELVIS BLADDER: Incompletely distended but grossly unremarkable. REPRODUCTIVE: Unremarkable. ABDOMEN & PELVIS STOMACH AND BOWEL: Stomach and duodenum are unremarkable. No focal wall thickening or stranding infla mmatory changes. The appendix is within normal limits. No evidence of bowel obstruction. PERITONEUM: No evidence of pneumoperitoneum or free fluid. VASCULATURE: No evidence of aortic aneurysm. MUSCULOSKELETAL: No acute osseous abnormalities LYMPH NODES: No gross evidence for lymphadenopathy. SOFT TISSUE/ABDOMINAL WALL: Unremarkable IMPRESSION: No acute abdominal/pelvic process. Unremarkable appendix.
[2022-05-22] MEDS ORDERED: HYDROmorphone 0.5 MG/0.5 ML SYRINGE IVP STA ×2 (16:45→18:00)
[2022-05-22 17:24] VITALS: BP 121/77; RESP 18; TEMP 98
[2022-05-22] MEDS ORDERED: TAMSULOSIN 0.4 MG CAP.ER.24H PO STA (17:46)
[2022-05-22 18:16] VITALS: PULSE 45
== END 2022-05-22 18:21 | disposition home or self-care (01) ==
LOC: EC 13:09
DX: N23 Unspecified renal colic (principal); F41.9 Anxiety disorder, unspecified; F31.9 Bipolar disorder, unspecified; F17.200 Nicotine dependence, unspecified, uncomplicated; F12.90 Cannabis use, unspecified, uncomplicated; Z88.0 Allergy status to penicillin; Z88.2 Allergy status to sulfonamides; Z88.1 Allergy status to other antibiotic agents; Z86.16 Personal history of COVID-19
CPT/HCPCS: 36415; 80053; 83690; 85025; 85610; 85730; 81001; 74177; 99285; 96374; 96375; 96361 ×2; J1885; J1170; Q9967

== ENCOUNTER 2022-07-22 10:56 | Emergency (ER) | payer OTHER ==
[2022-07-22 11:05] VITALS: TEMP 97.9
--- NOTE | 2022-07-22 11:46 | ED ---
General Adult HPI - General Chief complaint: Neuro Symptoms/Deficit Stated complaint: vision issues Time Seen by Provider: 07/22/22 11:07 Source: patient Mode of arrival: wheelchair Limitations: no limitations - History of Present Illness Initial comments: Dictation was produced using [employer] dictation software. please excuse any grammatical, word or spelling errors. Chief Complaint: 36-year-old male with past medical history of chronic head and in cancer presents to the ER for headaches, weakness, right lower extremity weakness History of Present Illness: Patient is a 36-year-old male he presents emergency department for several days of severe headache, left-sided head pain, total body weakness and right lower extremity weakness. Has a history of complicated brain cancer that was resected last year. States that he recently found out that there is a recurrence based on recent imaging. He was supposed to follow up with his neurosurgeon's in [place] today however states that his symptoms were so severe. He called and had a telemetry appointment with neurosurgery nurse. He was instructed to go to the nearest ER. The ROS documented in this emergency department record has been reviewed and confirmed by me. Those systems with pertinent positive or negative responses have been documented in the HPI. All other systems are other negative and/or noncontributory. - Related Data Home Medications Medication Instructions Recorded Confirmed HYDROcodone/APAP 10-325MG [[place] 1 tab PO Q4H PRN 07/29/21 07/22/22 10-325] methocarbamoL [Robaxin] 1,000 mg PO TID 07/29/21 07/22/22 Gabapentin [Neurontin] 800 mg PO TID 05/22/22 07/22/22 Buprenorphine [Butrans 20 MCG/HOUR] 1 patch TRANSDERM SA 07/22/22 07/22/22 Allergies Allergy/AdvReac Type Severity Reaction Status Date / Time Penicillins Allergy Rash/Hives Verified 07/22/22 12:20 sulfamethoxazole Allergy Rash/Hives Verified 07/22/22 12:20 [From Bactrim] trimethoprim [From Bactrim] Allergy Rash/Hives Verified 07/22/22 12:20 vancomycin Allergy Rash/Hives Verified 07/22/22 12:20 Review of Systems ROS Statement: Those systems with pertinent positive or pertinent negative responses have been documented in the HPI. ROS Other: All systems not noted in ROS Statement are negative. Past Medical History Past Medical History: Cancer Additional Past Medical History / Comment(s): Covid positive 04/01/21, L tympanic membrane perforation 6-7 months ago/treated with antibiotics past several months, 2014 jaw fracture/surgeries.CA left ear. and Brain, History of Any Multi-Drug Resistant Organisms: None Reported, MRSA Date of last positivie culture/infection: 04/02/21 MDRO Source:: MRSA EAR Past Surgical History: Ear Surgery, Hernia Repair Additional Past Surgical History / Comment(s): jaw fracture repositioned then ended up wired 05/04/14, inguinal hernia repair/pt cannot recall laterallity. Titanium plate removed from left side of head 01/06/22. Left ear removed due to brain cancer 04/2021. Past Anesthesia/Blood Transfusion Reactions: No Reported Reaction Past Psychological History: Anxiety, Bipolar, Depression Smoking Status: Current every day smoker Past Alcohol Use History: None Reported Past Drug Use History: None Reported, Marijuana - Past Family History Mother Additional Family Medical History / Comment(s): Mother is . Pt does not know her medical history. Father Family Medical History: Diabetes Mellitus, Neurologic Disorder Additional Family Medical History / Comment(s): Parkinson's disease General Exam - General Exam Comments Initial Comments: PHYSICAL EXAM: General Impression: Alert and oriented x3, not in acute distress HEENT: Normocephalic atraumatic, extra-ocular movements intact, pupils equal and reactive to light bilaterally, mucous membranes moist, chronic wound to the left temporal area that is packed. No purulent drainage, mildly erythematous without any induration. Resected left ear. Cardiovascular: Heart regular rate and rhythm Chest: Able to complete full sentences, no retractions, no tachypnea Abdomen: abdomen soft, non-tender, non-distended, no organomegaly Musculoskeletal: Pulses present and equal in all extremities, no peripheral edema Motor: no focal deficits noted Neurological: Left facial droop, right lower extremity 4 out of 5 strength. No sensory deficits to the extremities with light touch Skin: Intact with no visualized rashes Psych: Normal affect and mood Limitations: no limitations Course Vital Signs 07/22/22 11:03 Temperature 97.9 F Pulse Rate 76 Respiratory 18 Rate Blood Pressure 144/89 O2 Sat by Pulse 100 Oximetry Medical Decision Making - Medical Decision Making Was pt. sent in by a medical professional or institution ([facility], [facility], urgent care, hospital, or long-term...) When possible be specific @ -No Did you speak to anyone other than the patient for history (EMS, parent, family, police, friend...)? What history was obtained from this source @ -No Did you review nursing and triage notes (agree or disagree)? Why? @ -I reviewed and agree with nursing and triage notes Were old charts reviewed (outside hosp., previous admission, EMS record, old EKG, old radiological studies, urgent care reports/EKG's, long-term records)? Report findings @ Prior chart was reviewed showing the patient these had the mass back in December of last year. Oncology notes showed that patient had a bout of mastoiditis of the left ear back in April of last year Differential Diagnosis (chest pain, altered mental status, abdominal pain women, abdominal pain men, vaginal bleeding, musculoskeletal, weakness, fever, dyspnea, syncope, headache, dizziness, GI bleed, back pain, seizure, CVA, palpatations, mental health)? @ - Differential CVA: Ischemic stroke, hemorrhagic stroke, brain tumor, atypical migraine, Wernicke's encephalopathy, seizure, multiple sclerosis, meningitis, encephalitis, hypoglycemia, Guillain-Rand, electrolytes disturbance, myasthenia gravis.... This is not meant to be an all-inclusive list EKG interpreted by me (3pts min.). @ -None done X-rays interpreted by me (1pt min.). @ -None done CT interpreted by me (1pt min.). @ -CT brain shows no acute processes. There is stable postsurgical changes at the left cranial fossa U/S interpreted by me (1pt. min.). @ -None done What testing was considered but not performed or refused? (CT, X-rays, U/S, labs)? Why? @ -None What meds were considered but not given or refused? Why? @ -None Did you discuss the management of the patient with other professionals (professionals i.e. [facility] Mcin[facility], [facility], lab, RT, psych nurse, social media marketing specialist, sole layer, teacher, first aid officer, classification case manager)? Give summary @ -Case discussed with transfer team and Dr. De Santiago at [facility] for transfer Was smoking cessation discussed for >3mins.? @ -No Was critical care preformed (if so, how long)? @ -No Were there social determinants of health that impacted care today? How? (Homelessness, low income, unemployed, alcoholism, drug addiction, transportation, low edu. Level, literacy, decrease access to med. care, correction, rehab)? @ -No Was there de-escalation of care discussed even if they declined (Discuss DNR or withdrawal of care, Hospice)? DNR status @ -No What co-morbidities impacted this encounter? (DM, HTN, Smoking, COPD, CAD, Cancer, CVA, ARF, Chemo, Hep., AIDS, mental health diagnosis, sleep apnea, morbid obesity)? @ -None Was patient admitted / discharged? Hospital course, mention meds given and route, prescriptions, significant lab abnormalities, going to OR and other pertinent info. @ -37-year-old male with history of intracranial tumor presents to the ER for headache, right lower extremity weakness. Patient is well-appearing at the bedside. He does have measurable right-sided right lower extremity weakness that he states is new. Patient accepted by Dr. De Santiago at [facility]. Undiagnosed new problem with uncertain prognosis? @ -No Drug Therapy requiring intensive monitoring for toxicity (Heparin, Nitro, Insulin, Cardizem)? @ -No Were any procedures done? @ -No Diagnosis/symptom? Acute, or Chronic, or Acute on Chronic? Uncomplicated (without systemic symptoms) or Complicated (systemic symptoms)? @ -1. Neurologic deficits, history of unspecified brain cancer Side effects of treatment? @ -No Exacerbation, Progression, or Severe Exacerbation? @ -No Poses a threat to life or bodily function? How? (Chest pain, [place], [place], pneumonia, PE, COPD, DKA, ARF, appy, cholecystitis, CVA, Diverticulitis, Homicidal, Suicidal, threat to staff... and all critical care pts) @ -yes - Lab Data Result diagrams: 07/22/22 11:43 07/22/22 11:43 Lab Results 07/22/22 07/22/22 07/22/22 Range/Units 11:43 11:43 11:43 WBC 4.6 (3.8-10.6) k/uL RBC 4.73 (4.30-5.90) m/uL Hgb 13.0 (13.0-17.5) gm/dL Hct 39.2 (39.0-53.0) % MCV 82.8 (80.0-100.0) fL MCH 27.4 (25.0-35.0) pg MCHC 33.1 (31.0-37.0) g/dL RDW 16.1 H (11.5-15.5) % Plt Count 172 (150-450) k/uL MPV 8.3 Neutrophils % 66 % Lymphocytes % 18 % Monocytes % 12 % Eosinophils % 1 % Basophils % 0 % Neutrophils # 3.0 (1.3-7.7) k/uL Lymphocytes # 0.8 L (1.0-4.8) k/uL Monocytes # 0.6 (0-1.0) k/uL Eosinophils # 0.0 (0-0.7) k/uL Basophils # 0.0 (0-0.2) k/uL Anisocytosis Slight PT 10.4 (9.0-12.0) sec INR 1.0 (<1.2) APTT 24.7 (22.0-30.0) sec Sodium 138 (137-145) mmol/L Potassium 4.5 (3.5-5.1) mmol/L Chloride 100 (98-107) mmol/L Carbon Dioxide 28 (22-30) mmol/L Anion Gap 10 mmol/L BUN 13 (9-20) mg/dL Creatinine 0.65 L (0.66-1.25) mg/dL Est GFR (CKD-EPI)AfAm >90 (>60 ml/min/1.73 sqM) Est GFR (CKD-EPI)NonAf >90 (>60 ml/min/1.73 sqM) Glucose 97 (74-99) mg/dL Plasma Lactic Acid Jin (0.7-2.0) mmol/L Calcium 9.5 (8.4-10.2) mg/dL Magnesium 2.0 (1.6-2.3) mg/dL 07/22/22 Range/Units 11:43 WBC (3.8-10.6) k/uL RBC (4.30-5.90) m/uL Hgb (13.0-17.5) gm/dL Hct (39.0-53.0) % MCV (80.0-100.0) fL MCH (25.0-35.0) pg MCHC (31.0-37.0) g/dL RDW (11.5-15.5) % Plt Count (150-450) k/uL MPV Neutrophils % % Lymphocytes % % Monocytes % % Eosinophils % % Basophils % % Neutrophils # (1.3-7.7) k/uL Lymphocytes # (1.0-4.8) k/uL Monocytes # (0-1.0) k/uL Eosinophils # (0-0.7) k/uL Basophils # (0-0.2) k/uL Anisocytosis PT (9.0-12.0) sec INR (<1.2) APTT (22.0-30.0) sec Sodium (137-145) mmol/L Potassium (3.5-5.1) mmol/L Chloride (98-107) mmol/L Carbon Dioxide (22-30) mmol/L Anion Gap mmol/L BUN (9-20) mg/dL Creatinine (0.66-1.25) mg/dL Est GFR (CKD-EPI)AfAm (>60 ml/min/1.73 sqM) Est GFR (CKD-EPI)NonAf (>60 ml/min/1.73 sqM) Glucose (74-99) mg/dL Plasma Lactic Acid Jin 0.9 (0.7-2.0) mmol/L Calcium (8.4-10.2) mg/dL Magnesium (1.6-2.3) mg/dL Disposition Clinical Impression: Neurological deficit present Disposition: OTHER INSTITUTION NOT DEFINED Condition: Fair Referrals: Nonstaff,Physician [Primary Care Provider] - 1-2 days Time of Disposition: 14:30 - Out of Hospital Transfer - Req. Specs Out of Hospital Transfer - Requested Specifics: Other Emergency Center ([facility])
[2022-07-22 12:01] LABS: African American GFR (CKD) >90 (>60 ml/min/1.73 sqM); Anion Gap 10 mmol/L; Blood Urea Nitrogen 13 mg/dL (9-20); Calcium 9.5 mg/dL (8.4-10.2); Carbon Dioxide 28 mmol/L (22-30); Chloride 100 mmol/L (98-107); Glucose 97 mg/dL (74-99); Non-African American GFR(CKD) >90 (>60 ml/min/1.73 sqM); Potassium 4.5 mmol/L (3.5-5.1); Sodium 138 mmol/L (137-145)
[2022-07-22 12:03] LABS: Anisocytosis Slight; Basophils % (A) 0 %; Eosinophils % (A) 1 %; HCT 39.2 % (39.0-53.0); Lymphocytes # (A) 0.8 k/uL (1.0-4.8); Lymphocytes % (A) 18 %; MCH 27.4 pg (25.0-35.0); MCHC 33.1 g/dL (31.0-37.0); MCV 82.8 fL (80.0-100.0); Mean Platelet Volume 8.3; Monocytes # (A) 0.6 k/uL (0-1.0); Monocytes % (A) 12 %; Neutrophils % (A) 66 %; Platelet Count 172 k/uL (150-450); RBC 4.73 m/uL (4.30-5.90); RDW 16.1 % (11.5-15.5); WBC 4.6 k/uL (3.8-10.6)
[2022-07-22 12:04] LABS: Partial Thromboplastin Time 24.7 sec (22.0-30.0); Prothrombin Time 10.4 sec (9.0-12.0)
--- NOTE | 2022-07-22 12:32 | CT ---
EXAMINATION TYPE: CT brain cspine wo con CT DLP: 1361 mGycm, Automated exposure control for dose reduction was used. DATE OF EXAM: 07/22/2022 12:12 PM COMPARISON: CT most recently 01/11/2022 CT 04/15/2021 CLINICAL INDICATION:Male, 36 years old with history of headache, hx of brain CA; headache, hx of brai n CA TECHNIQUE: Brain: Multiple axial CT images of the brain were obtained without IV contrast. Cspine: Axial CT images from the skull base to the inferior aspect of T2 we obtained without intraven ous contrast. Coronal and sagittal reformatted images were also reviewed. FINDINGS: Brain: Extra-axial spaces: No abnormal extra-axial fluid collections. The dural thickening along the surgica l bed on the left. No abnormal fluid collections visualized in the left middle cranial fossa is uncha nged in its appearance given limitations exam with streak artifact over the left globe. Ventricular system: Within normal limits Cerebral parenchyma: No acute intraparenchymal hemorrhage or mass effect. The schneider-white junction is well differentiated. Cerebellum: Unremarkable. Mass effect: No evidence of midline shift. Intracranial vasculature: unremarkable Soft tissues: Normal. Calvarium/osseous structures: No depressed skull fracture. Postsurgical changes to the left temporal bone and calvarium/skull. Paranasal sinuses and mastoid air cells: Clear. Visualized orbits: Orbital contents are intact. Cervical spine: Fracture: None. Osseous structures: Fixation hardware involving the mandible with post operative changes of the left temporal bone and left-sided of the head/skull. Spine and measures mild osteophyte formation. No evid ence of significant spinal canal neural foraminal stenosis. Vertebral alignment: Within normal limits. Spinal canal/Neural Foramina: No evidence of significant spinal canal narrowing. No evidence for sign ificant neural foraminal stenosis. Neck soft tissues: Prevertebral soft tissues are within normal limits. Multiple surgical clips are se en along the neck. Paucity of fat along the left neck limits evaluation of the structures given lack of IV contrast.. Right chest [id number] partially visualized visualized portion appears intact. Other: The airway is patent. The lung apices are clear. IMPRESSION: 1. No acute intracranial process. 2. Similar Postsurgical change the neck and head with stable appearance of the left middle cranial f nishant. Streak artifact from left globe device limits evaluation somewhat. 3. No evidence of cervical spine fracture. 4. Postsurgical changes along the left neck with multiple skin arturo. There is paucity of fat limi ting evaluation of the structures without IV contrast.
[2022-07-22] MEDS ORDERED: MORPHINE SULFATE 4 MG/ML SYRINGE IV STA (13:06)
[2022-07-22] MEDS ORDERED: ONDANSETRON 4 MG/2 ML VIAL IVP STA (13:42)
[2022-07-22] MEDS ORDERED: MORPHINE SULFATE 4 MG/ML SYRINGE IVP STA (16:15)
[2022-07-22 17:55] VITALS: BP 114/68; PULSE 71; RESP 12
== END 2022-07-22 17:18 | disposition other institution (70) ==
LOC: EC 10:56
DX: R29.818 Other symptoms and signs involving the nervous system (principal); F31.9 Bipolar disorder, unspecified; F41.9 Anxiety disorder, unspecified; F17.200 Nicotine dependence, unspecified, uncomplicated; Z79.899 Other long term (current) drug therapy; Z88.0 Allergy status to penicillin; Z88.1 Allergy status to other antibiotic agents; Z88.2 Allergy status to sulfonamides; Z86.16 Personal history of COVID-19
CPT/HCPCS: 36415; 93005; 80048; 83605; 83735; 85025; 85610; 85730; 72125; 70450; 99285; 96374; 96376; 96375; J2270; J2405

== ENCOUNTER 2022-09-12 14:39 | Emergency (ER) | payer OTHER ==
[2022-09-12 15:38] VITALS: BP 114/83; PULSE 86; RESP 20; TEMP 98
--- NOTE | 2022-09-12 16:36 | ED ---
General Adult HPI - General Chief complaint: Recheck/Abnormal Lab/Rx Stated complaint: recheck Time Seen by Provider: 09/12/22 15:58 Source: patient, RN notes reviewed Mode of arrival: ambulatory Limitations: no limitations - History of Present Illness Initial comments: Patient is a pleasant 37-year-old male presenting to the emergency department requesting blood work for preop labs. Patient states he is scheduled to have surgery on Thursday at [facility] with his neurosurgeon. Patient does have history of brain tumor with erosion to the skull. Patient has had 10 operations far. Patient does not have an order however has on his computer that he should be having preop labs of CBC, basic metabolic panel, CRP, magnesium, phosphorus, and ionized calcium. Patient is symptom-free at this time. - Related Data Home Medications Medication Instructions Recorded Confirmed HYDROcodone/APAP 10-325MG [[place] 1 tab PO Q4H PRN 07/29/21 07/22/22 10-325] methocarbamoL [Robaxin] 1,000 mg PO TID 07/29/21 07/22/22 Gabapentin [Neurontin] 800 mg PO TID 05/22/22 07/22/22 Buprenorphine [Butrans 20 MCG/HOUR] 1 patch TRANSDERM SA 07/22/22 07/22/22 Allergies Allergy/AdvReac Type Severity Reaction Status Date / Time Penicillins Allergy Rash/Hives Verified 09/12/22 15:38 sulfamethoxazole Allergy Rash/Hives Verified 09/12/22 15:38 [From Bactrim] trimethoprim [From Bactrim] Allergy Rash/Hives Verified 09/12/22 15:38 vancomycin Allergy Rash/Hives Verified 09/12/22 15:38 Review of Systems ROS Statement: Those systems with pertinent positive or pertinent negative responses have been documented in the HPI. ROS Other: All systems not noted in ROS Statement are negative. Constitutional: Denies: fever Eyes: Denies: eye pain ENT: Denies: ear pain Respiratory: Denies: cough Cardiovascular: Denies: chest pain Endocrine: Denies: fatigue Gastrointestinal: Denies: abdominal pain Genitourinary: Denies: dysuria Musculoskeletal: Denies: back pain Skin: Denies: rash Past Medical History Past Medical History: Cancer Additional Past Medical History / Comment(s): Covid positive 04/01/21, L tympanic membrane perforation 6-7 months ago/treated with antibiotics past several months, 2014 jaw fracture/surgeries.CA left ear. and Brain, History of Any Multi-Drug Resistant Organisms: None Reported, MRSA Date of last positivie culture/infection: 04/02/21 MDRO Source:: MRSA EAR Past Surgical History: Ear Surgery, Hernia Repair Additional Past Surgical History / Comment(s): jaw fracture repositioned then ended up wired 05/04/14, inguinal hernia repair/pt cannot recall laterallity. Titanium plate removed from left side of head 01/06/22. Left ear removed due to brain cancer 04/2021. Past Anesthesia/Blood Transfusion Reactions: No Reported Reaction Past Psychological History: Anxiety, Bipolar, Depression Smoking Status: Current every day smoker Past Alcohol Use History: None Reported Past Drug Use History: None Reported, Marijuana - Past Family History Mother Additional Family Medical History / Comment(s): Mother is . Pt does not know her medical history. Father Family Medical History: Diabetes Mellitus, Neurologic Disorder Additional Family Medical History / Comment(s): Parkinson's disease General Exam Limitations: no limitations General appearance: alert, in no apparent distress Head exam: Present: other (Postsurgical changes) Eye exam: Present: normal appearance Neck exam: Present: other (Postsurgical changes) Respiratory exam: Present: normal lung sounds bilaterally Cardiovascular Exam: Present: regular rate, normal rhythm Extremities exam: Present: normal inspection Neurological exam: Present: other (Left facial weakness ) Psychiatric exam: Present: normal affect, normal mood Skin exam: Present: other (Skin grafts left side of face) Course Vital Signs 09/12/22 15:33 Temperature 98.0 F Pulse Rate 86 Respiratory 20 Rate Blood Pressure 114/83 O2 Sat by Pulse 100 Oximetry Medical Decision Making - Medical Decision Making Was pt. sent in by a medical professional or institution (, PA, SERVICE ADMINISTRATOR, urgent care, hospital, or fpc...) When possible be specific @ -Patient was sent from his neurosurgeon to have preop labs done Did you speak to anyone other than the patient for history (EMS, parent, family, police, friend...)? What history was obtained from this source @ -No Did you review nursing and triage notes (agree or disagree)? Why? @ -I reviewed and agree with nursing and triage notes Were old charts reviewed (outside hosp., previous admission, EMS record, old EKG, old radiological studies, urgent care reports/EKG's, fpc records)? Report findings @ -No old charts were reviewed Differential Diagnosis (chest pain, altered mental status, abdominal pain women, abdominal pain men, vaginal bleeding, weakness, fever, dyspnea, syncope, headache, dizziness, GI bleed, back pain, seizure, CVA, palpatations, mental health, musculoskeletal)? @ -not applicable EKG interpreted by me (3pts min.). @ -As above X-rays interpreted by me (1pt min.). @ -None done CT interpreted by me (1pt min.). @ -None done U/S interpreted by me (1pt. min.). @ -None done What testing was considered but not performed or refused? (CT, X-rays, U/S, labs)? Why? @ -None What meds were considered but not given or refused? Why? @ -None Did you discuss the management of the patient with other professionals (professionals i.e. , PA, SERVICE ADMINISTRATOR, lab, RT, psych nurse, medical social consultant, vocational rehabilitation technician, teacher, life science technical officer, field nurse case manager)? Give summary @ -No Was smoking cessation discussed for >3mins.? @ -No Was critical care preformed (if so, how long)? @ -No Were there social determinants of health that impacted care today? How? (Homelessness, low income, unemployed, alcoholism, drug addiction, transportation, low edu. Level, literacy, decrease access to med. care, alf, rehab)? @ -No Was there de-escalation of care discussed even if they declined (Discuss DNR or withdrawal of care, Hospice)? DNR status @ -No What co-morbidities impacted this encounter? (DM, HTN, Smoking, COPD, CAD, Cancer, CVA, ARF, Chemo, Hep., AIDS, mental health diagnosis, sleep apnea, morbid obesity)? @ -None Was patient admitted / discharged? Hospital course, mention meds given and route, prescriptions, significant lab abnormalities, going to OR and other pertinent info. @ -Lab work ordered. Patient refuses to wait for results and states he will have his doctor follow-up. Undiagnosed new problem with uncertain prognosis? @ -No Drug Therapy requiring intensive monitoring for toxicity (Heparin, Nitro, Insulin, Cardizem)? @ -No Were any procedures done? @ -No Diagnosis/symptom? @ -Brain tumor, lab work Acute, or Chronic, or Acute on Chronic? @ -Acute on chronic, acute on chronic Uncomplicated (without systemic symptoms) or Complicated (systemic symptoms)? @ -default Side effects of treatment? @ -No Exacerbation, Progression, or Severe Exacerbation? @ -No Poses a threat to life or bodily function? How? (Chest pain, [place], [place], pneumonia, PE, COPD, DKA, ARF, appy, cholecystitis, CVA, Diverticulitis, Homicidal, Suicidal, threat to staff... and all critical care pts) @ -No Disposition Clinical Impression: Brain tumor, Pre-operative laboratory examination Disposition: HOME SELF-CARE Condition: Stable Additional Instructions: Please do follow-up with your doctor Thursday as planned. Please check lab work prior to this to ensure no abnormalities. Return for any problems or concerns. Is patient prescribed a controlled substance at d/c from ED?: No Referrals: Nonstaff,Physician [Primary Care Provider] - 1-2 days Time of Disposition: 16:36
[2022-09-12 17:04] LABS: Basophils % (A) 0 %; Eosinophils # (A) 0.1 k/uL (0-0.7); Eosinophils % (A) 3 %; HCT 38.9 % (39.0-53.0); HGB 12.6 gm/dL (13.0-17.5); Hypochromasia Slight; Lymphocytes % (A) 31 %; MCH 27.1 pg (25.0-35.0); MCHC 32.4 g/dL (31.0-37.0); MCV 83.8 fL (80.0-100.0); Mean Platelet Volume 8.6; Monocytes # (A) 0.4 k/uL (0-1.0); Monocytes % (A) 13 %; Neutrophils # (A) 1.6 k/uL (1.3-7.7); Neutrophils % (A) 50 %; Platelet Count 129 k/uL (150-450); RBC 4.64 m/uL (4.30-5.90); RDW 15.4 % (11.5-15.5); WBC 3.2 k/uL (3.8-10.6)
[2022-09-12 17:31] LABS: African American GFR (CKD) >90 (>60 ml/min/1.73 sqM); Anion Gap 10 mmol/L; Blood Urea Nitrogen 12 mg/dL (9-20); Calcium 9.4 mg/dL (8.4-10.2); Carbon Dioxide 27 mmol/L (22-30); Chloride 104 mmol/L (98-107); Glucose 82 mg/dL (74-99); Non-African American GFR(CKD) >90 (>60 ml/min/1.73 sqM); Phosphorus 5.3 mg/dL (2.5-4.5); Sodium 141 mmol/L (137-145)
[2022-09-12 17:33] LABS: Potassium 4.6 mmol/L (3.5-5.1)
[2022-09-12 18:06] LABS: Partial Thromboplastin Time 23.1 sec (22.0-30.0); Prothrombin Time 10.5 sec (9.0-12.0)
[2022-09-12 19:16] LABS: C Reactive Protein 0.6 mg/dL (<1.0)
== END 2022-09-12 17:23 | disposition home or self-care (01) ==
LOC: EC 14:39
DX: Z01.812 Encounter for preprocedural laboratory examination (principal); C71.9 Malignant neoplasm of brain, unspecified; F41.9 Anxiety disorder, unspecified; F32.A Depression, unspecified; F17.200 Nicotine dependence, unspecified, uncomplicated; F12.90 Cannabis use, unspecified, uncomplicated; Z88.0 Allergy status to penicillin; Z88.2 Allergy status to sulfonamides; Z88.8 Allergy status to other drugs, medicaments and biological substances; Z86.16 Personal history of COVID-19; Z88.1 Allergy status to other antibiotic agents
CPT/HCPCS: 36415; 80048; 82330; 83735; 84100; 85025; 85610; 85730; 86140; 99283

== ENCOUNTER 2024-01-21 15:24 | Emergency (ER) | payer OTHER ==
[2024-01-21 15:49] VITALS: RESP 20; TEMP 98.9
--- NOTE | 2024-01-21 16:46 | XR ---
EXAMINATION TYPE: XR ankle complete LT DATE OF EXAM: 01/21/2024 4:37 PM COMPARISON: None CLINICAL INDICATION: Male, 38 years old with history of fall swelling tender; TECHNIQUE: XR ankle complete LT; ankle is imaged in frontal, lateral and oblique projections. FINDINGS: There is no evidence of acute osseous pathology. No evidence of subluxation or dislocation. Kager's fat pad is intact. No radiopaque foreign bodies are identified. Calcaneal plantar spurring is presen t. Calcaneal Achilles enthesophyte. IMPRESSION: 1. No evidence of acute fracture. 2. Subcutaneous swelling around the ankle likely secondary to underlying soft tissue injury. [facility], , 01/21/2024 4:44 PM
--- NOTE | 2024-01-21 16:49 | ED ---
Lower Extremity Injury HPI - General Chief Complaint: Extremity Injury, Lower Stated Complaint: FELL THINKS BROKE LEFT FOOT Time Seen by Provider: 01/21/24 15:40 Source: patient, RN notes reviewed Mode of arrival: wheelchair Limitations: no limitations - History of Present Illness Initial Comments: Is a 38-year-old male presenting to the emergency department chief complaint of left foot pain. States that he was walking on the stairs when he accidentally tripped over the last 2 stairs twisting his left foot. Patient [place] hitting his head or loss conscious in the injury. Patient denies other injuries at time of the event. No other acute complaints at this time. - Related Data Home Medications Medication Instructions Recorded Confirmed HYDROcodone/APAP 10-325MG [[place] 1 tab PO Q4H PRN 07/29/21 07/22/22 10-325] methocarbamoL [Robaxin] 1,000 mg PO TID 07/29/21 07/22/22 Gabapentin [Neurontin] 800 mg PO TID 05/22/22 07/22/22 Buprenorphine [Butrans 20 MCG/HOUR] 1 patch TRANSDERM SA 07/22/22 07/22/22 Allergies Allergy/AdvReac Type Severity Reaction Status Date / Time Penicillins Allergy Rash/Hives Verified 09/12/22 15:38 sulfamethoxazole Allergy Rash/Hives Verified 09/12/22 15:38 [From Bactrim] trimethoprim [From Bactrim] Allergy Rash/Hives Verified 09/12/22 15:38 vancomycin Allergy Rash/Hives Verified 09/12/22 15:38 Review of Systems ROS Statement: Those systems with pertinent positive or pertinent negative responses have been documented in the HPI. ROS Other: All systems not noted in ROS Statement are negative. Past Medical History Past Medical History: Cancer Additional Past Medical History / Comment(s): Covid positive 04/01/21, L tympanic membrane perforation 6-7 months ago/treated with antibiotics past several months, 2014 jaw fracture/surgeries.CA left ear. and Brain, History of Any Multi-Drug Resistant Organisms: None Reported, MRSA Date of last positivie culture/infection: 04/02/21 MDRO Source:: MRSA EAR Past Surgical History: Ear Surgery, Hernia Repair Additional Past Surgical History / Comment(s): jaw fracture repositioned then ended up wired 05/04/14, inguinal hernia repair/pt cannot recall laterallity. Titanium plate removed from left side of head 01/06/22. Left ear removed due to brain cancer 04/2021. Past Anesthesia/Blood Transfusion Reactions: No Reported Reaction Past Psychological History: Anxiety, Bipolar, Depression Smoking Status: Current every day smoker Past Alcohol Use History: None Reported Past Drug Use History: None Reported, Marijuana - Past Family History Mother Additional Family Medical History / Comment(s): Mother is . Pt does not know her medical history. Father Family Medical History: Diabetes Mellitus, Neurologic Disorder Additional Family Medical History / Comment(s): Parkinson's disease General Exam Limitations: no limitations General appearance: alert, in no apparent distress Eye exam: Present: normal appearance, PERRL, EOMI. Absent: scleral icterus, conjunctival injection, periorbital swelling ENT exam: Present: normal exam, mucous membranes moist Neck exam: Present: normal inspection. Absent: tenderness, meningismus, lymphadenopathy Respiratory exam: Present: normal lung sounds bilaterally. Absent: respiratory distress, wheezes, rales, rhonchi, stridor Cardiovascular Exam: Present: regular rate, normal rhythm, normal heart sounds. Absent: systolic murmur, diastolic murmur, rubs, gallop, clicks GI/Abdominal exam: Present: soft, normal bowel sounds. Absent: distended, tenderness, guarding, rebound, rigid Left Ankle exam: Present: normal inspection, full ROM (Tenderness). Absent: tenderness, swelling Foot/Toe exam: Present: normal inspection, full ROM. Absent: tenderness, swelling Neurovascular tendon exam: Present: no vascular compromise Gait: observed and normal Back exam: Present: normal inspection Neurological exam: Present: alert, oriented X3, CN II-XII intact Psychiatric exam: Present: normal affect, normal mood Course Vital Signs 01/21/24 01/21/24 15:47 17:46 Temperature 98.9 F Pulse Rate 120 H 110 H Respiratory 20 20 Rate Blood Pressure 165/112 127/90 O2 Sat by Pulse 99 100 Oximetry Medical Decision Making - Medical Decision Making Was pt. sent in by a medical professional or institution (, PA, SEPTIC CLEANER, urgent care, hospital, or usp...) When possible be specific @ -No Did you speak to anyone other than the patient for history (EMS, parent, family, police, friend...)? What history was obtained from this source @ -No Did you review nursing and triage notes (agree or disagree)? Why? @ -I reviewed and agree with nursing and triage notes Were old charts reviewed (outside hosp., previous admission, EMS record, old EKG, old radiological studies, urgent care reports/EKG's, usp records)? Report findings @ -No old charts were reviewed Differential Diagnosis (chest pain, altered mental status, abdominal pain women, abdominal pain men, vaginal bleeding, weakness, fever, dyspnea, syncope, headache, dizziness, GI bleed, back pain, seizure, CVA, palpatations, mental health, musculoskeletal)? @ -Differential Musculoskeletal Muscular strain, contusion, ligament sprain, fracture, arthritis, septic arthritis, bursitis, cellulitis, muscle spasm, nerve compression, DVT, arterial occlusion, herpes zoster, electrolyte abnormality, tumor.... This is not meant to be in all inclusive list EKG interpreted by me (3pts min.). @ -None X-rays interpreted by me (1pt min.). @ -X-ray of the left ankle reveals no evidence of acute fracture with subcutaneous swelling around the ankle. CT interpreted by me (1pt min.). @ -None done U/S interpreted by me (1pt. min.). @ -None done What testing was considered but not performed or refused? (CT, X-rays, U/S, labs)? Why? @ -None What meds were considered but not given or refused? Why? @ -None Did you discuss the management of the patient with other professionals (professionals i.e. , PA, SEPTIC CLEANER, lab, RT, psych nurse, high school social science teacher, firer kiln, teacher, customer service security officer, catalytic case operator)? Give summary @ -No Was smoking cessation discussed for >3mins.? @ -No Was critical care preformed (if so, how long)? @ -No Were there social determinants of health that impacted care today? How? (Homelessness, low income, unemployed, alcoholism, drug addiction, transportation, low edu. Level, literacy, decrease access to med. care, shelter, rehab)? @ -No Was there de-escalation of care discussed even if they declined (Discuss DNR or withdrawal of care, Hospice)? DNR status @ -No What co-morbidities impacted this encounter? (DM, HTN, Smoking, COPD, CAD, Cancer, CVA, ARF, Chemo, Hep., AIDS, mental health diagnosis, sleep apnea, morbid obesity)? @ -None Was patient admitted / discharged? Hospital course, mention meds given and route, prescriptions, significant lab abnormalities, going to OR and other pertinent info. @ -Discharge. 38-year-old male with left ankle and foot pain. Patient is able to bear weight and ambulate with no acute deficits. Neurovascular intact. X- ray negative for acute process. Patient is provided with Fernie wrap and instructed to continue to treatment at home. Discussed with Dr. Monaco Undiagnosed new problem with uncertain prognosis? @ -No Drug Therapy requiring intensive monitoring for toxicity (Heparin, Nitro, Insulin, Cardizem)? @ -No Were any procedures done? @ -No Diagnosis/symptom? @ -ankle sprain, foot sprain Acute, or Chronic, or Acute on Chronic? @ -Acute Uncomplicated (without systemic symptoms) or Complicated (systemic symptoms)? @ -uncomplicated Side effects of treatment? @ -No Exacerbation, Progression, or Severe Exacerbation? @ -No Poses a threat to life or bodily function? How? (Chest pain, [place], [place], pneumonia, PE, COPD, DKA, ARF, appy, cholecystitis, CVA, Diverticulitis, Homicidal, Suicidal, threat to staff... and all critical care pts) @ -No Disposition Clinical Impression: Ankle sprain, Foot sprain Disposition: HOME SELF-CARE Condition: Good Instructions (If sedation given, give patient instructions): Ankle Sprain (ED), Foot Sprain (ED) Additional Instructions: Please return to the Emergency Department if symptoms worsen or any other concerns. Continue supportive treatment at home such as using Fernie wrap, ice, Tylenol Motrin as needed. Is patient prescribed a controlled substance at d/c from ED?: No Referrals: Nonstaff,Physician [Primary Care Provider] - 1-2 days Time of Disposition: 17:05
[2024-01-21 17:48] VITALS: BP 127/90; PULSE 110
== END 2024-01-21 17:47 | disposition home or self-care (01) ==
LOC: EC 15:24
DX: S93.402A Sprain of unspecified ligament of left ankle, initial encounter (principal); S93.602A Unspecified sprain of left foot, initial encounter; F17.200 Nicotine dependence, unspecified, uncomplicated; Z86.16 Personal history of COVID-19; Z88.0 Allergy status to penicillin; Z88.1 Allergy status to other antibiotic agents; Z88.2 Allergy status to sulfonamides; W10.9XXA Fall (on) (from) unspecified stairs and steps, initial encounter; X50.1XXA Overexertion from prolonged static or awkward postures, initial encounter; Y93.01 Activity, walking, marching and hiking
CPT/HCPCS: 99283

== ENCOUNTER 2024-02-04 10:28 | Emergency (ER) | payer OTHER ==
[2024-02-04 10:36] VITALS: TEMP 98.3
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
[2024-02-04] MEDS: LIDOCAINE/EPINEPHR/TETRACAINE 5 ML BOTTLE TOPICAL ONE (12:13)
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
[2024-02-04 13:50] VITALS: BP 103/65; PULSE 70; RESP 20
== END 2024-02-04 13:50 | disposition home or self-care (01) ==
LOC: EC 10:28
DX: S01.81XA Laceration without foreign body of other part of head, initial encounter (principal); S50.12XA Contusion of left forearm, initial encounter; F17.200 Nicotine dependence, unspecified, uncomplicated; Z88.0 Allergy status to penicillin; Z88.1 Allergy status to other antibiotic agents; Z88.2 Allergy status to sulfonamides; Z88.8 Allergy status to other drugs, medicaments and biological substances; Z86.16 Personal history of COVID-19; Y04.0XXA Assault by unarmed brawl or fight, initial encounter
CPT/HCPCS: 12002; 12013; 70450; 71111; 72125; 99285

== ENCOUNTER 2024-04-01 06:47 | Emergency (ER) | payer MEDICARE, OTHER ==
[2024-04-01 06:55] VITALS: BP 123/85; PULSE 97; RESP 16; TEMP 98.9
--- NOTE | 2024-04-01 07:35 | ED ---
General Adult HPI - General Chief complaint: Allergic Reaction Stated complaint: Rash/swelling on arms and face Time Seen by Provider: 04/01/24 07:01 Source: patient, RN notes reviewed, old records reviewed Mode of arrival: ambulatory - History of Present Illness Initial comments: 38-year-old male presenting for evaluation of bilateral upper extremity rash and rash to the left side of the face. Patient has remote history of craniofacial cancer s/p resection and reconstruction. He states his left eyelid does not completely close and he has persistent drainage. He has noted some increased erythema to the left cheek. He will denies dental pain stating that he does not have any teeth. No fever. Secondary complaint is of bilateral rash to the upper extremities which has been present for the past 3 weeks. He has recently started a new job and believes this may be related to his job. He has eczema at baseline but states that his rash has significantly worsened since taking this job. - Related Data Home Medications Medication Instructions Recorded Confirmed HYDROcodone/APAP 10-325MG [Vancourt 1 tab PO Q4H PRN 07/29/21 07/22/22 10-325] methocarbamoL [Robaxin] 1,000 mg PO TID 07/29/21 07/22/22 Gabapentin [Neurontin] 800 mg PO TID 05/22/22 07/22/22 Buprenorphine [Butrans 20 MCG/HOUR] 1 patch TRANSDERM SA 07/22/22 07/22/22 Previous Rx's Medication Instructions Recorded Cephalexin [Keflex] 500 mg PO Q6HR 10 Days #40 cap 04/01/24 Mupirocin 2% Oint [Bactroban 2% 1 applic TOPICAL TID #22 gm 04/01/24 Oint] methylPREDNISolone Dose Pack 4 mg PO DIRECTED #21 packet 04/01/24 [Medrol Dose Pack] Allergies Allergy/AdvReac Type Severity Reaction Status Date / Time Penicillins Allergy Rash/Hives Verified 04/01/24 06:55 sulfamethoxazole Allergy Rash/Hives Verified 04/01/24 06:55 [From Bactrim] trimethoprim [From Bactrim] Allergy Rash/Hives Verified 04/01/24 06:55 vancomycin Allergy Rash/Hives Verified 04/01/24 06:55 Review of Systems ROS Statement: Those systems with pertinent positive or pertinent negative responses have been documented in the HPI. ROS Other: All systems not noted in ROS Statement are negative. Past Medical History Past Medical History: Cancer Additional Past Medical History / Comment(s): Covid positive 04/01/21, L tympanic membrane perforation 6-7 months ago/treated with antibiotics past several months, 2014 jaw fracture/surgeries.CA left ear. and Brain, History of Any Multi-Drug Resistant Organisms: None Reported, MRSA Date of last positivie culture/infection: 04/02/21 MDRO Source:: MRSA EAR Past Surgical History: Ear Surgery, Hernia Repair Additional Past Surgical History / Comment(s): jaw fracture repositioned then ended up wired 05/04/14, inguinal hernia repair/pt cannot recall laterallity. Titanium plate removed from left side of head 01/06/22. Left ear removed due to brain cancer 04/2021. Past Anesthesia/Blood Transfusion Reactions: No Reported Reaction Past Psychological History: Anxiety, Bipolar, Depression Smoking Status: Current every day smoker Past Alcohol Use History: None Reported Past Drug Use History: None Reported, Marijuana - Past Family History Mother Additional Family Medical History / Comment(s): Mother is . Pt does not know her medical history. Father Family Medical History: Diabetes Mellitus, Neurologic Disorder Additional Family Medical History / Comment(s): Parkinson's disease General Exam General appearance: alert, in no apparent distress Head exam: Present: atraumatic, other (Postsurgical changes) Eye exam: Present: normal appearance, PERRL, other (Infraorbital drainage which patient states is normal). Absent: conjunctival injection Cardiovascular Exam: Present: regular rate, normal rhythm GI/Abdominal exam: Present: soft. Absent: distended, tenderness Extremities exam: Present: other (Excoriated erythematous raised rash on the bilateral upper extremities from the hands to the elbow) Neurological exam: Present: alert, oriented X3 Skin exam: Present: rash (Excoriated eczematous rash bilateral upper extremities) Course Vital Signs 04/01/24 06:51 Temperature 98.9 F Pulse Rate 97 Respiratory 16 Rate Blood Pressure 123/85 O2 Sat by Pulse 92 L Oximetry Medical Decision Making - Medical Decision Making Was pt. sent in by a medical professional or institution (, PA, CUSTOMER MANAGEMENT SPECIALIST, urgent care, hospital, or long-term...) When possible be specific @ -No Did you speak to anyone other than the patient for history (EMS, parent, family, police, friend...)? What history was obtained from this source @ -No Did you review nursing and triage notes (agree or disagree)? Why? @ -I reviewed and agree with nursing and triage notes Were old charts reviewed (outside hosp., previous admission, EMS record, old EKG, old radiological studies, urgent care reports/EKG's, long-term records)? Report findings @ -No old charts were reviewed MDM differentia: Contact dermatitis, eczema, Harmon-Milo's EKG interpreted by me (3pts min.). @ -As above X-rays interpreted by me (1pt min.). @ -None done CT interpreted by me (1pt min.). @ -None done U/S interpreted by me (1pt. min.). @ -None done What testing was considered but not performed or refused? (CT, X-rays, U/S, labs)? Why? @ -None What meds were considered but not given or refused? Why? @ -None Did you discuss the management of the patient with other professionals (professionals i.e. , PA, CUSTOMER MANAGEMENT SPECIALIST, lab, RT, psych nurse, social services counselor, wetlands conservation laborer, teacher, registration officer, rn case manager)? Give summary @ -No Was smoking cessation discussed for >3mins.? @ -No Was critical care preformed (if so, how long)? @ -No Were there social determinants of health that impacted care today? How? (Homelessness, low income, unemployed, alcoholism, drug addiction, transportation, low edu. Level, literacy, decrease access to med. care, assisted, rehab)? @ -No Was there de-escalation of care discussed even if they declined (Discuss DNR or withdrawal of care, Hospice)? DNR status @ -No What co-morbidities impacted this encounter? (DM, HTN, Smoking, COPD, CAD, Cancer, CVA, ARF, Chemo, Hep., AIDS, mental health diagnosis, sleep apnea, morbid obesity)? @ -None Was patient admitted / discharged? Hospital course, mention meds given and route, prescriptions, significant lab abnormalities, going to OR and other pertinent info. @ -38-year-old male with baseline eczema presenting with rash to the upper extremities and left side of his face. This does appear to be contact dermatitis over baseline eczema. Patient afebrile and otherwise well-appearing. He has secondary infection and will be placed on Bactrim and mupirocin as well Eucerin Undiagnosed new problem with uncertain prognosis? @ -No Drug Therapy requiring intensive monitoring for toxicity (Heparin, Nitro, Insulin, Cardizem)? @ -No Were any procedures done? @ -No Diagnosis/symptom? @ -[Contact dermatitis Acute, or Chronic, or Acute on Chronic? @ -Acute Uncomplicated (without systemic symptoms) or Complicated (systemic symptoms)? @ -Default Side effects of treatment? @ -No Exacerbation, Progression, or Severe Exacerbation? @ -No Poses a threat to life or bodily function? How? (Chest pain, [place], [place], pneumonia, PE, COPD, DKA, ARF, appy, cholecystitis, CVA, Diverticulitis, Homicidal, Suicidal, threat to staff... and all critical care pts) @ -No Disposition Clinical Impression: Contact dermatitis Disposition: HOME SELF-CARE Condition: Fair Instructions (If sedation given, give patient instructions): Contact Dermatitis (ED) Additional Instructions: Please apply antibiotic ointment to the open skin areas and apply Eucerin ointment to the affected areas. Take medications as prescribed Your rash is likely related to contact dermatitis from exposure at work. Please avoid contact with materials and chemicals as much as possible. Prescriptions: Mupirocin 2% Oint [Bactroban 2% Oint] 1 applic TOPICAL TID #22 gm Cephalexin [Keflex] 500 mg PO Q6HR 10 Days #40 cap methylPREDNISolone Dose Pack [Medrol Dose Pack] 4 mg PO DIRECTED #21 packet Is patient prescribed a controlled substance at d/c from ED?: No Referrals: Nonstaff,Physician [Primary Care Provider] - 1-2 days Time of Disposition: 07:33
== END 2024-04-01 07:49 | disposition home or self-care (01) ==
LOC: EC 06:47
DX: L25.9 Unspecified contact dermatitis, unspecified cause (principal); F17.200 Nicotine dependence, unspecified, uncomplicated; Z88.0 Allergy status to penicillin; Z88.1 Allergy status to other antibiotic agents; Z88.2 Allergy status to sulfonamides; Z88.8 Allergy status to other drugs, medicaments and biological substances; Z86.16 Personal history of COVID-19
CPT/HCPCS: 99283